=== PATIENT | female | born 1945 | race Caucasian/White ===

== ENCOUNTER → 2016-09-04 | Outpatient (CLI) | payer MEDICARE, OTHER ==
[2016-09-04 16:57] LABS: Anion Gap 12 mmol/L; Blood Urea Nitrogen 15 mg/dL (7-17); CH 29.7; CHCM 32.7; Carbon Dioxide 25 mmol/L (22-30); Chloride 103 mmol/L (98-107); HCT 41.8 % (34.0-46.0); HDW 2.66; HGB 13.2 gm/dL (11.4-16.0); MCH 28.9 pg (25.0-35.0); MCHC 31.7 g/dL (31.0-37.0); MCV 91.4 fL (80.0-100.0); Mean Platelet Volume 6.4; Non-African American GFR(MDRD) >60 (>60 ml/min/1.73 sqM); Potassium 3.7 mmol/L (3.5-5.1); RBC 4.58 m/uL (3.80-5.40); RDW 13.6 % (11.5-15.5); Sodium 140 mmol/L (137-145); WBC 6.7 k/uL (3.8-10.6)
== END | disposition home or self-care (01) ==
LOC: LABPAT 16:32
PROVIDERS: ATTEND Internal Medicine Interventional Cardiology
DX: Z01.812 Encounter for preprocedural laboratory examination (principal); I65.23 Occlusion and stenosis of bilateral carotid arteries
CPT/HCPCS: 80051; 82565; 84520; 85027

== ENCOUNTER 2016-09-18 06:20 | Day surgery (SDC) | payer MEDICARE, OTHER ==
[2016-09-14 08:44] VITALS: BMI 23.8
[~2016-09-18 06:20] MED LIST: SODIUM CHLORIDE 0.9% 1,000 ML in EMPTY BAG 1 BAG IV ONE
[2016-09-18 07:19] VITALS: RESP 16; TEMP 97.4
[2016-09-18] MEDS: MIDAZOLAM 2 MG/2 ML VIAL IV ONE ×2 (08:16→08:33)
[2016-09-18] MEDS ORDERED: LIDOCAINE 2% INJ 20 MG/ML SQ ONE ×2 (08:17→08:18)
[2016-09-18] MEDS ORDERED: IOHEXOL 350 MG/ML 100 ML BOTTLE INJ ONE (08:44)
[2016-09-18] MEDS ORDERED: SODIUM CHLORIDE 0.9% 1,000 ML IV SCH (09:00)
[2016-09-18] MEDS ORDERED: ACETAMINOPHEN IV (For NPO) 1,000 MG in EMPTY BAG 1 BAG IVPB STA (09:31)
--- NOTE | 2016-09-18 09:44 | PTCA ---
DATE OF SERVICE: 09/18/2016 PERFORMING PHYSICIAN: Medrado Brody M.D., Manager Urgent Care. PROCEDURE PERFORMED: 1. An aortic arch angiogram. 2. Selective right carotid angiogram. 3. Selective right and left carotid angiogram. INDICATION: This is a pleasant 71-year-old female patient with a known history of peripheral arterial disease as well as multiple comorbid conditions, who sees Dr. Lance Tarango as an outpatient, who underwent a carotid duplex study which showed severe right internal carotid artery disease. APPROACH: Right common femoral artery. COMPLICATIONS: None. LEVEL OF SEDATION: Moderate with a sedation length of 30 minutes. PROCEDURE DESCRIPTION: After obtaining an informed consent, the patient was brought to the Cardiac Sleeve Tailor. The right common femoral artery was cannulated using micropuncture technique under ultrasound guidance. The micropuncture wire passed easily, then I placed a 5 Danish sheath in the right common femoral artery. Subsequently, I did an aortic arch angiogram and I did selective right carotid angiogram using for the aortic arch a 5 Danish pigtail catheter and for the selective right carotid I uses JB2 catheter. The procedure was completed without any complication. SELECTIVE PERIPHERAL ANGIOGRAM: 1. The aortic arch is a type 2 arch, it is a calcified arch, without any aneurysmal dilatation. 2. The right carotid system: The right common carotid artery appeared to be angiographically normal. The right external carotid artery is angiographically normal. The right internal carotid artery has a critical lesion, seems to be in the range of 90%. 3. The left carotid appeared to have mild disease only. 4. The proximal left subclavian appeared to have a critical lesion, seems to be eccentric and very calcified in the range of 80% to 90%. CONCLUSION: 1. Type 2 aortic arch. 2. Critical right internal carotid disease. 3. Mild left carotid disease. 4. Critical disease involving the left subclavian artery.
[2016-09-18] MEDS ORDERED: fentaNYL (PF) 50 MCG/ML 2 ML AMP ONE (11:14)
--- NOTE | 2016-09-18 13:54 | IR ---
EXAMINATION TYPE: IR angio aortic arch DATE OF EXAM: 09/18/2016 9:02 AM COMPARISON: NONE HISTORY: Peripheral vascular occlusive disease. Fluoroscopy was applied to the referring clinician. See dictated report from cardiology.
[2016-09-18 15:51] VITALS: BP 128/58; PULSE 72
== END 2016-09-18 15:31 | disposition home health service (06) ==
LOC: CATHCVL 06:20
PROVIDERS: ATTEND Internal Medicine Interventional Cardiology
DX: I65.21 Occlusion and stenosis of right carotid artery (principal); I70.0 Atherosclerosis of aorta; I10 Essential (primary) hypertension; E78.00 Pure hypercholesterolemia, unspecified; Z95.1 Presence of aortocoronary bypass graft; Z82.49 Family history of ischemic heart disease and other diseases of the circulatory system; Z87.891 Personal history of nicotine dependence; Z79.82 Long term (current) use of aspirin; Z79.51 Long term (current) use of inhaled steroids; Z79.899 Other long term (current) drug therapy; Z88.8 Allergy status to other drugs, medicaments and biological substances
CPT/HCPCS: 76937; 36222; 99152; 99153; C1769 ×4; C1894; J2001; J2250; Q9967; J3010; J0131

== ENCOUNTER → 2016-10-27 | Outpatient (CLI) | payer MEDICARE, OTHER ==
[2016-10-27 13:02] LABS: CH 29.8; CHCM 32.9; HCT 41.6 % (34.0-46.0); HDW 2.54; HGB 13.2 gm/dL (11.4-16.0); MCH 28.9 pg (25.0-35.0); MCHC 31.8 g/dL (31.0-37.0); MCV 90.8 fL (80.0-100.0); Mean Platelet Volume 6.6; RBC 4.58 m/uL (3.80-5.40); RDW 13.8 % (11.5-15.5); WBC 7.5 k/uL (3.8-10.6)
[2016-10-27 13:15] LABS: Anion Gap 12 mmol/L; Blood Urea Nitrogen 19 mg/dL (7-17); Carbon Dioxide 26 mmol/L (22-30); Chloride 102 mmol/L (98-107); Non-African American GFR(MDRD) >60 (>60 ml/min/1.73 sqM); Potassium 4.2 mmol/L (3.5-5.1); Sodium 140 mmol/L (137-145)
== END | disposition home or self-care (01) ==
LOC: LABPAT 12:35
PROVIDERS: ATTEND Internal Medicine Interventional Cardiology
DX: Z01.812 Encounter for preprocedural laboratory examination (principal); I65.21 Occlusion and stenosis of right carotid artery
CPT/HCPCS: 80051; 82565; 84520; 85027; 87086

== ENCOUNTER 2016-11-06 07:21 | Inpatient (IN) | payer MEDICARE, OTHER ==
[2016-11-03 09:45] VITALS: BMI 23.4
[~2016-11-06 07:21] MED LIST changes: +ASPIRIN 325 MG TAB PO ONE
[2016-11-06] MEDS ORDERED: ASPIRIN 81 MG CHEW ONE (07:30)
[2016-11-06] MEDS ORDERED: LIDOCAINE 2% INJ 20 MG/ML SQ ONE (09:55)
[2016-11-06] MEDS ORDERED: BIVALIRUDIN BOLUS 250 MG/50 ML IV ONE (10:02)
[2016-11-06] MEDS ORDERED: BIVALIRUDIN 250 MG in SODIUM CHLORIDE 0.9% 50 ML IV ONE (10:08)
[2016-11-06] MEDS ORDERED: IOHEXOL 350 MG/ML 100 ML BOTTLE INJ ONE (11:36)
[2016-11-06] MEDS ORDERED: CLOPIDOGREL 75 MG TAB PO ONE (11:37)
[2016-11-06] MEDS ORDERED: ATROPINE SULFATE 0.1 MG/ML 10ML SYRINGE IV PRN (11:47)
[2016-11-06] MEDS ORDERED: NITROGLYCERIN SL TABS 0.4 MG TAB SUBLINGUAL PRN (11:47)
[2016-11-06] MEDS ORDERED: SODIUM CHLORIDE 0.9% 1,000 ML IV ONE (11:47)
[2016-11-06] MEDS ORDERED: MAG HYDROX/AL HYDROX/SIMETH 30 ML CUP PO PRN (11:47)
[2016-11-06] MEDS ORDERED: RX INFO: IV CONTRAST WAS GIVEN 1 EACH MISC MISCELLANE PRN (11:47)
[2016-11-06 12:29] LABS: Glucose,Whole Blood 114 mg/dL (75-99)
[2016-11-06] MEDS: ACETAMINOPHEN TAB 500 MG TAB PO PRN (13:38)
[2016-11-06] MEDS: IPRATROPIUM-ALBUTEROL 3 ML NEB INHALATION SCH ×3 (14:23→20:45)
[2016-11-06] MEDS: HYDROmorphone 1 MG/ML 1 ML SYRINGE IVP PRN ×2 (17:37→21:44)
[2016-11-06] MEDS: BUDESONIDE 1 MG/2 ML NEBU INHALATION SCH (20:45)
[2016-11-06] MEDS ORDERED: PRAVASTATIN SODIUM 20 MG TAB PO SCH (21:00)
[2016-11-07] MEDS: ONDANSETRON 4 MG/2 ML VIAL IVP PRN ×2 (01:15→08:50)
[2016-11-07] MEDS: HYDROmorphone 1 MG/ML 1 ML SYRINGE IVP PRN (04:18)
[2016-11-07 05:07] LABS: Basophils # (A) 0.1 k/uL (0-0.2); Basophils % (A) 1 %; CH 29.8; CHCM 32.8; Eosinophils # (A) 0.4 k/uL (0-0.7); Eosinophils % (A) 4 %; HCT 37.4 % (34.0-46.0); HDW 2.43; HGB 12.4 gm/dL (11.4-16.0); Luc # (Auto) 0.24; Luc % (Auto) 3; Lymphocytes # (A) 1.6 k/uL (1.0-4.8); Lymphocytes % (A) 18 %; MCH 30.2 pg (25.0-35.0); MCHC 33.2 g/dL (31.0-37.0); MCV 91.2 fL (80.0-100.0); Mean Platelet Volume 6.7; Monocytes # (A) 0.5 k/uL (0-1.0); Monocytes % (A) 6 %; Neutrophils # (A) 6.3 k/uL (1.3-7.7); Neutrophils % (A) 70 %; RDW 13.6 % (11.5-15.5); WBC 9.1 k/uL (3.8-10.6); WBC (Perox) 9.57
[2016-11-07 05:28] LABS: Anion Gap 9 mmol/L; Blood Urea Nitrogen 15 mg/dL (7-17); Calcium 9.5 mg/dL (8.4-10.2); Carbon Dioxide 22 mmol/L (22-30); Chloride 104 mmol/L (98-107); Glucose 125 mg/dL (74-99); Non-African American GFR(MDRD) >60 (>60 ml/min/1.73 sqM); Potassium 4.2 mmol/L (3.5-5.1); Sodium 135 mmol/L (137-145)
[2016-11-07 06:08] VITALS: TEMP 97.9
[2016-11-07] MEDS: BUDESONIDE 1 MG/2 ML NEBU INHALATION SCH (07:12)
[2016-11-07] MEDS: IPRATROPIUM-ALBUTEROL 3 ML NEB INHALATION SCH ×3 (07:12→15:21)
--- NOTE | 2016-11-07 07:31 | CE ---
DATE OF SERVICE: 11/06/2016 CAROTID STENTING PERFORMING PHYSICIAN: Medardo Brody MD, Advanced [employer] Associate. PROCEDURE PERFORMED: 1. Intracranial angiogram. 2. Selective right internal carotid angiogram. 3. Selective right common carotid angiogram. 4. Successful stenting of the right internal carotid artery using 8 to 6 x 30 mm exact self-expandable stent with a good angiographic result with adjunctive use 5 mm ( ) Shield filter for distal protection. 5. Selective right common femoral artery angiogram. INDICATION: This is a pleasant 71-year-old female patient who sees Dr. Constantino as well as sees Dr. Lance Tarango as an outpatient, who was found to have critical right internal carotid artery disease was identified by carotid duplex study as an outpatient as well as by carotid angiogram. She was brought today to undergo stenting of the right internal carotid artery. APPROACH: Right common femoral artery. COMPLICATIONS: None. LEVEL OF SEDATION: No medications were given for sedation for this procedure. PROCEDURE DESCRIPTION: After obtaining informed consent, the patient was brought to the Cardiac Book Jacket Cover Machine Operator. Right common femoral vein was cannulated using micropuncture technique. The micropuncture wire passed easily, then I placed a 6 Cameroonian sheath in the right common femoral vein. Subsequently, I did cannulate the right common femoral artery where I did cannulate that using micropuncture technique and the micropuncture wire passed easily, then at that point, I did exchange my micropuncture sheath into 90 cm 6 Cameroonian shutter sheath over an advantage wire but I had some difficulties advancing the sheath over the Glidewire, so I had to exchange my Glidewire into an advantage wire to get the sheath up in the descending aorta. Subsequently, anticoagulation was initiated using Angiomax. After that, I tried to cannulate the innominate artery using initially bottle gauger and I was unable. Then I tried using a Yin catheter and I was able to select the innominate. Subsequently, I did advance the Glidewire to the right common carotid artery. Then I advanced the Yin over the Glidewire, and I did selective right common carotid angiogram to prove that I was in the right structure. After that, I pulled the Glidewire, and I advanced initially an Advantage wire, and I tried to advance the shutter sheath over the Advantage wire and over the Yin but the sheath would not make the turn to innominate artery. At that point, I did exchange by Advantage wire into super core wire and I tried again and I was unable. After that, I did exchange my Yin catheter and I put the sheath dilator and I was able to get the sheath to the right common carotid artery. The dilator and wire were pulled out. Subsequently, I did intracranial angiogram and right common and internal carotid artery angiogram. After that, I did prep the ( ) filter and the filter was then deployed in the right internal carotid artery distal to the lesion. Subsequently, I did predilatation initially using 4.0 mm balloon. Subsequently, I deployed 8 to 6 x 30 mm self-expandable stent, where the stent was positioned under fluoroscopy guidance and then it was deployed. I post-dilated that stent using a 5 mm balloon. After that, I did selective right carotid angiogram which showed a good angiographic results with residual stenosis of about 20% to 30%. I did also intracranial angiogram. The procedure was completed without any complication. POSTPROCEDURE MANAGEMENT: 1. Dual antiplatelet therapy. 2. Risk factor modifications. 3. ICU admission. 4. Follow up with the patient.
[2016-11-07] MEDS ORDERED: ASPIRIN 325 MG TAB PO SCH (09:00)
--- NOTE | 2016-11-07 09:10 | IR ---
EXAMINATION TYPE: IR stent intravas non coronary DATE OF EXAM: 11/06/2016 12:12 PM COMPARISON: NONE HISTORY: Peripheral vascular occlusive disease. Fluoroscopy was applied to the referring clinician. See dictated report from cardiology.
[2016-11-07] MEDS ORDERED: CLOPIDOGREL 75 MG TAB PO SCH (12:00)
[2016-11-07] MEDS ORDERED: MULTIVITAMINS, THERA 1 EACH TAB PO SCH (12:00)
[2016-11-07] MEDS: ACETAMINOPHEN TAB 500 MG TAB PO PRN (12:21)
[2016-11-07 16:17] VITALS: BP 136/70; PULSE 76; RESP 17
--- NOTE | 2016-11-08 10:33 | DS ---
DATE OF ADMISSION: 11/06/2016 DATE OF DISCHARGE: 11/07/2016 This is a pleasant 71-year-old female patient with a past medical history significant for hypertension and dyslipidemia, who sees Dr. Lance Tarango as an outpatient, who was admitted to the hospital yesterday and underwent successful stenting of the right internal carotid artery with a good angiographic result and without any complication. The procedure was performed from the right groin. The right groin is soft and nontender and without any bruises. On follow-up with the patient today. She seems to be a bit nauseated and she was vomiting. Zofran was given to her with improvement in her symptoms. I am planning to keep the patient in the hospital for the next few hours. If she is feeling good, she might be able to be discharged home and I will follow up with the patient as an outpatient in the office next week. The patient is going to be discharged on dual antiplatelet therapy as well as a statin.
== END 2016-11-07 16:46 | disposition home or self-care (01) | DRG 36 ==
LOC: CATHCVL 07:21 → 6ICU 11:35 → OBSVTOIN 12:38 → 6ICU 12:38 → CATHCVL 12:38 → INTOOBSV 12:38
PROVIDERS: ADMIT Internal Medicine Interventional Cardiology; ATTEND Internal Medicine Interventional Cardiology
PROC: B3131ZZ Fluoroscopy of Right Common Carotid Artery using Low Osmolar Contrast (ICD-10-PCS; 2016-11-06)
PROC: B3161ZZ Fluoroscopy of Right Internal Carotid Artery using Low Osmolar Contrast (ICD-10-PCS; 2016-11-06)
PROC: B41F1ZZ Fluoroscopy of Right Lower Extremity Arteries using Low Osmolar Contrast (ICD-10-PCS; 2016-11-06)
PROC: 037K3DZ Dilation of Right Internal Carotid Artery with Intraluminal Device, Percutaneous Approach (ICD-10-PCS; principal; 2016-11-06 09:35)
DX: I65.21 Occlusion and stenosis of right carotid artery (principal); I10 Essential (primary) hypertension; E78.5 Hyperlipidemia, unspecified; I25.10 Atherosclerotic heart disease of native coronary artery without angina pectoris; E78.00 Pure hypercholesterolemia, unspecified; Z82.49 Family history of ischemic heart disease and other diseases of the circulatory system; Z95.1 Presence of aortocoronary bypass graft; Z87.891 Personal history of nicotine dependence; Z79.82 Long term (current) use of aspirin; Z79.51 Long term (current) use of inhaled steroids; Z79.899 Other long term (current) drug therapy
CPT/HCPCS: 37215; 80048; 85025; 94640

== ENCOUNTER 2016-11-10 18:57 | Emergency (ER) | payer MEDICARE, OTHER ==
--- NOTE | 2016-11-10 19:24 | ED ---
Chest Pain HPI - General Chief Complaint: Chest Pain Stated Complaint: CHEST PAIN Time Seen by Provider: 11/10/16 19:08 Source: patient Mode of arrival: ambulatory Limitations: no limitations - History of Present Illness Initial Comments: This patient is a 71-year-old woman who presents to be evaluated for substernal chest pain. She states that the symptoms came on about 2 hours ago after she had eaten peanut butter and crackers. She indicates the substernal area. States the pain as a tightness. She states it seems to come and go. It will last a number of minutes at a time, resolve but it does recur. The patient denies any worsening or relieving factors. She also denies any associated symptoms. MD Complaint: chest pain Onset/Timin -: hour(s) Onset: after eating Pain Location: substernal Pain Radiation: none Severity: moderate Quality: tightness Consistency: intermittent Improves With: nothing Worsens With: nothing Treatments Prior to Arrival: aspirin - Related Data Home Medications Medication Instructions Recorded Confirmed Multivit with Calcium,Iron,Min 1 tab PO DAILY 07/29/15 11/10/16 [Women's Daily Multivitamin] Budesonide [Pulmicort Flexhaler] 2 puff INHALATION RT-BID 09/14/16 11/10/16 Ipratropium-Albuterol Nebulize 3 ml INHALATION RT-QID 09/14/16 11/10/16 [Duoneb 0.5 mg-3 mg/3 ml Soln] amLODIPine [Norvasc] 5 mg PO DAILY 09/14/16 11/10/16 diphenhydrAMINE HCL [Benadryl] 50 mg PO BID PRN 11/10/16 11/10/16 Previous Rx's Medication Instructions Recorded Acetaminophen Tab [Tylenol] 500 mg PO Q6H PRN #30 tablet 04/22/16 Pravastatin Sodium [Pravachol] 20 mg PO HS #30 tab 04/22/16 Aspirin 325 mg PO DAILY #90 tab 11/07/16 Clopidogrel [Plavix] 75 mg PO DAILY #90 tab 11/07/16 Allergies Allergy/AdvReac Type Severity Reaction Status Date / Time egg Allergy Unknown Verified 11/10/16 19:24 ibuprofen Allergy Rash/Hives Verified 11/10/16 19:24 shellfish derived [Shrimp] Allergy Rash/Hives Verified 11/10/16 19:24 tomato Allergy Unknown Verified 11/10/16 19:24 Review of Systems ROS Statement: Those systems with pertinent positive or pertinent negative responses have been documented in the HPI. ROS Other: All systems not noted in ROS Statement are negative. Constitutional: Denies: fever, chills Respiratory: Denies: cough, dyspnea, wheezes Cardiovascular: Reports: chest pain. Denies: palpitations, orthopnea, edema, syncope Gastrointestinal: Denies: abdominal pain, nausea, vomiting Genitourinary: Denies: dysuria, hematuria Musculoskeletal: Denies: back pain Skin: Denies: rash Neurological: Denies: headache, weakness, numbness EKG Findings - EKG Results: EKG: interpreted by FLOR CASPER (Rate equals 69 bpm), sinus rhythm, normal axis, normal QRS, normal ST/T, no acute changes Past Medical History Past Medical History: Asthma, Coronary Artery Disease (CAD), Hyperlipidemia, Hypertension, Osteoarthritis (OA), Vascular Disorder Additional Past Medical History / Comment(s): STATES HEAD INJURY R/T A FALL, OSTEOPOROSIS, CHRONIC BACK PAIN, PAD, STATES USES A WHEELCHAIR MOST OF TIME, states has edema in both lower extrem. History of Any Multi-Drug Resistant Organisms: None Reported Past Surgical History: Coronary Bypass/CABG Additional Past Surgical History / Comment(s): CYST REMOVED FROM FINGER, FEM/FEM , SPINAL FUSION NECK, COURTNEY CATARACT SX, has a stent in R groin. stent in cartoid artery (right) Past Anesthesia/Blood Transfusion Reactions: No Reported Reaction Past Psychological History: No Psychological Hx Reported Smoking Status: Former smoker Past Alcohol Use History: None Reported Additional Past Alcohol Use History / Comment(s): quit smoking 2003, smoked for 45 yrs. SMOKED 1 PPD Past Drug Use History: None Reported - Past Family History Sister(s) Family Medical History: Cancer Additional Family Medical History / Comment(s): 2 sisters with breast ca Father Family Medical History: Myocardial Infarction (OK) Additional Family Medical History / Comment(s): several mi's Mother History Unknown: Yes Additional Family Medical History / Comment(s): mom was healthdied from natural causes. General Exam Limitations: no limitations General appearance: alert, in no apparent distress Head exam: Present: atraumatic, normocephalic Eye exam: Present: normal appearance. Absent: scleral icterus, conjunctival injection ENT exam: Present: normal oropharynx Neck exam: Present: normal inspection Respiratory exam: Present: normal lung sounds bilaterally. Absent: respiratory distress, wheezes, rales, rhonchi, stridor Cardiovascular Exam: Present: regular rate, normal rhythm, systolic murmur ( Patient has a grade 3/6 systolic ejection murmur at the left sternal border.). Absent: diastolic murmur, rubs, gallop GI/Abdominal exam: Present: soft. Absent: distended, tenderness, guarding, rebound, rigid, mass Extremities exam: Present: normal inspection, normal capillary refill. Absent: pedal edema, calf tenderness Back exam: Present: normal inspection. Absent: CVA tenderness (R), CVA tenderness (L) Neurological exam: Present: alert Skin exam: Present: warm, dry, intact, normal color. Absent: rash Course Vital Signs 11/10/16 11/10/16 11/10/16 19:00 19:03 21:25 Temperature 98.9 F 97.7 F Pulse Rate 76 77 69 Respiratory 18 20 18 Rate Blood Pressure 150/66 156/73 147/66 O2 Sat by Pulse 98 98 96 Oximetry 11/10/16 22:05 Temperature 97.9 F Pulse Rate 71 Respiratory 18 Rate Blood Pressure 145/67 O2 Sat by Pulse 96 Oximetry - Reevaluation(s) Reevaluation #1: 11/10/16 21:54 I reevaluated the patient about 40 minutes ago. The patient at that time states she is symptom-free and wants to go home. I did discuss with her previous history of significant vasculopathy that I would like to have her admitted to have the elocution teacher's check her, have telemetry monitoring, have serial cardiac enzymes. The patient is declining this. We did discuss rationale for having repeat troponin and she is willing to stay for this, and then would like to go home. Discussed risks associated and the patient willing to accept those. Disposition Clinical Impression: Unstable angina pectoris Disposition: HOME SELF-CARE Condition: Fair Instructions: Angina (ED) Referrals: Regan Constantino MD [Primary Care Provider] - 1-2 days
[2016-11-10 19:53] LABS: Basophils # (A) 0.1 k/uL (0-0.2); Basophils % (A) 1 %; CH 29.8; CHCM 33.7; Eosinophils # (A) 0.5 k/uL (0-0.7); Eosinophils % (A) 7 %; HCT 35.3 % (34.0-46.0); HDW 2.48; Luc # (Auto) 0.22; Luc % (Auto) 3; Lymphocytes # (A) 1.4 k/uL (1.0-4.8); Lymphocytes % (A) 21 %; MCH 30.2 pg (25.0-35.0); MCV 88.7 fL (80.0-100.0); Mean Platelet Volume 6.9; Monocytes # (A) 0.4 k/uL (0-1.0); Monocytes % (A) 6 %; Neutrophils # (A) 4.1 k/uL (1.3-7.7); Neutrophils % (A) 62 %; RBC 3.98 m/uL (3.80-5.40); RDW 13.8 % (11.5-15.5); WBC 6.6 k/uL (3.8-10.6); WBC (Perox) 6.69
[2016-11-10 20:02] LABS: ALT 43 U/L (9-52); AST 25 U/L (14-36); Alkaline Phosphatase 83 U/L (38-126); Anion Gap 11 mmol/L; Blood Urea Nitrogen 16 mg/dL (7-17); Calcium 9.7 mg/dL (8.4-10.2); Carbon Dioxide 25 mmol/L (22-30); Chloride 106 mmol/L (98-107); Glucose 100 mg/dL (74-99); Magnesium 2.1 mg/dL (1.6-2.3); Non-African American GFR(MDRD) >60 (>60 ml/min/1.73 sqM); Sodium 142 mmol/L (137-145); Total Bilirubin 0.2 mg/dL (0.2-1.3); Total Protein 6.9 g/dL (6.3-8.2)
[2016-11-10 20:03] LABS: INR 0.9 (<1.1); Prothrombin Time 9.7 sec (9.0-12.0)
[2016-11-10 20:04] LABS: Partial Thromboplastin Time 21.5 sec (22.0-30.0)
--- NOTE | 2016-11-10 20:10 | XR ---
EXAMINATION TYPE: XR chest 1V portable DATE OF EXAM: 11/10/2016 7:51 PM COMPARISON: NONE HISTORY: Chest pain and history of asthma. TECHNIQUE: Single frontal view of the chest is obtained. FINDINGS: There is no focal air space opacity, pleural effusion, or pneumothorax seen. The cardiac silhouette size is within normal limits. The osseous structures are intact. There are postsurgical changes of the chest visualized as well as partial visualization of cervical fusion device. IMPRESSION: No acute cardiopulmonary process. Postsurgical changes of the chest and cervical spine.
[2016-11-10 20:17] LABS: Creatine Kinase 49 U/L (30-135)
[2016-11-10 20:30] LABS: Creatine Kinase MB 0.9 ng/mL (0.0-2.4); Troponin I <0.012 ng/mL (0.000-0.034)
[2016-11-10 21:27] VITALS: RESP 18
[2016-11-10 23:28] VITALS: BP 155/67; PULSE 67; TEMP 97.7
== END 2016-11-10 23:28 | disposition home or self-care (01) ==
LOC: EC 18:57
DX: I20.0 Unstable angina (principal); I25.810 Atherosclerosis of coronary artery bypass graft(s) without angina pectoris; I10 Essential (primary) hypertension; J45.909 Unspecified asthma, uncomplicated; Z99.3 Dependence on wheelchair; Z87.891 Personal history of nicotine dependence; Z79.899 Other long term (current) drug therapy; Z79.51 Long term (current) use of inhaled steroids; Z91.013 Allergy to seafood; Z88.8 Allergy status to other drugs, medicaments and biological substances; Z91.018 Allergy to other foods
CPT/HCPCS: 36415; 71010; 80053; 82550; 82553; 83735; 84484; 85025; 85610; 85730; 93005; 99285

== ENCOUNTER → 2017-01-17 | Outpatient (CLI) | payer MEDICARE, OTHER ==
--- NOTE | 2017-01-17 13:12 | MM ---
Reason for exam: screening (asymptomatic). Last mammogram was performed 1 year and 6 months ago. History: Patient is postmenopausal. Family history of breast cancer in maternal aunt and breast cancer in sister at age 60. Benign US RT VAD breast biopsy of the right breast, July 14, 2011. Benign US right guided VAD of the right breast, June 24, 2009. Took hormonal contraceptives for 1 year beginning at age 18. Physical Findings: A clinical breast exam by your physician is recommended on an annual basis and results should be correlated with mammographic findings. MG 3D Screening Mammo W/Cad Bilateral CC and MLO view(s) were taken. Prior study comparison: July 27, 2015, bilateral MG screening mammo w CAD. July 02, 2014, bilateral MG screening mammo w CAD. The breast tissue is heterogeneously dense. This may lower the sensitivity of mammography. Benign calcifications. Nodular density upper outer quadrant in the right breast 7 cm from nipple. This finding is changed when compared with previous exams. ASSESSMENT: Incomplete: need additional imaging evaluation, BI-RAD 0 RECOMMENDATION: Special view mammogram of the right breast. If lesion persists on supplemental views, image directed ultrasound is recommended. [facility] will attempt to contact patient to return for supplemental views and ultrasound if indicated.
== END | disposition home or self-care (01) ==
LOC: RADMAMWWP 09:19
PROVIDERS: ATTEND Family Medicine
DX: Z12.31 Encounter for screening mammogram for malignant neoplasm of breast (principal); R92.2 Inconclusive mammogram; Z78.0 Asymptomatic menopausal state
CPT/HCPCS: 77063; G0202

== ENCOUNTER → 2017-01-19 | Outpatient (CLI) | payer MEDICARE, OTHER ==
--- NOTE | 2017-01-19 12:55 | MR ---
MR lumbar spine wo con Lumbar pain, weakness, walking difficulty, stenosis Multiplanar, multiecho imaging of the lumbar spine was obtained without contrast on a 3 Ca magnet. REFERENCE:None. FINDINGS: Paraspinal soft tissues are normal. There is a mild, degenerative grade 1 spondylolisthesis of L4 and L5. Vertebral body height and align ment otherwise maintained. Cord signal is maintained. The conus ends normally at the level of the L1-2 disc. At T12-L1, there is mild hypertrophic change in the facets. At L1-2, there is mild capsulitis and hypertrophic change in the facets. At L2-3, there is a bilobed disc displacement. Intervertebral foramina are widely maintained. There i s hypertrophic change and capsulitis within the facets. There is mild trefoiling of the thecal sac. At L3-4, the intervertebral foramina are well maintained. There are hypertrophic changes and capsulit is within the facets. There is mild trefoiling of the thecal sac. At L4-5, there is disc space loss and disc desiccation. There is a broad-based disc protrusion extend ing into the intervertebral foramina causing intervertebral foraminal narrowing worse on the left charity n the right. There is hypertrophic changes and capsulitis within the facets. There is mild central ca nal stenosis. At L5-S1, is disc space loss and disc desiccation. There is a central disc protrusion effacing the th ecal sac. This is also effacing the traversing S1 nerve roots bilaterally. The intervertebral foramin a appear well maintained. There is hypertrophic change within the facets. IMPRESSION: 1. DIFFUSE DEGENERATIVE DISC DISEASE AND FACET ARTHROPATHY. 2. MILD DEGENERATIVE GRADE 1 SPONDYLOLISTHESIS OF L4 ON L5. 3. MULTILEVEL INTERVERTEBRAL FORAMINAL NARROWING. 4. BROAD-BASED DISC PROTRUSION, L4-5 EXTENDING INTO THE INTERVERTEBRAL FORAMINA AND CAUSING INTERVERT EBRAL FORAMINAL NARROWING BILATERALLY WORSE ON THE LEFT THAN THE RIGHT. 5. SYNCOPE DISC PROTRUSION, L5-S1 EFFACING THE THECAL SAC AND ALSO THE TRAVERSING S1 NERVE ROOTS BILA TERALLY.
== END | disposition home or self-care (01) ==
LOC: RADMRIMAIN 11:26
PROVIDERS: ATTEND Orthopaedic Surgery
DX: M99.72 Connective tissue and disc stenosis of intervertebral foramina of thoracic region (principal); M43.16 Spondylolisthesis, lumbar region; M51.27 Other intervertebral disc displacement, lumbosacral region; M51.36 Other intervertebral disc degeneration, lumbar region; R55 Syncope and collapse
CPT/HCPCS: 72148

== ENCOUNTER → 2017-01-23 | Outpatient (CLI) | payer MEDICARE, OTHER ==
--- NOTE | 2017-01-23 14:10 | MM ---
Reason for exam: additional evaluation requested from abnormal screening. Last mammogram was performed less than 1 month ago. History: Patient is postmenopausal. Family history of breast cancer in maternal aunt and breast cancer in sister at age 60. Benign US RT VAD breast biopsy of the right breast, July 14, 2011. Benign US right guided VAD of the right breast, June 24, 2009. Took hormonal contraceptives for 1 year beginning at age 18. Physical Findings: Nurse did not find any significant physical abnormalities on exam. MG 3D Work Up W/Cad RT ML, spot compression CC, and spot compression MLO view(s) were taken of the right breast. Prior study comparison: January 17, 2017, bilateral MG 3d screening mammo w/cad. July 27, 2015, bilateral MG screening mammo w CAD. July 02, 2014, bilateral MG screening mammo w CAD. Nodular density does not persist on addiitonal views. These results were verbally communicated with the patient and result sheet given to the patient on 01/23/17. ASSESSMENT: Benign, BI-RAD 2 RECOMMENDATION: Return to routine screening mammogram schedule for both breasts.
== END | disposition home or self-care (01) ==
LOC: RADMAMWWP 12:50
PROVIDERS: ATTEND Family Medicine
DX: R92.8 Other abnormal and inconclusive findings on diagnostic imaging of breast (principal)
CPT/HCPCS: G0206; G0279

== ENCOUNTER → 2017-02-02 | Outpatient (CLI) | payer MEDICARE, OTHER ==
--- NOTE | 2017-02-02 15:58 | BD ---
EXAMINATION TYPE: MG DEXA axial skeleton. DATE OF EXAM: 02/02/2017 COMPARISON: 01.11.2016 CLINICAL HISTORY: V49.81 POST MENOPAUSAL STATUS, Z78.0 ASYMPTOMATIC MENOPAUSAL BONE MINERAL DENSITY: HISTORY: Postmenopausal female. OSTEOPOROSIS RISK FACTOR QUESTIONNAIRE -----Height: 60 IN -----Weight: 132 LBS FRAX RISK QUESTIONS: -----Alcohol (3 or more units per day): NO -----Family History (Parent hip fracture): NO -----Glucocorticoids (More than 3mos): NO (Ex: prednisone, prednisilone, methylprednisilone, dexamethasone, and hydrocortisone). -----History of Fracture in Adulthood: NO -----Secondary Osteoporosis: (1) Type 1 Diabetes: NO (2) Hyperthyroidism: NO (3) Menopause before 45: NO (4) Malnutrition: NO (5) Chronic liver disease: NO -----Rheumatoid Arthritis: NO -----Current Tobacco Use: NO RISK FACTORS: HISTORY OF: -----Active: MODERATE -----Postmenopausal woman: AGE 47 -----Frequent falls: YES RT LEG DRAGS MEDICATIONS: Currently use: -----Additional Medications: CALCIUM, VIT D, PRAVASTATIN, FISH OIL, MULTI VIT, GABAPENTIN, ALLERGY P ILLS, BABY ASPIRIN, EXAM MEASUREMENTS: Bone mineral densitometry was performed using the WeVue System. Bone mineral density as measured about the Lumbar spine is: ----- L1-L4(G/cm2): 1.244 T Score Values are as follows: ----- L2: -0.6 ----- L3: 1.4 ----- L4: 2.2 ----- L1-L4: 0.5 Bone mineral density has: Increased 22.2 % since study of: 05/07/2012 Bone mineral density about the R hip (g/cm2): 0.971 Bone mineral density about the L hip (g/cm2): 0.909 T Score values are as follows: -----R Neck: -0.5 -----L Neck: -0.9 -----R Intertrochanter: -1.3 -----L Intertrochanter: -0.5 Bone mineral density has: Increased 5.4 % since study of: 05/07/2012 IMPRESSION: -----Osteopenia (T Score between -2.5 and -1 as noted by T score values) RT HIP There is slightly increased risk of fracture and the patient may be considered for treatment. Re-Screen 1-2 years. NOTE: T-SCORE=SD OF THE YOUNG ADULT MEAN. Height: Weight: FRAX RISK QUESTIONS: Alcohol (3 or more units per day): NO Family History (Parent hip fracture): NO Glucocorticoids (More than 3mos): YES (Ex: prednisone, prednisolone, methylprednisolone, dexamethasone, and hydrocortisone). History of Fracture in Adulthood: NO Secondary Osteoporosis: NO 1. Type 1 Diabetes: NO 2. Hyperthyroidism: NO 3. Menopause before 45: NO 4. Malnutrition: NO 5. Chronic liver disease: NO Rheumatoid Arthritis: NO Current Tobacco Use: NO RISK FACTORS HISTORY OF: Family History of Osteoporosis: NO Active: NO Diet low in dairy products/other sources of calcium: NO Postmenopausal woman: 48 Lost more than 2 inches in height since high school: PROBABLY Frequent falls: IN W/C..BELTED Poor Health: FRAIL Hyperparathyroidism: NO Adrenal Insufficiency: NO MEDICATIONS: Prednisone or other steroids: ASTHMA, INHALERS How Long: FOR YRS Additional Medications: BP MEDS, STATINS, Additional History: BACK PAIN AND INSTABILITY, PT IN WHEELCHAIR EXAM MEASUREMENTS: Bone mineral densitometry was performed using the WeVue System. Bone mineral density as measured about the Lumbar spine is: ----- L1-L4(G/cm2): 1.133 T Score Values are as follows: ----- L1: -2.7 ----- L2: -1.1 ----- L3: 0.0 ----- L4: 1.6 ----- L1-L4: -0.4 Bone mineral density has: [facility] of: 01.11.2016 Bone mineral density about the R hip (g/cm2): 0.854 Bone mineral density about the L hip (g/cm2): 0.888 T Score values are as follows: -----R Neck: -1.3 -----L Neck: -1.1 -----R Total: -1.2 -----L Total: -1.0 Bone mineral density has: Decreased -8.9%nce study of: 01.11.2016 FRAX%'S: THERE IS A 9.9% CHANCE OF A MAJOR OSTEOPOROTIC FX AND A 1.7% CHANCE FOR A HIP FX.....PRO BABILITY IN 10 YRS TIME IMPRESSION: Osteopenia (T Score between -2.5 and -1 as noted by T score values There is slightly increased risk of fracture and the patient may be considered for treatment. Re-Screen 2-5 years. Bone density is diminished 7.3% within the lumbar spine from 01/11/2016 NOTE: T-SCORE=SD OF THE YOUNG ADULT MEAN.
== END | disposition home or self-care (01) ==
LOC: RADBDWWP 14:02
PROVIDERS: ATTEND Family Medicine
DX: M85.89 Other specified disorders of bone density and structure, multiple sites (principal); Z78.0 Asymptomatic menopausal state
CPT/HCPCS: 77080

== ENCOUNTER 2017-05-21 11:58 | Inpatient (IN) | payer MEDICARE, OTHER ==
[2017-05-21] MEDS ORDERED: RX INFO: IV CONTRAST WAS GIVEN 1 EACH MISC MISCELLANE PRN (12:40)
[2017-05-21 13:41] LABS: Basophils # (A) 0.1 k/uL (0-0.2); Basophils % (A) 1 %; CH 28.9; CHCM 32.7; Eosinophils # (A) 0.6 k/uL (0-0.7); Eosinophils % (A) 8 %; HCT 39.3 % (34.0-46.0); HDW 2.49; HGB 12.9 gm/dL (11.4-16.0); Luc # (Auto) 0.15; Luc % (Auto) 2; Lymphocytes # (A) 1.3 k/uL (1.0-4.8); Lymphocytes % (A) 17 %; MCH 29.1 pg (25.0-35.0); MCHC 32.8 g/dL (31.0-37.0); MCV 88.7 fL (80.0-100.0); Monocytes # (A) 0.4 k/uL (0-1.0); Monocytes % (A) 6 %; Neutrophils # (A) 5.1 k/uL (1.3-7.7); Neutrophils % (A) 67 %; RBC 4.44 m/uL (3.80-5.40); RDW 14.8 % (11.5-15.5); WBC 7.7 k/uL (3.8-10.6); WBC (Perox) 7.89
--- NOTE | 2017-05-21 13:50 | XR ---
EXAMINATION TYPE: XR KUB DATE OF EXAM: 05/21/2017 COMPARISON: NONE HISTORY: Pain TECHNIQUE: Single supine KUB image of the abdomen is obtained FINDINGS: Small bowel demonstrates no evidence for dilatation or air fluid levels. Gas and fecal material is seen in non-distended colon. No convincing evidence for pneumoperitoneum. No unusual calcifications. The lung bases are clear. The osseous structures are intact. IMPRESSION: 1. Overall nonobstructive bowel gas pattern.
[2017-05-21 13:53] LABS: ALT 24 U/L (9-52); AST 17 U/L (14-36); Alkaline Phosphatase 93 U/L (38-126); Amylase <30 U/L (30-110); Anion Gap 12 mmol/L; Blood Urea Nitrogen 20 mg/dL (7-17); Calcium 9.9 mg/dL (8.4-10.2); Carbon Dioxide 21 mmol/L (22-30); Chloride 105 mmol/L (98-107); Glucose 119 mg/dL (74-99); Non-African American GFR(MDRD) >60 (>60 ml/min/1.73 sqM); Potassium 4.3 mmol/L (3.5-5.1); Sodium 138 mmol/L (137-145); Total Bilirubin 0.3 mg/dL (0.2-1.3)
--- NOTE | 2017-05-21 15:14 | CT ---
EXAMINATION TYPE: CT abdomen pelvis w con DATE OF EXAM: 05/21/2017 HISTORY: Lower pelvic pain. CT DLP: 389.7mGycm Automated Exposure Control for Dose Reduction was Utilized. CONTRAST: CT scan of the abdomen and pelvis is performed with IV Contrast, patient injected with 100 mL of Omni paque 300. COMPARISON: None. FINDINGS: LUNG BASES: Bibasilar subsegmental dependent atelectasis is present. LIVER/GB: There is no intrahepatic biliary ductal dilatation. Hepatic parenchyma enhances homogeneous ly without focal lesion. The gallbladder is elongated without pericholecystic fluid or right upper qu adrant fat stranding, however common bile duct is mildly enlarged for the patient's age at 8 oh meter s and coronal images. Additionally there is prominence of the pancreatic duct measuring up to 4 mm at the pancreatic head. No discrete pancreatic mass is seen, however further workup is recommended to e nsure no underlying obstructing mass. PANCREAS: Ductal dilatation as described above is evident. No discrete pancreatic masses seen. SPLEEN: No significant abnormality is seen. ADRENALS: Right adrenal gland is unremarkable. In the left adrenal gland there is a 1.8 x 2.3 cm nodu le best seen on coronal images on series 7 image 33 and on axial images series 3 image 21. This is hi gh density and not compatible with a benign adenoma. KIDNEYS: The kidneys enhance and excrete symmetrically without focal mass. BOWEL: Large amount of stool in rectal gas identified with the rectum distended up to 7.4 cm. Moderat e amount of retained stool seen throughout the remainder of the nondilated colon. No evidence of sharon l obstruction. Small bowel feces sign is identified throughout the distal small bowel compatible with decreased propulsion and/or ileus/increased transit time. UTERUS/ADNEXA: Calcified dystrophic uterine leiomyoma is present. LYMPH NODES: No greater than 1cm abdominal or pelvic lymph nodes are appreciated. OSSEOUS STRUCTURES: Multilevel resection of the posterior elements from L3 through S1 is seen with pe dicular screws and fixation rods creating spray artifact and partially obscuring visualization of the surrounding structures including the abdominal aorta. OTHER: There is an infrarenal abdominal aortic aneurysm measuring up to 3.0 x 3.1 x 5.6 cm. The dista l aspect of this aneurysm there is an aortoiliac stent graft extending into the right common iliac ar fidel. There is total occlusion of the left common iliac artery with a femoral-femoral bypass graft an d patency of the proximal visualized femoral artery on the left. There is patency of the right common and external as well as visualized internal iliac arteries. IMPRESSION: 1. Distention of the rectum with stool and gas up to 7.4 cm with moderate amount of retained colonic stool and no evidence of bowel obstruction although small bowel feces sign is seen throughout the sma ll bowel indicative of ileus/increased transit time. 2. Common bile duct and pancreatic ductal dilatation without discrete mass although findings raise sewell spicion for underlying pancreatic mass and MRCP with and without contrast is recommended for further evaluation and/or endoscopy. 3. Left adrenal gland nodule measuring 2.3 cm that is not compatible with a benign adenoma and can al so be evaluated on the above recommended MRI. 4. Total occlusion of the left common iliac artery with patency of the right common iliac artery and patency of the femorofemoral bypass graft and upper visualized left femoral artery. 5. Infrarenal abdominal aortic aneurysm with right patent aortoiliac endograft.
[2017-05-21 15:20] LABS: Appearance,Urine Clear (Clear); Bilirubin,Urine Negative (Negative); Glucose,Urine (UA) Negative (Negative); Ketones,Urine Negative (Negative); Leukocyte Esterase,Urine Negative (Negative); Nitrite,Urine Negative (Negative); PH, Urine 6.5 (5.0-8.0); Protein,Urine Negative (Negative); Specific Gravity,Urine 1.031 (1.001-1.035); UA Billing (MACRO vs. MICRO) CHEM; Urobilinogen,Urine <2.0 mg/dL (<2.0)
[2017-05-21] MEDS ORDERED: POLYETHYLENE GLYCOL 3350 17 GM POWD.PACK PO STA (15:30)
[2017-05-21] MEDS ORDERED: DOCUSATE 100 MG CAP PO STA (15:30)
[2017-05-21] MEDS ORDERED: ONDANSETRON 4 MG/2 ML VIAL IVP PRN (15:33)
[2017-05-21] MEDS ORDERED: NA PHOS,M-B/NA PHOS,DI-BA 133 ML ENEMA RECTAL PRN ×2 (15:33→15:37)
[2017-05-21] MEDS ORDERED: NALOXONE 0.4 MG/ML 1 ML VIAL IV PRN (15:33)
[2017-05-21] MEDS ORDERED: DOCUSATE 100 MG CAP PO PRN (15:33)
[2017-05-21] MEDS ORDERED: BISACODYL 10 MG SUPP RECTAL PRN ×2 (15:33→15:37)
--- NOTE | 2017-05-21 15:33 | ED ---
Abdominal Pain HPI - General Chief Complaint: Abdominal Pain Stated Complaint: abdominal pain Time Seen by Provider: 05/21/17 12:27 Source: patient, EMS Mode of arrival: EMS Limitations: no limitations - History of Present Illness Initial Comments: Patient complains of abdominal pain, discomfort, distention. Her symptoms are getting worse for several days. She has taken no medication for this. It has been greater than 5 days since she had a bowel movement. She has no chest or back pain. She has no lightheadedness or dizziness. She has no unusual bleeding. She has no black or tarry stool. - Related Data Home Medications Medication Instructions Recorded Confirmed Ipratropium-Albuterol Nebulize 3 ml INHALATION RT-QID@08,,,09/14/1605/21 [Duoneb 0.5 mg-3 mg/3 ml Soln] amLODIPine [Norvasc] 5 mg PO DAILY@0800 09/14/16 05/21/17 Acetaminophen Tab [Tylenol Tab] 500 mg PO Q8H PRN 05/21/17 05/21/17 Aspirin 81 mg PO DAILY@1700 05/21/17 05/21/17 Baclofen 10 mg PO TID@0600,1400,209905/21/17 05/21/17 Bisacodyl [Dulcolax] 10 mg RECTAL DAILY PRN 05/21/17 05/21/17 Budesonide [Pulmicort] 0.5 mg INHALATION RT-BID 05/21/17 05/21/17 Clopidogrel [Plavix] 75 mg PO DAILY@0800 05/21/17 05/21/17 Docusate [Colace] 100 mg PO DAILY@0800 05/21/17 05/21/17 Docusate [Colace] 200 mg PO HS@2100 05/21/17 05/21/17 Ferrous Sulfate [Feosol] 325 mg PO DAILY@1700 05/21/17 05/21/17 Gabapentin [Neurontin] 200 mg PO TID@0800,1400,2100 05/21/17 05/21/17 Isosorbide Dinitrate [Isordil] 20 mg PO BID@0800,1700 05/21/17 05/21/17 Lidocaine 5% Patch [Lidoderm] 1 patch TOPICAL DAILY 05/21/17 05/21/17 Lisinopril [Zestril] 10 mg PO DAILY@0800 05/21/17 05/21/17 Magnesium Hydroxide [Milk of 2,400 mg PO DAILY PRN 05/21/17 05/21/17 Magnesia] Methocarbamol [Robaxin-750] 750 mg PO Q6H PRN 05/21/17 05/21/17 Metoprolol Tartrate [Lopressor] 25 mg PO BID@0800,1700 05/21/17 05/21/17 Na Phos,M-B/Na Phos,Di-Ba [Fleet 133 ml RECTAL DAILY PRN 05/21/17 05/21/17 Adult] Nitroglycerin Sl Tabs [Nitrostat] 0.4 mg SUBLINGUAL Q5M PRN 05/21/17 05/21/17 Ondansetron [Zofran] 4 mg PO Q8HR PRN 05/21/17 05/21/17 Polyethylene Glycol 3350 [Miralax] 17 gm PO DAILY@0800 05/21/17 05/21/17 Psyllium Husk (with Sugar) 6 gm PO DAILY@0800 05/21/17 05/21/17 [Metamucil Powder] guaiFENesin [Diabetic Tussin Ex] 200 mg PO Q4H PRN 05/21/17 05/21/17 oxyCODONE HCL [Oxyir] 10 mg PO Q3H PRN 05/21/17 05/21/17 Allergies Allergy/AdvReac Type Severity Reaction Status Date / Time acetaminophen [From [place]] Allergy Unknown Verified 05/21/17 12:06 codeine Allergy Unknown Verified 05/21/17 12:06 egg Allergy Unknown Verified 11/10/16 19:24 hydrocodone [From [place]] Allergy Unknown Verified 05/21/17 12:06 hydromorphone [From Dilaudid] Allergy Unknown Verified 05/21/17 12:06 ibuprofen Allergy Rash/Hives Verified 11/10/16 19:24 shellfish derived [Shrimp] Allergy Rash/Hives Verified 11/10/16 19:24 tomato Allergy Unknown Verified 11/10/16 19:24 Review of Systems ROS Statement: Those systems with pertinent positive or pertinent negative responses have been documented in the HPI. ROS Other: All systems not noted in ROS Statement are negative. Past Medical History Past Medical History: Asthma, Coronary Artery Disease (CAD), Hyperlipidemia, Hypertension, Osteoarthritis (OA), Vascular Disorder Additional Past Medical History / Comment(s): STATES HEAD INJURY R/T A FALL, OSTEOPOROSIS, CHRONIC BACK PAIN, PAD, STATES USES A WHEELCHAIR MOST OF TIME, states has edema in both lower extrem. History of Any Multi-Drug Resistant Organisms: None Reported Past Surgical History: Coronary Bypass/CABG Additional Past Surgical History / Comment(s): CYST REMOVED FROM FINGER, FEM/FEM , SPINAL FUSION NECK, COURTNEY CATARACT SX, has a stent in R groin. stent in cartoid artery (right) Past Anesthesia/Blood Transfusion Reactions: No Reported Reaction Past Psychological History: Anxiety Smoking Status: Former smoker Past Alcohol Use History: None Reported Past Drug Use History: None Reported - Past Family History Sister(s) Family Medical History: Cancer Additional Family Medical History / Comment(s): 2 sisters with breast ca Father Family Medical History: Myocardial Infarction ([place]) Additional Family Medical History / Comment(s): several mi's Mother History Unknown: Yes Additional Family Medical History / Comment(s): mom was healthdied from natural causes. General Exam Limitations: no limitations General appearance: alert, in no apparent distress Head exam: Present: atraumatic, normocephalic, normal inspection Eye exam: Present: normal appearance, PERRL, EOMI. Absent: scleral icterus, conjunctival injection, periorbital swelling ENT exam: Present: normal exam, mucous membranes moist Neck exam: Present: normal inspection. Absent: tenderness, meningismus, lymphadenopathy Respiratory exam: Present: normal lung sounds bilaterally. Absent: respiratory distress, wheezes, rales, rhonchi, stridor Cardiovascular Exam: Present: regular rate, normal rhythm, normal heart sounds. Absent: systolic murmur, diastolic murmur, rubs, gallop, clicks GI/Abdominal exam: Present: soft, distended, tenderness, normal bowel sounds. Absent: guarding, rebound, rigid Extremities exam: Present: normal inspection, full ROM, normal capillary refill. Absent: tenderness, pedal edema, joint swelling, calf tenderness Back exam: Present: normal inspection Neurological exam: Present: alert, oriented X3, CN II-XII intact Psychiatric exam: Present: normal affect, normal mood Skin exam: Present: warm, dry, intact, normal color. Absent: rash Course Vital Signs 05/21/17 05/21/17 05/21/17 12:01 13:06 14:51 Temperature 96.9 F L Pulse Rate 77 72 73 Respiratory 23 20 20 Rate Blood Pressure 182/83 170/83 O2 Sat by Pulse 91 L 94 L 96 Oximetry Medical Decision Making - Medical Decision Making Patient presents with abdominal discomfort and distention. She is diffusely tender. Laboratory studies are unremarkable. Her CT demonstrates ileus, with colonic distention and large constipation. I gave her Colace and MiraLAX. She has not had any relief of symptoms. He was in the severe nature of her condition I feel she would likely require admission to hospital. Additionally, her CT reveals possible pancreatic mass. Therefore she will be admitted. - Lab Data Result diagrams: 05/21/17 13:30 05/21/17 13:30 Lab Results 05/21/17 05/21/17 05/21/17 Range/Units 13:30 13:30 13:30 WBC 7.7 (3.8-10.6) k/uL RBC 4.44 (3.80-5.40) m/uL Hgb 12.9 (11.4-16.0) gm/dL Hct 39.3 (34.0-46.0) % MCV 88.7 (80.0-100.0) fL MCH 29.1 (25.0-35.0) pg MCHC 32.8 (31.0-37.0) g/dL RDW 14.8 (11.5-15.5) % Plt Count 350 (150-450) k/uL Neutrophils % 67 % Lymphocytes % 17 % Monocytes % 6 % Eosinophils % 8 % Basophils % 1 % Neutrophils # 5.1 (1.3-7.7) k/uL Lymphocytes # 1.3 (1.0-4.8) k/uL Monocytes # 0.4 (0-1.0) k/uL Eosinophils # 0.6 (0-0.7) k/uL Basophils # 0.1 (0-0.2) k/uL Sodium 138 (137-145) mmol/L Potassium 4.3 (3.5-5.1) mmol/L Chloride 105 (98-107) mmol/L Carbon Dioxide 21 L (22-30) mmol/L Anion Gap 12 mmol/L BUN 20 H (7-17) mg/dL Creatinine 0.66 (0.52-1.04) mg/dL Est GFR (MDRD) Af Amer >60 (>60 ml/min/1.73 sqM) Est GFR (MDRD) Non-Af >60 (>60 ml/min/1.73 sqM) Glucose 119 H (74-99) mg/dL Calcium 9.9 (8.4-10.2) mg/dL Total Bilirubin 0.3 (0.2-1.3) mg/dL AST 17 (14-36) U/L ALT 24 (9-52) U/L Alkaline Phosphatase 93 (38-126) U/L Troponin I <0.012 (0.000-0.034) ng/mL Total Protein 7.0 (6.3-8.2) g/dL Albumin 4.2 (3.5-5.0) g/dL Amylase <30 L (30-110) U/L Lipase 31 (23-300) U/L Urine Color Urine Appearance (Clear) Urine pH (5.0-8.0) Ur Specific Squire (1.001-1.035) Urine Protein (Negative) Urine Glucose (UA) (Negative) Urine Ketones (Negative) Urine Blood (Negative) Urine Nitrite (Negative) Urine Bilirubin (Negative) Urine Urobilinogen (<2.0) mg/dL Ur Leukocyte Esterase (Negative) 05/21/17 Range/Units 15:08 WBC (3.8-10.6) k/uL RBC (3.80-5.40) m/uL Hgb (11.4-16.0) gm/dL Hct (34.0-46.0) % MCV (80.0-100.0) fL MCH (25.0-35.0) pg MCHC (31.0-37.0) g/dL RDW (11.5-15.5) % Plt Count (150-450) k/uL Neutrophils % % Lymphocytes % % Monocytes % % Eosinophils % % Basophils % % Neutrophils # (1.3-7.7) k/uL Lymphocytes # (1.0-4.8) k/uL Monocytes # (0-1.0) k/uL Eosinophils # (0-0.7) k/uL Basophils # (0-0.2) k/uL Sodium (137-145) mmol/L Potassium (3.5-5.1) mmol/L Chloride (98-107) mmol/L Carbon Dioxide (22-30) mmol/L Anion Gap mmol/L BUN (7-17) mg/dL Creatinine (0.52-1.04) mg/dL Est GFR (MDRD) Af Amer (>60 ml/min/1.73 sqM) Est GFR (MDRD) Non-Af (>60 ml/min/1.73 sqM) Glucose (74-99) mg/dL Calcium (8.4-10.2) mg/dL Total Bilirubin (0.2-1.3) mg/dL AST (14-36) U/L ALT (9-52) U/L Alkaline Phosphatase (38-126) U/L Troponin I (0.000-0.034) ng/mL Total Protein (6.3-8.2) g/dL Albumin (3.5-5.0) g/dL Amylase (30-110) U/L Lipase (23-300) U/L Urine Color Light Yellow Urine Appearance Clear (Clear) Urine pH 6.5 (5.0-8.0) Ur Specific Squire 1.031 (1.001-1.035) Urine Protein Negative (Negative) Urine Glucose (UA) Negative (Negative) Urine Ketones Negative (Negative) Urine Blood Negative (Negative) Urine Nitrite Negative (Negative) Urine Bilirubin Negative (Negative) Urine Urobilinogen <2.0 (<2.0) mg/dL Ur Leukocyte Esterase Negative (Negative) 05/21/17 15:31 Twelve-lead EKG obtained, interpreted by me showing ventricular rate 73 bpm, normal KS interval and Tru complex is, no ST elevation or depression, interpreted by me as normal sinus rhythm. Disposition Clinical Impression: Abdominal pain Disposition: ADMITTED IP TO THIS HOSP Condition: Fair Referrals: Regan Constantino MD [Primary Care Provider] - 1-2 days Time of Disposition: 15:32
[2017-05-21] MEDS ORDERED: MAGNESIUM HYDROXIDE 2,400 MG/10 ML CUP PO PRN (15:37)
[2017-05-21] MEDS ORDERED: NITROGLYCERIN SL TABS 0.4 MG TAB SUBLINGUAL PRN (15:37)
[2017-05-21] MEDS ORDERED: ACETAMINOPHEN TAB 500 MG TAB PO PRN (15:37)
[2017-05-21] MEDS ORDERED: ONDANSETRON 4 MG TAB PO PRN (15:37)
[2017-05-21] MEDS ORDERED: guaiFENesin SYRUP 100MG/5ML 200 MG/10 ML CUP PO PRN (15:37)
[2017-05-21] MEDS: SODIUM CHLORIDE 0.9% 1,000 ML IV SCH (15:41)
[2017-05-21] MEDS: METOPROLOL TARTRATE 25 MG TAB PO SCH (17:04)
[2017-05-21] MEDS: ISOSORBIDE DINITRATE 20 MG TAB PO SCH (17:04)
[2017-05-21] MEDS: FERROUS SULFATE 325 MG TAB PO SCH (17:04)
[2017-05-21] MEDS: ASPIRIN 81 MG PO SCH (17:04)
[2017-05-21] MEDS: IPRATROPIUM-ALBUTEROL 3 ML NEB INHALATION SCH ×2 (19:19→19:39)
[2017-05-21] MEDS: BUDESONIDE 0.5 MG/2 ML NEBU INHALATION SCH (19:39)
[2017-05-21] MEDS: DOCUSATE 100 MG CAP PO SCH (20:43)
[2017-05-21] MEDS: traMADol 50 MG TAB PO PRN (20:43)
[2017-05-21] MEDS: BACLOFEN 10 MG TAB PO SCH (20:43)
[2017-05-21] MEDS: GABAPENTIN 100 MG CAP PO SCH (20:43)
--- NOTE | 2017-05-21 22:47 | P.HPIM ---
History of Present Illness H&P Date: 05/21/17 Chief Complaint: Abdominal pain Patient is a 71-year-old male with known history of hypertension, hyperlipidemia , coronary artery disease with history of bypass graft, peripheral vascular disease with aortofemoral bypass and recent spinal fusion neck surgery on March 08 present ER with complains of abdominal pain, discomfort, distention. Her symptoms are getting worse for several days. She has taken no medication for this. It has been greater than 5 days since she had a bowel movement. She has no chest or back pain. She has no lightheadedness or dizziness. She has no unusual bleeding. She has no black or tarry stool. No nausea or vomiting. Patient had fusion neck surgery currently in the rehab. KUB x-ray showed non-obstructive bowel gas pattern. CTabdominen & pelvis showed distention of the rectum with stool, common biliary duct and pancreatic duct dilation and patency of femoral femoral bypass. Review of Systems Constitutional: Patient denies any fever or chills . No generalized weakness or weight loss. Abdomen: Patient does have nausea and abdominal pain no vomiting Cardiovascular: Patient denies any chest pain or short of breath no palpitations. Respiratory: patient denied any cough is from production. No shortness of breath Neurologic: Patient denied any numbness or tingling headache. Musculoskeletal: Patient denies any complaints of joint swelling or deformity. Skin: Negative Psychiatric: Negative Endocrine: No heat or cold intolerance. No recent weight gain. Genitourinary: No dysuria or hematuria. All other 14 point ROS negative except the above Past Medical History Past Medical History: Asthma, Coronary Artery Disease (CAD), Hyperlipidemia, Hypertension, Osteoarthritis (OA), Vascular Disorder Additional Past Medical History / Comment(s): STATES HEAD INJURY R/T A FALL, OSTEOPOROSIS, CHRONIC BACK PAIN, PAD, STATES USES A WHEELCHAIR MOST OF TIME, states has edema in both lower extrem. History of Any Multi-Drug Resistant Organisms: None Reported Past Surgical History: Coronary Bypass/CABG Additional Past Surgical History / Comment(s): CYST REMOVED FROM FINGER, FEM/FEM , SPINAL FUSION NECK, COURTNEY CATARACT SX, has a stent in R groin. stent in cartoid artery (right) Past Anesthesia/Blood Transfusion Reactions: No Reported Reaction Past Psychological History: Anxiety Smoking Status: Former smoker Past Alcohol Use History: None Reported Past Drug Use History: None Reported - Past Family History Sister(s) Family Medical History: Cancer Additional Family Medical History / Comment(s): 2 sisters with breast ca Father Family Medical History: Myocardial Infarction ([place]) Additional Family Medical History / Comment(s): several mi's Mother History Unknown: Yes Additional Family Medical History / Comment(s): mom was healthdied from natural causes. Medications and Allergies Home Medications Medication Instructions Recorded Confirmed Type Ipratropium-Albuterol Nebulize 3 ml INHALATION RT-QID@08,,,09/14/1605/21 History [Duoneb 0.5 mg-3 mg/3 ml Soln] amLODIPine [Norvasc] 5 mg PO DAILY@0800 09/14/16 05/21/17 History Acetaminophen Tab [Tylenol Tab] 500 mg PO Q8H PRN 05/21/17 05/21/17 History Aspirin 81 mg PO DAILY@1700 05/21/17 05/21/17 History Baclofen 10 mg PO TID@0600,1400,209905/21/17 05/21/17 History Bisacodyl [Dulcolax] 10 mg RECTAL DAILY PRN 05/21/17 05/21/17 History Budesonide [Pulmicort] 0.5 mg INHALATION RT-BID 05/21/17 05/21/17 History Clopidogrel [Plavix] 75 mg PO DAILY@0800 05/21/17 05/21/17 History Docusate [Colace] 100 mg PO DAILY@0800 05/21/17 05/21/17 History Docusate [Colace] 200 mg PO HS@209905/21/17 05/21/17 History Ferrous Sulfate [Feosol] 325 mg PO DAILY@1700 05/21/17 05/21/17 History Gabapentin [Neurontin] 200 mg PO TID@0800,1400,2100 05/21/17 05/21/17 History Isosorbide Dinitrate [Isordil] 20 mg PO BID@0800,1700 05/21/17 05/21/17 History Lidocaine 5% Patch [Lidoderm] 1 patch TOPICAL DAILY 05/21/17 05/21/17 History Lisinopril [Zestril] 10 mg PO DAILY@0800 05/21/17 05/21/17 History Magnesium Hydroxide [Milk of 2,400 mg PO DAILY PRN 05/21/17 05/21/17 History Magnesia] Methocarbamol [Robaxin-750] 750 mg PO Q6H PRN 05/21/17 05/21/17 History Metoprolol Tartrate [Lopressor] 25 mg PO BID@0800,1700 05/21/17 05/21/17 History Na Phos,M-B/Na Phos,Di-Ba [Fleet 133 ml RECTAL DAILY PRN 05/21/17 05/21/17 History Adult] Nitroglycerin Sl Tabs [Nitrostat] 0.4 mg SUBLINGUAL Q5M PRN 05/21/17 05/21/17 History Ondansetron [Zofran] 4 mg PO Q8HR PRN 05/21/17 05/21/17 History Polyethylene Glycol 3350 [Miralax] 17 gm PO DAILY@0800 05/21/17 05/21/17 History Psyllium Husk (with Sugar) 6 gm PO DAILY@0800 05/21/17 05/21/17 History [Metamucil Powder] guaiFENesin [Diabetic Tussin Ex] 200 mg PO Q4H PRN 05/21/17 05/21/17 History oxyCODONE HCL [Oxyir] 10 mg PO Q3H PRN 05/21/17 05/21/17 History Allergies Allergy/AdvReac Type Severity Reaction Status Date / Time acetaminophen [From [place]] Allergy Unknown Verified 05/21/17 12:06 codeine Allergy Unknown Verified 05/21/17 12:06 egg Allergy Unknown Verified 11/10/16 19:24 hydrocodone [From [place]] Allergy Unknown Verified 05/21/17 12:06 hydromorphone [From Dilaudid] Allergy Unknown Verified 05/21/17 12:06 ibuprofen Allergy Rash/Hives Verified 11/10/16 19:24 shellfish derived [Shrimp] Allergy Rash/Hives Verified 11/10/16 19:24 tomato Allergy Unknown Verified 11/10/16 19:24 Physical Exam Vitals: Vital Signs Temp Pulse Resp BP Pulse Ox 05/21/17 15:45 97.7 F 70 20 146/86 94 L 05/21/17 14:51 73 20 170/83 96 05/21/17 13:06 72 20 94 L 05/21/17 12:01 96.9 F L 77 23 182/83 91 L Intake and Output 05/21/17 05/21/17 05/21/17 06:59 14:59 22:59 Other: Weight 48.081 kg Patient Weight 05/22/17 06:59 Weight 48.081 kg PHYSICAL EXAMINATION: Patient is lying in the bed comfortably, no acute distress, awake alert and oriented.. HEENT: Normocephalic. Neck is supple. Pupils reactive. Nostrils clear. Oral cavity is moist. Ears reveal no drainage. Neck reveals no JVD, carotid bruits, or thyromegaly. CHEST EXAMINATION: Trachea is central. Symmetrical expansion. Lung rahman clear to auscultation and percussion. CARDIAC: Normal S1, S2 with no gallops. No murmurs ABDOMEN: Soft. Slightly distended. Bowel sounds present. No abdominal bruits. Extremities: reveal no edema. No clubbing or cyanosis Neurologically awake, alert, oriented x3 with well-coordinated movements. No focal deficits noted Skin: No rash or skin lesions. Psychiatric: Operative. Nonsuicidal Musculoskeletal: No joint swelling or deformity. Normal range of motion. Results CBC & Chem 7: 05/21/17 13:30 05/21/17 13:30 Labs: Abnormal Lab Results - Last 24 Hours (Table) 05/21/17 Range/Units 13:30 Carbon Dioxide 21 L (22-30) mmol/L BUN 20 H (7-17) mg/dL Glucose 119 H (74-99) mg/dL Amylase <30 L (30-110) U/L Assessment and Plan Assessment: #1 abdominal pain likely due to constipation with rectal dilation #2 common bile duct and pancreatic duct dilation. With no elevated LFTs. No right upper quadrant pain. Matthews's sign negative. #3 recent neck surgery #4 history of peripheral vascular disease and coronary artery disease #5 hypertension #6 hyperlipidemia #7 osteoarthritis Plan: Patient will be continued on IV hydration and patient was given MiraLAX and stool softeners and laxatives. We will continue to monitor closely and consider general surgery consultation for possible fecal impaction. We will continue the supportive care. Continue the home medications and pain management. Further recommendations based on the clinical course.
[2017-05-22] MEDS: BACLOFEN 10 MG TAB PO SCH ×3 (06:04→22:12)
[2017-05-22 07:49] LABS: Basophils # (A) 0.1 k/uL (0-0.2); Basophils % (A) 1 %; CH 28.9; Eosinophils # (A) 0.7 k/uL (0-0.7); Eosinophils % (A) 10 %; HCT 39.1 % (34.0-46.0); HDW 2.45; HGB 12.6 gm/dL (11.4-16.0); Luc # (Auto) 0.19; Luc % (Auto) 3; Lymphocytes # (A) 1.3 k/uL (1.0-4.8); Lymphocytes % (A) 19 %; MCH 29.2 pg (25.0-35.0); MCHC 32.3 g/dL (31.0-37.0); MCV 90.6 fL (80.0-100.0); Mean Platelet Volume 7.4; Monocytes # (A) 0.5 k/uL (0-1.0); Monocytes % (A) 7 %; Neutrophils # (A) 4.3 k/uL (1.3-7.7); Neutrophils % (A) 62 %; RBC 4.32 m/uL (3.80-5.40); RDW 14.5 % (11.5-15.5); WBC 6.9 k/uL (3.8-10.6); WBC (Perox) 7.52
[2017-05-22] MEDS: PANTOPRAZOLE 40 MG/10 ML VIAL IV SCH (07:55)
[2017-05-22] MEDS: LISINOPRIL 10 MG TAB PO SCH (07:55)
[2017-05-22] MEDS: ISOSORBIDE DINITRATE 20 MG TAB PO SCH ×2 (07:55→16:39)
[2017-05-22] MEDS: METOPROLOL TARTRATE 25 MG TAB PO SCH ×2 (07:55→16:39)
[2017-05-22] MEDS: GABAPENTIN 100 MG CAP PO SCH ×3 (07:55→22:12)
[2017-05-22] MEDS: amLODIPine 5 MG TAB PO SCH (07:56)
[2017-05-22] MEDS: CLOPIDOGREL 75 MG TAB PO SCH (07:56)
[2017-05-22] MEDS: traMADol 50 MG TAB PO PRN ×3 (08:05→22:11)
[2017-05-22 08:17] LABS: Anion Gap 10 mmol/L; Blood Urea Nitrogen 17 mg/dL (7-17); Calcium 9.4 mg/dL (8.4-10.2); Carbon Dioxide 22 mmol/L (22-30); Chloride 106 mmol/L (98-107); Glucose 98 mg/dL (74-99); Non-African American GFR(MDRD) >60 (>60 ml/min/1.73 sqM); Potassium 4.3 mmol/L (3.5-5.1); Sodium 138 mmol/L (137-145)
[2017-05-22] MEDS: BUDESONIDE 0.5 MG/2 ML NEBU INHALATION SCH ×2 (08:26→20:22)
[2017-05-22] MEDS: IPRATROPIUM-ALBUTEROL 3 ML NEB INHALATION SCH ×4 (08:26→20:22)
[2017-05-22] MEDS: PSYLLIUM HUSK 100% 6 GM PACKET PO SCH (08:38)
[2017-05-22] MEDS: POLYETHYLENE GLYCOL 3350 17 GM POWD.PACK PO SCH (08:38)
[2017-05-22] MEDS: DOCUSATE 100 MG CAP PO SCH ×2 (08:38→22:12)
[2017-05-22] MEDS: SODIUM CHLORIDE 0.9% 1,000 ML IV SCH ×2 (08:59→22:28)
[2017-05-22] MEDS: ACETAMINOPHEN TAB 325 MG TAB PO PRN (09:48)
--- NOTE | 2017-05-22 10:59 | P.PN ---
Subjective complains of of persistent abdominal pain. Patient states she's had unintentional weight loss initial computed tomography scan shows increase in abdominal aneurysm. Also left adrenal gland nodule. Also dilation of common bile duct and pancreatic duct. Requested consultation with Dr. Garcia and Dr. Mason Objective - Vital Signs Vital signs: Vital Signs Temp 97.0 F L 05/22/17 07:00 Pulse 64 05/22/17 08:39 Resp 18 05/22/17 07:00 BP 104/71 05/22/17 07:00 Pulse Ox 95 05/22/17 07:00 Intake & Output 05/21/17 05/22/17 05/22/17 18:59 06:59 18:59 Weight 48.081 kg Other: Voiding Method Bedside Commode Bedside Commode Bedside Commode # Voids 1 1 # Bowel Movements 1 1 - Constitutional General appearance: Present: mild distress, thin - EENT Eyes: Present: PERRLA Ears: bilateral: normal - Neck Neck: Present: normal ROM - Respiratory Respiratory: bilateral: CTA - Cardiovascular Rhythm: regular - Gastrointestinal Gastrointestinal Comment(s): Abdominal bruit noted mid abdomen General gastrointestinal: Present: soft - Integumentary Integumentary: Present: normal - Neurologic Neurologic: Present: CNII-XII intact - Musculoskeletal Musculoskeletal: Present: generalized weakness - Psychiatric Psychiatric: Present: A&O x's 3, appropriate affect, intact judgment & insight - Labs CBC & Chem 7: 05/22/17 07:33 05/22/17 07:33 Labs: Abnormal Lab Results - Last 24 Hours (Table) 05/21/17 Range/Units 13:30 Carbon Dioxide 21 L (22-30) mmol/L BUN 20 H (7-17) mg/dL Glucose 119 H (74-99) mg/dL Amylase <30 L (30-110) U/L - Imaging and Cardiology CT scan - abdomen: report reviewed Assessment and Plan Plan: assessment Abdominal pain and constipation Abdominal aneurysm Dilated bile and pancreatic ducts Adrenal mass History of hypertension Hyperlipidemia History of CABG Peripheral vascular disease with bypass Plan Consultation with Dr. Garcia regarding increasing abdominal aneurysm GI consulted for abdominal pain dilated bile and pancreatic duct
--- NOTE | 2017-05-22 13:46 | CONS ---
CONSULTATION This is a 72-year-old female, known to me from the past. Patient has history of hypertension, hyperlipidemia, coronary artery disease, history of fem-fem crossover bypass graft in the past. The patient has a small infrarenal abdominal aortic aneurysm. Patient came with to the emergency room with history of abdominal pain and discomfort and distention and she has been admitted. Patient had an x-ray of the abdomen which was nonspecific. The CT scan showed patient has a small infrarenal abdominal aortic aneurysm and patient has dilatation of the biliary duct and pancreatic duct, dilatation and patency of the fem-fem bypass graft. MEDICAL HISTORY: History of asthma, history of coronary artery disease, history of hyperlipidemia, history of hypertension, history of osteoarthritis and patient has history of coronary artery bypass graft in the past. EXAMINATION: Patient was seen in her room. NECK: Supple. No bruit appreciated. CHEST: Clear to auscultation. ABDOMEN: Soft, nontender. Femorals are palpable. Posterior tibials and dorsalis pedis by the Doppler. The patient had a CT of the abdomen which showed a 3 x 3 x 5 cm length abdominal aortic aneurysm. No endo leak. The patient had a fem-fem crossover bypass graft which is patent. At this point, the patient has a very small abdominal aortic aneurysm and graft is patent. We will follow with you. The patient has been seen by the Dr. Mason for further evaluation. We will watch her very closely. At this point, no surgical intervention needed from a vascular point of view. Thank you very much. MMODL / IJN: [id number] /
[2017-05-22] MEDS: ASPIRIN 81 MG PO SCH (16:39)
[2017-05-22] MEDS: FERROUS SULFATE 325 MG TAB PO SCH (16:39)
[2017-05-23] MEDS: BACLOFEN 10 MG TAB PO SCH ×3 (05:51→21:55)
[2017-05-23] MEDS: traMADol 50 MG TAB PO PRN ×3 (05:58→21:55)
[2017-05-23] MEDS: IPRATROPIUM-ALBUTEROL 3 ML NEB INHALATION SCH ×4 (07:49→20:56)
[2017-05-23] MEDS: BUDESONIDE 0.5 MG/2 ML NEBU INHALATION SCH ×2 (07:49→20:56)
[2017-05-23] MEDS: POLYETHYLENE GLYCOL 3350 17 GM POWD.PACK PO SCH (08:36)
[2017-05-23] MEDS: METOPROLOL TARTRATE 25 MG TAB PO SCH ×2 (08:36→17:15)
[2017-05-23] MEDS: PSYLLIUM HUSK 100% 6 GM PACKET PO SCH (08:36)
[2017-05-23] MEDS: PANTOPRAZOLE 40 MG/10 ML VIAL IV SCH (08:36)
[2017-05-23] MEDS: GABAPENTIN 100 MG CAP PO SCH ×3 (08:37→21:56)
[2017-05-23] MEDS: LISINOPRIL 10 MG TAB PO SCH (08:37)
[2017-05-23] MEDS: ISOSORBIDE DINITRATE 20 MG TAB PO SCH ×3 (08:37→17:37)
[2017-05-23] MEDS: DOCUSATE 100 MG CAP PO SCH (08:37)
[2017-05-23] MEDS: amLODIPine 5 MG TAB PO SCH (08:37)
[2017-05-23] MEDS: CLOPIDOGREL 75 MG TAB PO SCH (08:37)
[2017-05-23] MEDS: ACETAMINOPHEN TAB 325 MG TAB PO PRN (09:43)
--- NOTE | 2017-05-23 10:49 | P.PN ---
Subjective Principal diagnosis: Patient resting in bed complains of diarrhea stool this morning. Patient had consultation with Dr. Garcia regarding aneurysm and peripheral vascular disease states patient stable. Had consultation with gastroenterology they will investigate bile duct and pancreatic duct dilatation Objective - Vital Signs Vital signs: Vital Signs Temp 97.6 F 05/23/17 07:00 Pulse 64 05/23/17 08:06 Resp 16 05/23/17 07:00 BP 137/65 05/23/17 07:00 Pulse Ox 96 05/23/17 07:53 Intake & Output 05/22/17 05/23/17 05/23/17 18:59 06:59 18:59 Intake Total 480 Balance 480 Intake: Intake, IV Titration 480 Amount Sodium Chloride 0.9% 1, 480 000 ml @ 60 mls/hr IV . [id number] [facility] Rx#:[id number] Other: Voiding Method Bedside Commode Bedside Commode # Voids 1 2 # Bowel Movements 1 - Constitutional General appearance: Present: mild distress, thin - EENT Eyes: Present: PERRLA Ears: bilateral: normal - Neck Neck: Present: normal ROM - Respiratory Respiratory: bilateral: CTA - Cardiovascular Rhythm: regular - Gastrointestinal Gastrointestinal Comment(s): Abdominal bruit noted of low mid abdomen General gastrointestinal: Present: soft - Integumentary Integumentary: Present: normal - Neurologic Neurologic: Present: CNII-XII intact - Musculoskeletal Musculoskeletal: Present: generalized weakness - Psychiatric Psychiatric: Present: A&O x's 3, appropriate affect, intact judgment & insight - Labs CBC & Chem 7: 05/22/17 07:33 05/22/17 07:33 - Imaging and Cardiology CT scan - abdomen: report reviewed Assessment and Plan Assessment: Assessment Abdominal pain with dilated bile and pancreatic duct Adrenal mass Abdominal aneurysm Peripheral vascular disease with history of bypass Hypertension Hyperlipidemia Constipation Coronary artery disease with history of CABG Plan Continue consultation with gastroenterology we'll attempt to set up MRI Continue consultation with Dr. Garcia regarding aneurysm
--- NOTE | 2017-05-23 12:09 | P.CONS ---
History of Present Illness - Reason for Consult Consult date: 05/23/17 Abdominal pain dilated bile and pancreatic duct Requesting physician: Regan Constantino - History of Present Illness 72-year-old female admitted with mid abdominal burning pain distention for several days with constipation. Denies fever chills hematemesis hematochezia melena. She has a history of chronic pain home medications include but not limited to oxycodone, Robaxin, aspirin and baclofen. Colonoscopy 1-[address] Quintana; unremarkable to her memory. 7 kg weight loss last 6-9 months. No emesis no heartburn. Consultation requested for abdominal pain and dilation bile/pancreatic duct. CT abdomen and pelvis with contrast reported no intrahepatic biliary ductal dilatation. Hepatic parenchyma without lesion. Gallbladder elongated without fluid. Common bile duct 0.8 cm. Prominence of pancreatic duct measuring up to 4 mm at the pancreatic head. No discrete pancreatic mass. Distention of rectum with moderate stool retention 7.4 cm. Infrarenal abdominal aortic aneurysm with patent aortoiliac endograft. Evaluated by vascular surgery; no surgical plans at this time. 2 large BMS x 24 hours feels slightly better. White count 6.9-7.7. Hemoglobin 12.6-12.9. Platelets 337. LFTs normal. Lipase 31. Amylase less than 30. Review of Systems Constitutional: Denies fever, chills, sweats, weight gain, or loss. HEENT: Negative for migraines, blurred vision or loss, earaches, drainage, tinnitus, oral mucosal lesions, dysphagia, or odynophagia. CARDIAC: CAD. Hyperlipidemia. Hypertension. Negative for chest pain, arrhythmias, or palpitation. RESPIRATORY: Asthma. Negative for shortness of breath, hemoptysis, cough, or sputum production. GI: See HPI for pertinent findings. : Negative for hematuria, urgency, frequency, polyuria, or dysuria. GYNc: Denies possibility of . Negative vaginal discharge. MUSCULOSKELETAL: Chronic back pain.. NEUROLOGIC: Negative for stroke or TIA. ENDOCRINE: Negative for thyroid problems. SKIN: Negative for rash or itching. PSYCHIATRIC: Anxiety. Past Medical History Past Medical History: Asthma, Coronary Artery Disease (CAD), Hyperlipidemia, Hypertension, Osteoarthritis (OA), Vascular Disorder Additional Past Medical History / Comment(s): STATES HEAD INJURY R/T A FALL, OSTEOPOROSIS, CHRONIC BACK PAIN, PAD, STATES USES A WHEELCHAIR MOST OF TIME, states has edema in both lower extrem. History of Any Multi-Drug Resistant Organisms: None Reported Past Surgical History: Coronary Bypass/CABG Additional Past Surgical History / Comment(s): CYST REMOVED FROM FINGER, FEM/FEM , SPINAL FUSION NECK, COURTNEY CATARACT SX, has a stent in R groin. stent in cartoid artery (right) Past Anesthesia/Blood Transfusion Reactions: No Reported Reaction Past Psychological History: Anxiety Smoking Status: Former smoker Past Alcohol Use History: None Reported Past Drug Use History: None Reported - Past Family History Sister(s) Family Medical History: Cancer Additional Family Medical History / Comment(s): 2 sisters with breast ca Father Family Medical History: Myocardial Infarction (MA) Additional Family Medical History / Comment(s): several mi's Mother History Unknown: Yes Family Medical History: No Reported History Additional Family Medical History / Comment(s): mom was healthdied from natural causes. Medications and Allergies Home Medications Medication Instructions Recorded Confirmed Type Ipratropium-Albuterol Nebulize 3 ml INHALATION RT-QID@,,,09/14/1605/21 History [Duoneb 0.5 mg-3 mg/3 ml Soln] amLODIPine [Norvasc] 5 mg PO DAILY@0800 09/14/16 05/21/17 History Acetaminophen Tab [Tylenol Tab] 500 mg PO Q8H PRN 05/21/17 05/21/17 History Aspirin 81 mg PO DAILY@1700 05/21/17 05/21/17 History Baclofen 10 mg PO TID@0600,1400,2100 05/21/17 05/21/17 History Bisacodyl [Dulcolax] 10 mg RECTAL DAILY PRN 05/21/17 05/21/17 History Budesonide [Pulmicort] 0.5 mg INHALATION RT-BID 05/21/17 05/21/17 History Clopidogrel [Plavix] 75 mg PO DAILY@0800 05/21/17 05/21/17 History Docusate [Colace] 100 mg PO DAILY@0800 05/21/17 05/21/17 History Docusate [Colace] 200 mg PO HS@2100 05/21/17 05/21/17 History Ferrous Sulfate [Feosol] 325 mg PO DAILY@1700 05/21/17 05/21/17 History Gabapentin [Neurontin] 200 mg PO TID@0800,1400,2100 05/21/17 05/21/17 History Isosorbide Dinitrate [Isordil] 20 mg PO BID@0800,1700 05/21/17 05/21/17 History Lidocaine 5% Patch [Lidoderm] 1 patch TOPICAL DAILY 05/21/17 05/21/17 History Lisinopril [Zestril] 10 mg PO DAILY@0800 05/21/17 05/21/17 History Magnesium Hydroxide [Milk of 2,400 mg PO DAILY PRN 05/21/17 05/21/17 History Magnesia] Methocarbamol [Robaxin-750] 750 mg PO Q6H PRN 05/21/17 05/21/17 History Metoprolol Tartrate [Lopressor] 25 mg PO BID@0800,1700 05/21/17 05/21/17 History Na Phos,M-B/Na Phos,Di-Ba [Fleet 133 ml RECTAL DAILY PRN 05/21/17 05/21/17 History Adult] Nitroglycerin Sl Tabs [Nitrostat] 0.4 mg SUBLINGUAL Q5M PRN 05/21/17 05/21/17 History Ondansetron [Zofran] 4 mg PO Q8HR PRN 05/21/17 05/21/17 History Polyethylene Glycol 3350 [Miralax] 17 gm PO DAILY@0800 05/21/17 05/21/17 History Psyllium Husk (with Sugar) 6 gm PO DAILY@0800 05/21/17 05/21/17 History [Metamucil Powder] guaiFENesin [Diabetic Tussin Ex] 200 mg PO Q4H PRN 05/21/17 05/21/17 History oxyCODONE HCL [Oxyir] 10 mg PO Q3H PRN 05/21/17 05/21/17 History Allergies Allergy/AdvReac Type Severity Reaction Status Date / Time acetaminophen [From [place]] Allergy Unknown Verified 05/21/17 12:06 codeine Allergy Unknown Verified 05/21/17 12:06 egg Allergy Unknown Verified 11/10/16 19:24 hydrocodone [From [place]] Allergy Unknown Verified 05/21/17 12:06 hydromorphone [From Dilaudid] Allergy Unknown Verified 05/21/17 12:06 ibuprofen Allergy Rash/Hives Verified 11/10/16 19:24 shellfish derived [Shrimp] Allergy Rash/Hives Verified 11/10/16 19:24 tomato Allergy Unknown Verified 11/10/16 19:24 Physical Exam Vitals: Vital Signs Temp Pulse Pulse Resp BP Pulse Ox 05/23/17 08:06 64 05/23/17 07:53 68 96 05/23/17 07:00 97.6 F 62 16 137/65 95 05/22/17 21:10 97.3 F L 66 16 122/69 94 L 05/22/17 20:34 64 05/22/17 20:22 60 05/22/17 17:32 60 05/22/17 17:20 92 L 05/22/17 17:16 62 05/22/17 15:00 97.6 F 60 18 126/58 96 05/22/17 12:34 65 05/22/17 12:23 65 05/22/17 08:39 64 Intake and Output 05/22/17 05/23/17 05/23/17 22:59 06:59 14:59 Intake Total 480 Balance 480 Intake: Intake, IV Titration 480 Amount Sodium Chloride 0.9% 1, 480 000 ml @ 60 mls/hr IV . [id number] [facility] Rx#:[id number] Other: Voiding Method Bedside Commode Bedside Commode # Voids 0 2 General appearance: The patient is alert, oriented, in no acute distress. HET: Head is normocephalic and atraumatic. Pupils are equal and reactive. Oropharynx is clear without lesions. Neck: Supple without lymphadenopathy. Trachea midline. Heart: S1 S2. Regular rate and rhythm. Lungs: No crackles or wheezes are heard. Abdomen: Soft, very mild tenderness midabdomen, nondistended with bowel sounds. No peritoneal signs. No palpable organomegaly or masses. Extremities: Normal skin color and turgor. No cyanosis, rash, ulceration, clubbing, or edema. Radial and pedal pulses are 2/4 bilaterally. Neurological: No focal deficits. Strength and sensation are grossly intact. Results CBC & Chem 7: 05/22/17 07:33 05/22/17 07:33 CT scan - abdomen: report reviewed (Dr. Mason) Assessment and Plan (1) Abdominal pain Narrative/Plan: 72-year-old female admitted with abdominal pain unclear etiology with unremarkable pancreatic and liver enzymes with CT imaging suggested of a mildly dilated common bile duct and pancreatic duct with no focal abnormality within the liver or gallbladder. No mentioning of cholelithiasis. Abdominal pain possible related to constipation. Current Visit: Yes Status: Acute Code(s): R10.9 - UNSPECIFIED ABDOMINAL PAIN SNOMED Code(s): 34605358 (2) Constipation Narrative/Plan: Fecal retention rectum per CT Current Visit: Yes Status: Acute Code(s): K59.00 - CONSTIPATION, UNSPECIFIED SNOMED Code(s): 34454112 (3) AAA (abdominal aortic aneurysm) Narrative/Plan: History of vascular surgery fem-fem crossover Current Visit: Yes Status: Acute Code(s): I71.4 - ABDOMINAL AORTIC ANEURYSM , WITHOUT RUPTURE SNOMED Code(s): 711300797 Plan: 1. Enemas/laxatives as needed for constipation. Check lactic acid and amylase. 2. Recommend MRCP for further evaluation of biliary tree pancreatic duct however patient has metallic hardware in back and recent carotid intervention; may need to pursue as an outpatient with different magnet concentration/MRI machine. ERCP not indicated at this time secondary to normal liver function tests. 3. Will follow. Thank you for this kind referral and the opportunity to participate in the care of your patient. This consultation was discussed with Dr. Mason. The impression and plan of care have been directed as dictated.
[2017-05-23] MEDS: FERROUS SULFATE 325 MG TAB PO SCH ×2 (17:15→17:37)
[2017-05-23] MEDS: ASPIRIN 81 MG PO SCH ×2 (17:15→17:37)
[2017-05-23] MEDS: SODIUM CHLORIDE 0.9% 1,000 ML IV SCH (18:02)
[2017-05-23] MEDS: SENNOSIDES-DOCUSATE SODIUM 1 EACH TAB PO SCH (21:56)
[2017-05-24] MEDS: BACLOFEN 10 MG TAB PO SCH ×3 (05:39→21:09)
[2017-05-24] MEDS: BUDESONIDE 0.5 MG/2 ML NEBU INHALATION SCH ×2 (07:56→18:56)
[2017-05-24] MEDS: IPRATROPIUM-ALBUTEROL 3 ML NEB INHALATION SCH ×4 (07:56→18:56)
[2017-05-24] MEDS: traMADol 50 MG TAB PO PRN ×2 (08:46→15:02)
[2017-05-24] MEDS: amLODIPine 5 MG TAB PO SCH (08:46)
[2017-05-24] MEDS: LISINOPRIL 10 MG TAB PO SCH (08:46)
[2017-05-24] MEDS: PANTOPRAZOLE 40 MG/10 ML VIAL IV SCH (08:46)
[2017-05-24] MEDS: CLOPIDOGREL 75 MG TAB PO SCH (08:46)
[2017-05-24] MEDS: ISOSORBIDE DINITRATE 20 MG TAB PO SCH ×2 (08:47→17:43)
[2017-05-24] MEDS: METOPROLOL TARTRATE 25 MG TAB PO SCH ×2 (08:47→17:43)
[2017-05-24] MEDS: SENNOSIDES-DOCUSATE SODIUM 1 EACH TAB PO SCH ×2 (11:12→21:09)
[2017-05-24] MEDS: GABAPENTIN 100 MG CAP PO SCH ×3 (11:12→21:09)
[2017-05-24] MEDS: PSYLLIUM HUSK 100% 6 GM PACKET PO SCH (11:12)
[2017-05-24] MEDS: POLYETHYLENE GLYCOL 3350 17 GM POWD.PACK PO SCH (11:12)
--- NOTE | 2017-05-24 11:31 | P.PN ---
Subjective Progress Note Date: 05/24/17 Principal diagnosis: abdominal pain dilated pancreatic hepatic duct Awaiting MRCP. Feels better. BM last night. Afebrile. No abdominal pain. Objective - Vital Signs Vital signs: Vital Signs Temp 97.4 F L 05/24/17 07:00 Pulse 72 05/24/17 08:12 Resp 18 05/24/17 08:00 BP 136/60 05/24/17 07:00 Pulse Ox 93 L 05/24/17 07:58 Intake & Output 05/23/17 05/24/17 05/24/17 18:59 06:59 18:59 Intake Total 580 Balance 580 Intake: Intake, IV Titration 480 Amount Sodium Chloride 0.9% 1, 480 000 ml @ 60 mls/hr IV . [id number] ON LICENSE OF [facility] Rx#:[id number] Oral 100 Other: Voiding Method Bedside Commode Bedside Commode Bedside Commode # Voids 2 2 # Bowel Movements 1 - Exam General appearance: The patient is alert, oriented, in no acute distress. HET: Head is normocephalic and atraumatic. Pupils are equal and reactive. Oropharynx is clear without lesions. Neck: Supple without lymphadenopathy. Trachea midline. Heart: S1 S2. Regular rate and rhythm. Lungs: No crackles or wheezes are heard. Abdomen: Soft, nontender, nondistended with bowel sounds. No peritoneal signs. No palpable organomegaly or masses. Extremities: Normal skin color and turgor. No cyanosis, rash, ulceration, clubbing, or edema. Radial and pedal pulses are 2/4 bilaterally. Neurological: No focal deficits. Strength and sensation are grossly intact. - Labs CBC & Chem 7: 05/22/17 07:33 05/22/17 07:33 Labs: Abnormal Lab Results - Last 24 Hours (Table) 05/23/17 Range/Units 14:22 Amylase <30 L (30-110) U/L Assessment and Plan (1) Abdominal pain Narrative/Plan: 72-year-old female admitted with abdominal pain unclear etiology with unremarkable pancreatic and liver enzymes with CT imaging suggested of a mildly dilated common bile duct and pancreatic duct with no focal abnormality within the liver or gallbladder. No mentioning of cholelithiasis. Abdominal pain possibly related to constipation Current Visit: Yes Status: Acute Code(s): R10.9 - UNSPECIFIED ABDOMINAL PAIN SNOMED Code(s): 03288974 (2) Constipation Narrative/Plan: Fecal retention rectum per CT Current Visit: Yes Status: Acute Code(s): K59.00 - CONSTIPATION, UNSPECIFIED SNOMED Code(s): 78722913 (3) AAA (abdominal aortic aneurysm) Narrative/Plan: History of vascular surgery fem-fem crossover Current Visit: Yes Status: Acute Code(s): I71.4 - ABDOMINAL AORTIC ANEURYSM , WITHOUT RUPTURE SNOMED Code(s): 535164578 Plan: 1. Continue laxatives as needed for constipation. Lactic acid and amylase reviewed unremarkable. 2. Await MRI. Discharge per medicine after MRI is completed. Return to GI office in 2-3 weeks for reevaluation. Assessment and plan a care discussed with Dr. Mason
--- NOTE | 2017-05-24 12:00 | P.PN ---
Subjective Principal diagnosis: Reason sitting in chair at bedside continues to complain of abdominal pain. Has been evaluated by Dr. Garcia for aneurysm stated that she was stable. Patient also being evaluated for gastroenterology for abdominal pain dilated pancreatic and bile duct. Awaiting MRI study Objective - Vital Signs Vital signs: Vital Signs Temp 97.4 F L 05/24/17 07:00 Pulse 76 05/24/17 11:48 Resp 18 05/24/17 08:00 BP 136/60 05/24/17 07:00 Pulse Ox 93 L 05/24/17 07:58 Intake & Output 05/23/17 05/24/17 05/24/17 18:59 06:59 18:59 Intake Total 580 Balance 580 Intake: Intake, IV Titration 480 Amount Sodium Chloride 0.9% 1, 480 000 ml @ 60 mls/hr IV . [id number] [facility] Rx#:[id number] Oral 100 Other: Voiding Method Bedside Commode Bedside Commode Bedside Commode # Voids 2 2 # Bowel Movements 1 - Constitutional General appearance: Present: mild distress, thin - EENT Eyes: Present: PERRLA Ears: bilateral: normal - Neck Neck: Present: normal ROM - Respiratory Respiratory: bilateral: CTA - Cardiovascular Rhythm: regular - Gastrointestinal General gastrointestinal: Present: soft - Integumentary Integumentary: Present: normal - Neurologic Neurologic: Present: CNII-XII intact - Musculoskeletal Musculoskeletal: Present: generalized weakness - Psychiatric Psychiatric: Present: A&O x's 3, appropriate affect, intact judgment & insight - Labs CBC & Chem 7: 05/22/17 07:33 05/22/17 07:33 Labs: Abnormal Lab Results - Last 24 Hours (Table) 05/23/17 Range/Units 14:22 Amylase <30 L (30-110) U/L Assessment and Plan Plan: Assessment abdominal pain and constipation Adrenal mass Dilated bile and pancreatic ducts Abdominal aneurysm Peripheral vascular disease with history of bypass History of hypertension Hyperlipidemia Plan Awaiting MRI of abdomen will continue care with Dr. Garcia and gastroenterology
[2017-05-24] MEDS: FERROUS SULFATE 325 MG TAB PO SCH (17:43)
[2017-05-24] MEDS: ASPIRIN 81 MG PO SCH (17:43)
[2017-05-25] MEDS: BACLOFEN 10 MG TAB PO SCH ×2 (05:48→14:11)
[2017-05-25] MEDS: SODIUM CHLORIDE 0.9% 1,000 ML IV SCH ×2 (05:48→05:50)
--- NOTE | 2017-05-25 08:39 | MR ---
EXAMINATION TYPE: MR MRCP DATE OF EXAM: 05/25/2017 COMPARISON: CT of the abdomen and pelvis dated 05/21/2017 HISTORY: common bile duct dilation, pancreatic duct dilation Standard multiplanar, multisequence MRI departmental protocol Multiplanar, multisequence images of the abdomen were acquired. Three-dimensional [id number] imag es of the biliary tree were also submitted. FINDINGS: The gallbladder is of normal caliber. No filling defects are identified to suggest cholelithiasis. Th ere is no evidence for gallbladder wall thickening. Common bile duct measures 5.4 mm which is within normal limits. Pancreatic duct is mildly prominent at 3.2 mm. I do not see evidence for filling defec t however there is luminal narrowing at the level of the ampulla of Vater. No distinct pancreatic mas s is identified. Intrahepatic biliary tree is believed to be within normal limits. No evidence of intrahepatic lesion. Lesion of decreased signal anterior lip of the mid pole of the sp eddy measures 8.6 mm and may reflect a small hemangioma. 2.0 x 1.3 cm. LEFT adrenal nodule is noted which demonstrates slightly decreased signal on the out of phase imaging may reflect an adrenal adenoma. Six-month follow-up is advised. Right adrenal gland is unremarkable. The kidneys are free of hydronephrosis or mass lesion. Infiltrate renal abdominal aortic aneurysm measuring approximately 3.0 x 3.1 cm. Postoperative changes lumbar spine. IMPRESSION: 1. Common bile duct is felt to be of normal caliber for the patient's age group. Pancreatic duct is m ildly prominent. Luminal narrowing is noted at the level of the ampulla of Vater without filling defe ct or mass. 2. Nonspecific left adrenal nodule may reflect adenoma. Consider 6 month follow-up study.
[2017-05-25] MEDS: GABAPENTIN 100 MG CAP PO SCH ×2 (08:56→14:11)
[2017-05-25] MEDS: amLODIPine 5 MG TAB PO SCH (08:56)
[2017-05-25] MEDS: CLOPIDOGREL 75 MG TAB PO SCH (08:56)
[2017-05-25] MEDS: ISOSORBIDE DINITRATE 20 MG TAB PO SCH (08:57)
[2017-05-25] MEDS: LISINOPRIL 10 MG TAB PO SCH (08:57)
[2017-05-25] MEDS: METOPROLOL TARTRATE 25 MG TAB PO SCH (08:58)
[2017-05-25] MEDS: SENNOSIDES-DOCUSATE SODIUM 1 EACH TAB PO SCH (08:59)
[2017-05-25] MEDS: POLYETHYLENE GLYCOL 3350 17 GM POWD.PACK PO SCH (08:59)
[2017-05-25] MEDS: PSYLLIUM HUSK 100% 6 GM PACKET PO SCH (08:59)
[2017-05-25] MEDS ORDERED: PANTOPRAZOLE 40 MG TABLET PO SCH (09:00)
[2017-05-25] MEDS: traMADol 50 MG TAB PO PRN ×2 (09:00→16:00)
[2017-05-25] MEDS: IPRATROPIUM-ALBUTEROL 3 ML NEB INHALATION SCH ×2 (09:05→12:34)
[2017-05-25] MEDS: BUDESONIDE 0.5 MG/2 ML NEBU INHALATION SCH (09:05)
[2017-05-25 09:18] VITALS: BP 179/87; RESP 24; TEMP 97.8
--- NOTE | 2017-05-25 12:35 | P.PN ---
Subjective Progress Note Date: 05/25/17 Principal diagnosis: abdominal pain dilated pancreatic hepatic duct MRCP completed, bile duct normal caliber. Pancreatic duct mildly prominent. No filling defect or mass. Feels better. Afebrile. No abdominal pain. Objective - Vital Signs Vital signs: Vital Signs Temp 97.8 F 05/25/17 07:00 Pulse 76 05/25/17 09:28 Resp 24 05/25/17 08:00 BP 179/87 05/25/17 07:00 Pulse Ox 96 05/25/17 07:00 Intake & Output 05/24/17 05/25/17 05/25/17 18:59 06:59 18:59 Intake Total 420 360 Balance 420 360 Weight 48.081 kg Intake: IV 360 Sodium Chloride 0.9% 1, 360 000 ml @ 60 mls/hr IV . [id number] [facility] Rx#:[id number] Intake, IV Titration 420 Amount Sodium Chloride 0.9% 1, 420 000 ml @ 60 mls/hr IV . [id number] Rx#:[id number] Other: Voiding Method Bedside Commode Bedside Commode Bedside Commode # Voids 2 3 - Exam General appearance: The patient is alert, oriented, in no acute distress. HET: Head is normocephalic and atraumatic. Pupils are equal and reactive. Oropharynx is clear without lesions. Neck: Supple without lymphadenopathy. Trachea midline. Heart: S1 S2. Regular rate and rhythm. Lungs: No crackles or wheezes are heard. Abdomen: Soft, nontender, nondistended with bowel sounds. No peritoneal signs. No palpable organomegaly or masses. Extremities: Normal skin color and turgor. No cyanosis, rash, ulceration, clubbing, or edema. Radial and pedal pulses are 2/4 bilaterally. Neurological: No focal deficits. Strength and sensation are grossly intact. - Labs CBC & Chem 7: 05/22/17 07:33 05/22/17 07:33 Assessment and Plan (1) Abdominal pain Narrative/Plan: 72-year-old female admitted with abdominal pain unclear etiology with unremarkable pancreatic and liver enzymes with CT imaging suggested of a mildly dilated common bile duct and pancreatic duct with no focal abnormality within the liver or gallbladder. Follow-up MRCP reported normal caliber common bile duct with mildly dilated pancreatic duct with no focal lesion filling defect or mass. No mentioning of cholelithiasis. Abdominal pain possible related to constipation. Current Visit: Yes Status: Acute Code(s): R10.9 - UNSPECIFIED ABDOMINAL PAIN SNOMED Code(s): 16763235 (2) Constipation Narrative/Plan: Fecal retention rectum per CT Current Visit: Yes Status: Acute Code(s): K59.00 - CONSTIPATION, UNSPECIFIED SNOMED Code(s): 24711864 (3) AAA (abdominal aortic aneurysm) Narrative/Plan: History of vascular surgery fem-fem crossover Current Visit: Yes Status: Acute Code(s): I71.4 - ABDOMINAL AORTIC ANEURYSM , WITHOUT RUPTURE SNOMED Code(s): 658469068 Plan: 1. Discharge per medicine. Consider six-month follow-up study per MRCP imaging. 2. RTO 2-3 weeks for reevlauation. 3. Daily stool softeners. Avoid constipation. Assessment and plan of care discussed with Dr. Schwarz
[2017-05-25 12:37] VITALS: PULSE 76
--- NOTE | 2017-05-25 15:15 | P.DS ---
Providers Date of admission: 05/21/17 15:33 Attending physician: Regan Constantino Consults: 05/22/17 10:51 Consult Physician Urgent Consulting Provider: Giovanni Garcia Consult Reason/Comments: abd aneurysm Do you want consulting provider notified?: Yes Primary care physician: Regan Constantino [facility] Course: This 72-year-old woman with a past medical history multiple medical problems and followed by Dr. Nereyda Constantino was admitted with abdominal pain and constipation. Patient treated symptomatically. Improved significantly. Patient also had a significant DJD hip pain and back pain also. Patient was treated again symptomatically improved significantly. Patient be discharged in a stable condition with guarded prognosis with further plans to follow up in the outpatient setting in the [facility] for rehab. Total time taken 35 minutes. On exam vitals stable. Cardio S1 and S2 normal. Respirator system clear to auscultation. Abdomen soft nontender. Nervous system mild diffuse weakness. Final diagnosis 1. Acute abdominal pain possibly secondary to constipation. 2. Diffuse aches and pains possible acute DJD. 3. adrenal mass. 4. Dilated pancreatic in the biliary tract without with some stricture with no mass in the MRCP. 4. Abdominal aneurysm. 5. Peripheral vascular disease. 6. Hypertension. 7. Hyperlipidemia. Patient Condition at Discharge: Fair Plan - Discharge Summary Discharge Rx Participant: No New Discharge Prescriptions: New Pantoprazole [Protonix] 40 mg PO DAILY tablet.dr Bass-Docusate Sodium [Senokot-S] 2 each PO BID tab traMADol HCl [Ultram] 50 mg PO Q6H PRN #20 tab PRN Reason: Moderate Pain Continue amLODIPine [Norvasc] 5 mg PO DAILY@0800 Ipratropium-Albuterol Nebulize [Duoneb 0.5 mg-3 mg/3 ml Soln] 3 ml INHALATION RT-QID@08,12,17,21 Nitroglycerin Sl Tabs [Nitrostat] 0.4 mg SUBLINGUAL Q5M PRN PRN Reason: Angina guaiFENesin [Diabetic Tussin Ex] 200 mg PO Q4H PRN PRN Reason: Cough Metoprolol Tartrate [Lopressor] 25 mg PO BID@0800,1700 Magnesium Hydroxide [Milk of Magnesia] 2,400 mg PO DAILY PRN PRN Reason: Constipation Na Phos,M-B/Na Phos,Di-Ba [Fleet Adult] 133 ml RECTAL DAILY PRN PRN Reason: Constipation Bisacodyl [Dulcolax] 10 mg RECTAL DAILY PRN PRN Reason: Constipation Gabapentin [Neurontin] 200 mg PO TID@0800,1400,2100 Budesonide [Pulmicort] 0.5 mg INHALATION RT-BID Baclofen 10 mg PO TID@0600,1400,2100 Isosorbide Dinitrate [Isordil] 20 mg PO BID@0800,1700 Clopidogrel [Plavix] 75 mg PO DAILY@0800 Polyethylene Glycol 3350 [Miralax] 17 gm PO DAILY@0800 Psyllium Husk (with Sugar) [Metamucil Powder] 6 gm PO DAILY@0800 Lisinopril [Zestril] 10 mg PO DAILY@0800 Lidocaine 5% Patch [Lidoderm 5% Patch] 1 patch TOPICAL DAILY Ferrous Sulfate [Iron (65 MG Elemental)] 325 mg PO DAILY@1700 Docusate [Colace] 200 mg PO HS@2100 Docusate [Colace] 100 mg PO DAILY@0800 Aspirin 81 mg PO DAILY@1700 Ondansetron [Zofran] 4 mg PO Q8HR PRN PRN Reason: Nausea Acetaminophen Tab [Tylenol] 500 mg PO Q8H PRN PRN Reason: Pain Discontinued Methocarbamol [Robaxin-750] 750 mg PO Q6H PRN PRN Reason: Muscle Spasm oxyCODONE HCL [Oxyir] 10 mg PO Q3H PRN PRN Reason: Moderate Pain Discharge Medication List Ipratropium-Albuterol Nebulize [Duoneb 0.5 mg-3 mg/3 ml Soln] 3 ml INHALATION RT -QID@08,12,17,09/14/16 [History] amLODIPine [Norvasc] 5 mg PO DAILY@0800 09/14/16 [History] Acetaminophen Tab [Tylenol] 500 mg PO Q8H PRN 05/21/17 [History] Aspirin 81 mg PO DAILY@1700 05/21/17 [History] Baclofen 10 mg PO TID@0600,1400,2100 05/21/17 [History] Bisacodyl [Dulcolax] 10 mg RECTAL DAILY PRN 05/21/17 [History] Budesonide [Pulmicort] 0.5 mg INHALATION RT-BID 05/21/17 [History] Clopidogrel [Plavix] 75 mg PO DAILY@0800 05/21/17 [History] Docusate [Colace] 100 mg PO DAILY@0800 05/21/17 [History] Docusate [Colace] 200 mg PO HS@2100 05/21/17 [History] Ferrous Sulfate [Iron (65 MG Elemental)] 325 mg PO DAILY@1700 05/21/17 [History] Gabapentin [Neurontin] 200 mg PO TID@0800,1400,2100 05/21/17 [History] Isosorbide Dinitrate [Isordil] 20 mg PO BID@0800,1700 05/21/17 [History] Lidocaine 5% Patch [Lidoderm 5% Patch] 1 patch TOPICAL DAILY 05/21/17 [History] Lisinopril [Zestril] 10 mg PO DAILY@0800 05/21/17 [History] Magnesium Hydroxide [Milk of Magnesia] 2,400 mg PO DAILY PRN 05/21/17 [History] Metoprolol Tartrate [Lopressor] 25 mg PO BID@0800,1700 05/21/17 [History] Na Phos,M-B/Na Phos,Di-Ba [Fleet Adult] 133 ml RECTAL DAILY PRN 05/21/17 [ History] Nitroglycerin Sl Tabs [Nitrostat] 0.4 mg SUBLINGUAL Q5M PRN 05/21/17 [History] Ondansetron [Zofran] 4 mg PO Q8HR PRN 05/21/17 [History] Polyethylene Glycol 3350 [Miralax] 17 gm PO DAILY@0800 05/21/17 [History] Psyllium Husk (with Sugar) [Metamucil Powder] 6 gm PO DAILY@0800 05/21/17 [ History] guaiFENesin [Diabetic Tussin Ex] 200 mg PO Q4H PRN 05/21/17 [History] Pantoprazole [Protonix] 40 mg PO DAILY tablet. 05/25/17 [Rx] Sennosides-Docusate Sodium [Senokot-S] 2 each PO BID tab 05/25/17 [Rx] traMADol HCl [Ultram] 50 mg PO Q6H PRN #20 tab 05/25/17 [Rx] Follow up Appointment(s)/Referral(s): Regan Constantino MD [Primary Care Provider] - 1-2 days Bronson Mason MD [STAFF PHYSICIAN] - 3 Weeks Activity/Diet/Wound Care/Special Instructions: [place] Diet: Cardiac Activity: as tolerated cbc,bmp in 3 days Discharge Disposition: TRANSFER TO SNF/ECF
== END 2017-05-25 16:50 | DRG 392 ==
LOC: EC 11:58 → 5MS5E 15:33
PROVIDERS: ADMIT Family Medicine; ATTEND Family Medicine
DX: K59.00 Constipation, unspecified (principal); E27.8 Other specified disorders of adrenal gland; K86.89 Other specified diseases of pancreas; I10 Essential (primary) hypertension; I73.9 Peripheral vascular disease, unspecified; I25.10 Atherosclerotic heart disease of native coronary artery without angina pectoris; E78.5 Hyperlipidemia, unspecified; M81.0 Age-related osteoporosis without current pathological fracture; M16.10 Unilateral primary osteoarthritis, unspecified hip; M54.9 Dorsalgia, unspecified; I71.4 Abdominal aortic aneurysm, without rupture; J45.909 Unspecified asthma, uncomplicated; F41.9 Anxiety disorder, unspecified; Z88.6 Allergy status to analgesic agent; Z91.012 Allergy to eggs; Z91.013 Allergy to seafood; Z88.8 Allergy status to other drugs, medicaments and biological substances; Z91.018 Allergy to other foods; Z79.899 Other long term (current) drug therapy; Z79.82 Long term (current) use of aspirin; Z79.02 Long term (current) use of antithrombotics/antiplatelets; Z82.49 Family history of ischemic heart disease and other diseases of the circulatory system; Z80.3 Family history of malignant neoplasm of breast; Z87.891 Personal history of nicotine dependence; Z95.1 Presence of aortocoronary bypass graft; Z98.1 Arthrodesis status; Z98.41 Cataract extraction status, right eye; Z98.42 Cataract extraction status, left eye
CPT/HCPCS: 36415; 74000; 74177; 74181; 80048; 80053; 81003; 82150; 83605; 83690; 84484; 85025; 93005; 94640; 94760; 96360; 99285

== ENCOUNTER → 2017-08-01 | Outpatient (CLI) | payer MEDICARE, OTHER ==
--- NOTE | 2017-08-01 13:31 | FL ---
EXAMINATION TYPE: FL barium swallow w video DATE OF EXAM: 08/01/2017 COMPARISON: NONE HISTORY: Dysphasia TECHNIQUE: Fluoroscopy. FINDINGS: Fluoroscopic guidance was provided for the procedure performed in conjunction with the [facility] pathology department. Please see complete report forthcoming from the Speech Pathology departmen t. Various consistencies from thin liquid to solids were administered. Fluoroscopy time 1.17 minutes. Number of images: 0. There is some penetration with thin nectar thick liquids. No aspiration was evident. No significant pooling was observed in the vallecula. There was normal propulsion of the bolus. IMPRESSION: 1. Transient penetration without aspiration
== END | disposition home or self-care (01) ==
LOC: RADFLMAIN 11:22
PROVIDERS: ATTEND Psychiatry & Neurology Neurology
DX: R13.10 Dysphagia, unspecified (principal)
CPT/HCPCS: 74230

== ENCOUNTER → 2017-08-10 | Outpatient (CLI) | payer MEDICARE, OTHER ==
--- NOTE | 2017-08-11 12:31 | MR ---
EXAMINATION TYPE: MR brain/cspine wo/w DATE OF EXAM: 08/10/2017 COMPARISON: 06/19/2015 HISTORY: Brainstem Mass or Stroke / Compression / MS TECHNIQUE: Multiplanar, multisequence images of the brain and brainstem is performed without and with IV contras t, utilizing 5 mL intravenous Gadavist . FINDINGS: BRAIN: Diffusion weighted images demonstrate no evidence of a recent infarct or other diffusion abnor mality. There is no extra-axial fluid collection. Few T2/IR hyperintense foci are scattered througho ut the periventricular and subcortical white matter with the largest in the right frontal lobe in the precentral gyrus 3.4 mm. The ventricular system and cisternal spaces are symmetrically prominent com patible with age-related volume loss. The brain volume is age appropriate. Midline structures demonstrate normal morphology. The craniocervical junction appears within normal limits. Post contrast images demonstrate no abnormal enhancement. The dural venous sinuses appear pa tent. The globes are intact. Scant mucosal thickening is seen within the mastoid air cells. Paranasal sinuses are well aerated. CERVICAL SPINE: The cervical bodies maintain normal vertebral body heights and alignment in their visualized portions . There is suboptimal visualization of C4-C7 secondary to susceptibility artifact from anterior cervi ren fusion device placed in the interim. Cervical cord maintains normal signal exhibit punctate focus of T2 hyperintensity on sagittal image 7 thought to be related to susceptibility artifact. No abnorm al postcontrast enhancement is identified. C2-C3: A small central posterior disc osteophyte complex is seen without significant spinal canal ramesh nosis or neural foraminal narrowing. C3-C4: Mild facet arthropathy and uncovertebral hypertrophy creates mild left neural foraminal narrow ing is seen on the prior. No right neuroforaminal narrowing. Small posterior disc osteophyte complex resulting in mild spinal canal stenosis as there is narrowing of the ventral subarachnoid space. C4-C5: Left-sided uncovertebral hypertrophy creates mild left neural foraminal narrowing. Right neura l foramen and spinal canal patent. C5-C6: Small central posterior disc osteophyte complex creates mild spinal canal stenosis as there is narrowing of the ventral subarachnoid space. Mild uncovertebral hypertrophy and facet arthropathy cr eates mild bilateral neural foraminal narrowing. C6-C7: Uncovertebral hypertrophy and facet arthropathy creating mild bilateral neural foraminal narro wing. Broad-based disc osteophyte complex creates mild spinal canal stenosis as narrowing of the vent ral subarachnoid space is seen. C7-T1: Small central disc osteophyte complex creates narrowing of the subarachnoid space ventrally an d creates mild spinal canal stenosis. No neural foraminal narrowing. IMPRESSION: 1. No acute intracranial process. Specifically no evidence of brainstem mass, brainstem stroke, or ab normal intracranial enhancement. 2. Mild burden nonspecific white matter changes as seen on the prior exam of 2014, most commonly on t he basis of microangiopathy. 3. No abnormal postcontrast enhancement within the cervical spine. 4. Interval anterior cervical fusion device from C4 through C7. 5. Moderate degenerative disc disease throughout the cervical spine resulting in mild spinal canal st enosis at C3-C4, C5-C6, C6-C7 and C7-T1. Variable degrees of neural foraminal narrowing are described above.
== END | disposition home or self-care (01) ==
LOC: RADMRIMAIN 12:04
PROVIDERS: ATTEND Psychiatry & Neurology Neurology
DX: M48.03 Spinal stenosis, cervicothoracic region (principal); M99.71 Connective tissue and disc stenosis of intervertebral foramina of cervical region; M50.30 Other cervical disc degeneration, unspecified cervical region; R90.82 White matter disease, unspecified; Z98.1 Arthrodesis status; Z86.73 Personal history of transient ischemic attack (TIA), and cerebral infarction without residual deficits
CPT/HCPCS: 82565; 70553; 72156; 36415; A9581

== ENCOUNTER → 2017-08-15 | Outpatient (CLI) | payer MEDICARE, OTHER ==
--- NOTE | 2017-08-15 10:58 | MR ---
MRCP HISTORY: E 27.9, left adrenal nodule Multiplanar multisequence imaging through the abdomen. Three-dimensional reconstructions performed th rough the biliary system. Correlation to prior MRCP 05/25/2017 There is some motion artifact due to patient's inability to breath-hold. Susceptibility artifact noted to patient's lumbar fixation hardware. Infrarenal abdominal aorta is ectatic and 3 cm. Atheromatous changes present. Signal drop in patient's left adrenal nodule is compatible with lipid rich benign adenoma. Lesion maranda sures approximately 2.2 cm. The lesion is essentially stable in size. Similar findings also noted wit hin the right adrenal gland, findings suggest smaller benign adenoma.. Liver shows no mass. Gall bladder is normal. No filling defect to suggest stone. Pancreas and pancrea tic duct are stable in appearance. Spleen shows a stable appearance. Indeterminate stable lesion ante rior spleen may represent a scar, shows a nonaggressive appearance. Patient is post median sternotomy . No retroperitoneal adenopathy or ascites. No evident pleural or pericardial effusion. IMPRESSION: Essentially stable findings. Abdominal aortic ectasia. Benign adrenal adenomas bilaterall y. Postop changes.
== END | disposition home or self-care (01) ==
LOC: RADMRIMAIN 08:21
PROVIDERS: ATTEND Physician Assistant
DX: I77.811 Abdominal aortic ectasia (principal); D35.02 Benign neoplasm of left adrenal gland; D35.01 Benign neoplasm of right adrenal gland; Z98.890 Other specified postprocedural states
CPT/HCPCS: 74181

== ENCOUNTER → 2017-11-28 | Outpatient (CLI) | payer MEDICARE, OTHER ==
--- NOTE | 2017-11-28 16:44 | CT ---
EXAMINATION TYPE: CT abdomen wo/w con DATE OF EXAM: 11/28/2017 HISTORY: Benign neoplasm adrenal gland. CT DLP: 945mGycm Automated Exposure Control for Dose Reduction was Utilized. CONTRAST: CT scan of the abdomen is performed with oral and without and with IV Contrast, patient injected with 100 mL of Isovue M300. Adrenal gland protocol. COMPARISON: Prior CT abdomen and pelvis May 21, 2017 FINDINGS: LUNG BASES: Sternal wires are partially imaged. Some dystrophic calcifications in right breast are fe lt present.. LIVER/GB: No significant abnormality is appreciated. PANCREAS: No significant abnormality is seen. SPLEEN: No significant abnormality is seen. ADRENALS: There is inferior aspect left adrenal mass redemonstrated measuring 1.8 x 1.0 cm axial imag e 26 series 3. Hounsfield units average 29 on noncontrast study. There is heterogeneous enhancement w ith Hounsfield units averaging 117. There is washout down to 50 Hounsfield units on delayed images. G reater than 50% washout is consistent with benign lipid rich adenoma. No significant change in size f rom prior CT is noted. Right adrenal gland measures 1.7 x 1.1 cm series 2 image 24. Hounsfield units average near 17 on nonc ontrast study. Postcontrast images show heterogeneous enhancement up to 92 Hounsfield units. There is washout down to 35 Hounsfield units noted. Mass is stable in size from prior CT. Greater than 50% wa shout is consistent with benign lipid rich adenoma. KIDNEYS: Suspect 4 mm calculus left kidney axial image 29 mid pole level. Central density lower pole level right kidney could reflect collecting system calculus. There is symmetric cortical medullary up take and excretion from both kidneys without hydronephrosis seen bilaterally. BOWEL: Fecal material is somewhat prominent in visualized colonic loops. Patient has very little intr a-abdominal fat making evaluation suboptimal. No suspicious small or large bowel dilatation is seen. LYMPH NODES: No greater than 1cm abdominal lymph nodes are appreciated. OSSEOUS STRUCTURES: Postsurgical change in the lumbar spine extending into the upper sacrum is redemo nstrated. OTHER: Moderate to severe atherosclerotic change of aorta extending into branch vessels is seen. Rosemarie re stenosis at origin right common iliac artery is once again felt present. Severe stenosis in the mi d to distal left common iliac artery is also once again suspected. There is ectasia of the distal abd ominal aorta. The aorta measures up to 3.1 cm transversely axial image 43 series 7. No significant ch blair from prior. IMPRESSION: Stable bilateral adrenal masses with dynamic CT characteristics consistent with benign li pid rich adenomas.
== END | disposition home or self-care (01) ==
LOC: RADCTMAIN 14:29
PROVIDERS: ATTEND Family Medicine
DX: D35.02 Benign neoplasm of left adrenal gland (principal); I10 Essential (primary) hypertension
CPT/HCPCS: 82565; 84520; 74170; 36415; Q9967

== ENCOUNTER 2018-01-24 23:30 | Inpatient (IN) | payer MEDICARE, OTHER ==
[2018-01-24] MEDS ORDERED: SODIUM CHLORIDE 0.9% 1,000 ML IV STA (23:49)
[2018-01-24] MEDS ORDERED: SODIUM CHLORIDE 0.9% 500 ML IV STA (23:49)
--- NOTE | 2018-01-25 00:09 | ED ---
General Adult HPI - General Chief complaint: Weakness Stated complaint: vomiting,weakness Time Seen by Provider: 01/24/18 23:44 Source: patient, family, EMS, RN notes reviewed, old records reviewed Mode of arrival: wheelchair Limitations: no limitations - History of Present Illness Initial comments: 72-year-old female presenting with generalized weakness, and nausea and vomiting. Patient is accompanied by her family members who are able to provide the majority history. Patient has had progressive weakness over the past week. Over the past 24 she's had significant nausea and vomiting with each meal. Patient's family report that she was constipated however she's had several bowel movements in the past 48 hours. No fever or chills. Patient denies pain complaints. No headache. No chest pain. No abdominal pain. No dysuria. No rash. Recent diagnosis of Parkinson's. - Related Data Home Medications Medication Instructions Recorded Confirmed Ipratropium-Albuterol Nebulize 3 ml INHALATION RT-QID@08,12,,09/14/1605/21 [Duoneb 0.5 mg-3 mg/3 ml Soln] amLODIPine [Norvasc] 5 mg PO DAILY@0800 09/14/16 05/21/17 Acetaminophen Tab [Tylenol] 500 mg PO Q8H PRN 05/21/17 05/21/17 Aspirin 81 mg PO DAILY@1700 05/21/17 05/21/17 Baclofen 10 mg PO TID@0600,1400,209905/21/17 05/21/17 Bisacodyl [Dulcolax] 10 mg RECTAL DAILY PRN 05/21/17 05/21/17 Budesonide [Pulmicort] 0.5 mg INHALATION RT-BID 05/21/17 05/21/17 Clopidogrel [Plavix] 75 mg PO DAILY@0800 05/21/17 05/21/17 Docusate [Colace] 100 mg PO DAILY@0800 05/21/17 05/21/17 Docusate [Colace] 200 mg PO HS@209905/21/17 05/21/17 Ferrous Sulfate [Iron (65 MG 325 mg PO DAILY@1700 05/21/17 05/21/17 Elemental)] Gabapentin [Neurontin] 200 mg PO TID@0800,1400,209905/21/17 05/21/17 Isosorbide Dinitrate [Isordil] 20 mg PO BID@0800,1700 05/21/17 05/21/17 Lidocaine 5% Patch [Lidoderm 5% 1 patch TOPICAL DAILY 05/21/17 05/21/17 Patch] Lisinopril [Zestril] 10 mg PO DAILY@0800 05/21/17 05/21/17 Magnesium Hydroxide [Milk of 2,400 mg PO DAILY PRN 05/21/17 05/21/17 Magnesia] Metoprolol Tartrate [Lopressor] 25 mg PO BID@0800,1700 05/21/17 05/21/17 Na Phos,M-B/Na Phos,Di-Ba [Fleet 133 ml RECTAL DAILY PRN 05/21/17 05/21/17 Adult] Nitroglycerin Sl Tabs [Nitrostat] 0.4 mg SUBLINGUAL Q5M PRN 05/21/17 05/21/17 Ondansetron [Zofran] 4 mg PO Q8HR PRN 05/21/17 05/21/17 Polyethylene Glycol 3350 [Miralax] 17 gm PO DAILY@0800 05/21/17 05/21/17 Psyllium Husk (with Sugar) 6 gm PO DAILY@0800 05/21/17 05/21/17 [Metamucil Powder] guaiFENesin [Diabetic Tussin Ex] 200 mg PO Q4H PRN 05/21/17 05/21/17 Previous Rx's Medication Instructions Recorded Pantoprazole [Protonix] 40 mg PO DAILY tablet. 05/25/17 Sennosides-Docusate Sodium 2 each PO BID tab 05/25/17 [Senokot-S] traMADol HCl [Ultram] 50 mg PO Q6H PRN #20 tab 05/25/17 Allergies Allergy/AdvReac Type Severity Reaction Status Date / Time acetaminophen [From [place]] Allergy Unknown Verified 01/24/18 23:35 codeine Allergy Unknown Verified 01/24/18 23:35 egg Allergy Unknown Verified 01/24/18 23:35 hydrocodone [From [place]] Allergy Unknown Verified 01/24/18 23:35 hydromorphone [From Dilaudid] Allergy Unknown Verified 01/24/18 23:35 ibuprofen Allergy Rash/Hives Verified 01/24/18 23:35 shellfish derived [Shrimp] Allergy Rash/Hives Verified 01/24/18 23:35 tomato Allergy Unknown Verified 01/24/18 23:35 Review of Systems ROS Statement: Those systems with pertinent positive or pertinent negative responses have been documented in the HPI. ROS Other: All systems not noted in ROS Statement are negative. Past Medical History Past Medical History: Asthma, Coronary Artery Disease (CAD), Hyperlipidemia, Hypertension, Osteoarthritis (OA), Vascular Disorder Additional Past Medical History / Comment(s): STATES HEAD INJURY R/T A FALL, OSTEOPOROSIS, CHRONIC BACK PAIN, PAD, STATES USES A WHEELCHAIR MOST OF TIME, states has edema in both lower extrem. parkinsons History of Any Multi-Drug Resistant Organisms: None Reported Past Surgical History: Coronary Bypass/CABG Additional Past Surgical History / Comment(s): CYST REMOVED FROM FINGER, FEM/FEM , SPINAL FUSION NECK, COURTNEY CATARACT SX, has a stent in R groin. stent in cartoid artery (right) Past Anesthesia/Blood Transfusion Reactions: No Reported Reaction Past Psychological History: Anxiety Smoking Status: Former smoker Past Alcohol Use History: None Reported Past Drug Use History: None Reported - Past Family History Sister(s) Family Medical History: Cancer Additional Family Medical History / Comment(s): 2 sisters with breast ca Father Family Medical History: Myocardial Infarction ([place]) Additional Family Medical History / Comment(s): several mi's Mother History Unknown: Yes Family Medical History: No Reported History Additional Family Medical History / Comment(s): mom was healthdied from natural causes. General Exam Limitations: no limitations General appearance: alert, in no apparent distress Head exam: Present: atraumatic, normocephalic Eye exam: Present: normal appearance, PERRL, EOMI ENT exam: Present: mucous membranes dry Neck exam: Present: normal inspection. Absent: tenderness, meningismus Respiratory exam: Present: rhonchi. Absent: respiratory distress Cardiovascular Exam: Present: regular rate, normal rhythm GI/Abdominal exam: Present: soft. Absent: distended, tenderness, guarding Extremities exam: Present: normal inspection, normal capillary refill. Absent: pedal edema Neurological exam: Present: alert. Absent: motor sensory deficit Skin exam: Present: warm, dry, intact. Absent: cyanosis, diaphoretic Course Vital Signs 01/24/18 23:31 Temperature 97.8 F Pulse Rate 76 Respiratory 18 Rate Blood Pressure 142/85 O2 Sat by Pulse 97 Oximetry EKG Findings - EKG Comments: EKG Findings:: EKG: Normal sinus rhythm, right atrial enlargement, Q waves and T -wave inversion in lead 3 and aVF possibly a remote inferior infarct. Rate of 70, AR interval 148, QRS duration 86, QTC 481 Medical Decision Making - Medical Decision Making 72-year-old female with generalized weakness nausea vomiting. Patient appears dehydrated on exam. Nonfocal neurologic exam. Head CT is obtained, this negative for intracranial hemorrhage, there is chronic changes. Chest x-ray negative for focal pneumonia, abdominal x-ray is negative for obstruction or intraperitoneal free air. Laboratory studies reveal mild leukocytosis, uncertain significance at this time. She has a mild anion gap metabolic acidosis with BUN of 33 and creatinine of 1.7 which is bilateral baseline. Patient's weakness likely secondary to dehydration and acute kidney injury. She will be admitted for IV hydration and reevaluation. - Lab Data Result diagrams: 01/25/18 00:08 01/25/18 00:08 Lab Results 01/25/18 01/25/18 01/25/18 Range/Units 00:08 00:08 00:08 WBC 14.4 H (3.8-10.6) k/uL RBC 4.93 (3.80-5.40) m/uL Hgb 14.3 (11.4-16.0) gm/dL Hct 42.3 (34.0-46.0) % MCV 85.8 (80.0-100.0) fL MCH 28.9 (25.0-35.0) pg MCHC 33.7 (31.0-37.0) g/dL RDW 12.5 (11.5-15.5) % Plt Count 331 (150-450) k/uL Neutrophils % 88 % Lymphocytes % 7 % Monocytes % 3 % Eosinophils % 1 % Basophils % 0 % Neutrophils # 12.7 H (1.3-7.7) k/uL Lymphocytes # 1.0 (1.0-4.8) k/uL Monocytes # 0.5 (0-1.0) k/uL Eosinophils # 0.1 (0-0.7) k/uL Basophils # 0.0 (0-0.2) k/uL PT (9.0-12.0) sec INR (<1.2) APTT (22.0-30.0) sec Sodium 136 L (137-145) mmol/L Potassium 5.0 (3.5-5.1) mmol/L Chloride 100 (98-107) mmol/L Carbon Dioxide 19 L (22-30) mmol/L Anion Gap 17 mmol/L BUN 33 H (7-17) mg/dL Creatinine 1.70 H (0.52-1.04) mg/dL Est GFR (CKD-EPI)AfAm 34 (>60 ml/min/1.73 sqM) Est GFR (CKD-EPI)NonAf 29 (>60 ml/min/1.73 sqM) Glucose 167 H (74-99) mg/dL Plasma Lactic Acid Jitendra 1.5 (0.7-2.0) mmol/L Calcium 9.9 (8.4-10.2) mg/dL Magnesium 2.1 (1.6-2.3) mg/dL Total Bilirubin 0.4 (0.2-1.3) mg/dL AST 28 (14-36) U/L ALT 49 (9-52) U/L Alkaline Phosphatase 89 (38-126) U/L Troponin I (0.000-0.034) ng/mL Total Protein 6.7 (6.3-8.2) g/dL Albumin 4.5 (3.5-5.0) g/dL Urine Color Urine Appearance (Clear) Urine pH (5.0-8.0) Ur Specific Dawson (1.001-1.035) Urine Protein (Negative) Urine Glucose (UA) (Negative) Urine Ketones (Negative) Urine Blood (Negative) Urine Nitrite (Negative) Urine Bilirubin (Negative) Urine Urobilinogen (<2.0) mg/dL Ur Leukocyte Esterase (Negative) Urine RBC (0-5) /hpf Urine WBC (0-5) /hpf Ur Squamous Epith Cells (0-4) /hpf Amorphous Sediment (None) /hpf Hyaline Casts (0-2) /lpf Granular Casts (0) /lpf Urine Mucus (None) /hpf 01/25/18 01/25/18 01/25/18 Range/Units 00:08 00:08 01:39 WBC (3.8-10.6) k/uL RBC (3.80-5.40) m/uL Hgb (11.4-16.0) gm/dL Hct (34.0-46.0) % MCV (80.0-100.0) fL MCH (25.0-35.0) pg MCHC (31.0-37.0) g/dL RDW (11.5-15.5) % Plt Count (150-450) k/uL Neutrophils % % Lymphocytes % % Monocytes % % Eosinophils % % Basophils % % Neutrophils # (1.3-7.7) k/uL Lymphocytes # (1.0-4.8) k/uL Monocytes # (0-1.0) k/uL Eosinophils # (0-0.7) k/uL Basophils # (0-0.2) k/uL PT 10.1 (9.0-12.0) sec INR 1.0 (<1.2) APTT 21.5 L (22.0-30.0) sec Sodium (137-145) mmol/L Potassium (3.5-5.1) mmol/L Chloride (98-107) mmol/L Carbon Dioxide (22-30) mmol/L Anion Gap mmol/L BUN (7-17) mg/dL Creatinine (0.52-1.04) mg/dL Est GFR (CKD-EPI)AfAm (>60 ml/min/1.73 sqM) Est GFR (CKD-EPI)NonAf (>60 ml/min/1.73 sqM) Glucose (74-99) mg/dL Plasma Lactic Acid Jitendra (0.7-2.0) mmol/L Calcium (8.4-10.2) mg/dL Magnesium (1.6-2.3) mg/dL Total Bilirubin (0.2-1.3) mg/dL AST (14-36) U/L ALT (9-52) U/L Alkaline Phosphatase (38-126) U/L Troponin I <0.012 (0.000-0.034) ng/mL Total Protein (6.3-8.2) g/dL Albumin (3.5-5.0) g/dL Urine Color Yellow Urine Appearance Cloudy H (Clear) Urine pH 5.0 (5.0-8.0) Ur Specific Dawson 1.014 (1.001-1.035) Urine Protein 1+ H (Negative) Urine Glucose (UA) Negative (Negative) Urine Ketones 1+ H (Negative) Urine Blood Large H (Negative) Urine Nitrite Negative (Negative) Urine Bilirubin Negative (Negative) Urine Urobilinogen <2.0 (<2.0) mg/dL Ur Leukocyte Esterase Negative (Negative) Urine RBC 168 H (0-5) /hpf Urine WBC 4 (0-5) /hpf Ur Squamous Epith Cells 2 (0-4) /hpf Amorphous Sediment Occasional H (None) /hpf Hyaline Casts 107 H (0-2) /lpf Granular Casts 6 (0) /lpf Urine Mucus Few H (None) /hpf Disposition Clinical Impression: Acute kidney injury, Dehydration, Generalized weakness Disposition: ADMITTED IP TO THIS [facility] Condition: Stable Is patient prescribed a controlled substance at d/c from ED?: No Referrals: Regan Constantino MD [Primary Care Provider] - 1-2 days Time of Disposition: 02:03 Decision to Admit Reason: Admit from EC Decision Date: 01/25/18 Decision Time: 02:03
[2018-01-25 00:16] LABS: Basophils % (A) 0 %; Eosinophils # (A) 0.1 k/uL (0-0.7); Eosinophils % (A) 1 %; HCT 42.3 % (34.0-46.0); HGB 14.3 gm/dL (11.4-16.0); Lymphocytes % (A) 7 %; MCH 28.9 pg (25.0-35.0); MCHC 33.7 g/dL (31.0-37.0); MCV 85.8 fL (80.0-100.0); Mean Platelet Volume 6.8; Monocytes # (A) 0.5 k/uL (0-1.0); Monocytes % (A) 3 %; Neutrophils # (A) 12.7 k/uL (1.3-7.7); Neutrophils % (A) 88 %; Platelet Count 331 k/uL (150-450); RBC 4.93 m/uL (3.80-5.40); RDW 12.5 % (11.5-15.5); WBC 14.4 k/uL (3.8-10.6)
[2018-01-25 00:27] LABS: Albumin 4.5 g/dL (3.5-5.0); Calcium 9.9 mg/dL (8.4-10.2); Magnesium 2.1 mg/dL (1.6-2.3); Total Bilirubin 0.4 mg/dL (0.2-1.3); Total Protein 6.7 g/dL (6.3-8.2)
[2018-01-25 00:36] LABS: Prothrombin Time 10.1 sec (9.0-12.0)
--- NOTE | 2018-01-25 00:45 | XR ---
EXAMINATION TYPE: XR chest 2V DATE OF EXAM: 01/25/2018 COMPARISON: 11/10/2016 HISTORY: Weakness TECHNIQUE: Frontal and lateral views of the chest are obtained. FINDINGS: There is no heart failure nor confluent pneumonic infiltrate. There are sternal wires. Hea rt size is normal. Thoracic aorta is atheromatous. There are chest leads. Bony thorax appears intact. IMPRESSION: No active cardiopulmonary disease. No change.
--- NOTE | 2018-01-25 00:51 | XR ---
EXAMINATION TYPE: XR KUB DATE OF EXAM: 01/25/2018 COMPARISON: 05/21/2017 HISTORY: Weakness TECHNIQUE: Single view FINDINGS: There is no sign of intestinal obstruction or pneumoperitoneum. Fecal pattern is normal. Th ere is lumbar spine fusion surgery. There are no pathologic calcifications over the right kidney. The re is possible small calcifications over the left kidney. IMPRESSION: Nonacute abdomen.
--- NOTE | 2018-01-25 00:53 | CT ---
EXAMINATION TYPE: CT brain wo con DATE OF EXAM: 01/25/2018 COMPARISON: 07/15/2016 HISTORY: weakness CT DLP: 1052.50 mGycm Automated exposure control for dose reduction was used. FINDINGS: There is cerebral cortical atrophy. There is no mass effect nor midline shift. There is no sign of in tracranial hemorrhage. The calvarium is intact. There is mild hypodensity around the frontal horns of the lateral ventricles. IMPRESSION: CEREBRAL ATROPHY AND MILD CHRONIC SMALL VESSEL ISCHEMIA. NO ACUTE INTRACRANIAL ABNORMALITY. WHITE MAT TER CHANGES ARE INCREASED SLIGHTLY COMPARED TO OLD EXAM. THERE IS CLEARING OF THE SUBDURAL HEMORRHAGE OVER THE LEFT TEMPORAL LOBE CONVEXITY COMPARED TO OLD EXAM.
[2018-01-25 01:09] LABS: Partial Thromboplastin Time 21.5 sec (22.0-30.0)
[2018-01-25 01:55] LABS: Amorphous Sediment,Urine Occasional /hpf; Appearance,Urine Cloudy (Clear); Bilirubin,Urine Negative (Negative); Blood,Urine Large (Negative); Color,Urine Yellow; Glucose,Urine (UA) Negative (Negative); Granular Casts,Urine 6 /lpf (0); Hyaline Casts,Urine 107 /lpf (0-2); Ketones,Urine 1+ (Negative); Leukocyte Esterase,Urine Negative (Negative); Mucus,Urine Few /hpf; Nitrite,Urine Negative (Negative); Protein,Urine 1+ (Negative); RBC,Urine 168 /hpf (0-5); Specific Gravity,Urine 1.014 (1.001-1.035); Squamous Epithelial Cell,Urine 2 /hpf (0-4); Urobilinogen,Urine <2.0 mg/dL (<2.0); WBC,Urine 4 /hpf (0-5)
[2018-01-25] MEDS ORDERED: NALOXONE 0.4 MG/ML 1 ML VIAL IV PRN (02:04)
[2018-01-25] MEDS ORDERED: ONDANSETRON 4 MG/2 ML VIAL IVP PRN (02:04)
[2018-01-25] MEDS ORDERED: SODIUM CHLORIDE 0.9% 500 ML IV ONE (02:04)
[2018-01-25 03:28] VITALS: BMI 23.4
[2018-01-25] MEDS: amLODIPine 5 MG TAB PO SCH (09:12)
[2018-01-25] MEDS: DOCUSATE 100 MG CAP PO SCH ×2 (09:12→19:21)
[2018-01-25] MEDS: METOPROLOL TARTRATE 25 MG TAB PO SCH ×2 (09:12→16:41)
[2018-01-25] MEDS: CLOPIDOGREL 75 MG TAB PO SCH (09:12)
[2018-01-25] MEDS ORDERED: IPRATROPIUM-ALBUTEROL 3 ML NEB INHALATION SCH (14:00)
[2018-01-25] MEDS: FAMOTIDINE 20 MG/2 ML VIAL IV SCH (14:30)
[2018-01-25] MEDS: SODIUM CHLORIDE 0.9% 1,000 ML IV SCH ×2 (14:31→22:53)
--- NOTE | 2018-01-25 14:38 | P.HPIM ---
History of Present Illness H&P Date: 01/25/18 Chief Complaint: Nausea and vomiting Patient is a 72-year-old female with a known history of coronary artery disease with CABG, peripheral vascular disease, hypertension, hyperlipidemia, osteoarthritis and dementia and also emphysema was brought to the hospital by her family with complaints of generalized weakness and nausea and vomiting. Patient cannot tolerate any history at this time but was able to nod her head. Patient has been having progressively weaker for the past 1 week. Patient is not tolerating oral diet. Patient does have issues with constipation and last bowel movement on Sunday. Otherwise denied any fever or chills. Denied any headache or dizziness. No abdominal pain. No cough was of chest pain or shortness of breath. Patient was recently diagnosed with Parkinson's disease. EKG showed normal sinus rhythm CT head showed cerebral atrophy and mild chronic small was ischemia. No acute intracranial abnormality. White matter changes are increased slightly compared to old exam there is clearing of the subdural hemorrhage over the left upper lobe To compared to the old exam. KUB x-ray showed no acute abdomen Chest x-ray showed no acute active cardiopulmonary disease. No change. WBC 14.4. BUN 33 creatinine 1.7 sodium 136 As per the family to try to transfer the patient to a [facility] previously but could not get placement. Review of Systems Constitutional: Patient denies any fever or chills . No generalized weakness or weight loss. Abdomen: Does have nausea and vomiting. No abdominal pain. No diarrhea. Patient does have constipation Cardiovascular: Patient denies any chest pain or short of breath no palpitations. Respiratory: patient denied any cough is from production. No shortness of breath Neurologic: Patient denied any numbness or tingling headache. Complete review of systems could not be obtained from the patient Past Medical History Past Medical History: Asthma, Coronary Artery Disease (CAD), Hyperlipidemia, Hypertension, Osteoarthritis (OA), Vascular Disorder Additional Past Medical History / Comment(s): STATES HEAD INJURY R/T A FALL, OSTEOPOROSIS, CHRONIC BACK PAIN, PAD, STATES USES A WHEELCHAIR MOST OF TIME, bruises present and she bruises easily parkinsons History of Any Multi-Drug Resistant Organisms: None Reported Past Surgical History: Coronary Bypass/CABG Additional Past Surgical History / Comment(s): CYST REMOVED FROM FINGER, FEM/FEM , SPINAL FUSION NECK, COURTNEY CATARACT SX, has a stent in R groin. stent in cartoid artery (right) Past Anesthesia/Blood Transfusion Reactions: No Reported Reaction Past Psychological History: Anxiety Smoking Status: Former smoker Past Alcohol Use History: None Reported Additional Past Alcohol Use History / Comment(s): quit smoking 2003, smoked for 45 yrs. SMOKED 1 PPD Past Drug Use History: None Reported - Past Family History Sister(s) Family Medical History: Cancer Additional Family Medical History / Comment(s): 2 sisters with breast ca Father Family Medical History: Myocardial Infarction ([place]) Additional Family Medical History / Comment(s): several mi's Mother History Unknown: Yes Family Medical History: No Reported History Additional Family Medical History / Comment(s): mom was health from natural causes. Medications and Allergies Home Medications Medication Instructions Recorded Confirmed Type amLODIPine [Norvasc] 5 mg PO DAILY 09/14/16 01/25/18 History Baclofen 10 mg PO TID 05/21/17 01/25/18 History Ferrous Sulfate [Iron (65 MG 325 mg PO DAILY@1700 05/21/17 01/25/18 History Elemental)] Gabapentin [Neurontin] 200 mg PO TID 05/21/17 01/25/18 History Lisinopril [Zestril] 10 mg PO DAILY 05/21/17 01/25/18 History Metoprolol Tartrate [Lopressor] 25 mg PO BID 05/21/17 01/25/18 History Na Phos,M-B/Na Phos,Di-Ba [Fleet 133 ml RECTAL DAILY PRN 05/21/17 01/25/18 History Adult] Polyethylene Glycol 3350 [Miralax] 17 gm PO DAILY 05/21/17 01/25/18 History Azithromycin [Zithromax Z-pack] See Taper PO DIRECTED 01/25/18 01/25/18 History Carbidopa-Levodopa 25-100 mg 2 tab PO BID 01/25/18 01/25/18 History [Sinemet 25-100] Cetirizine HCl 10 mg PO DAILY 01/25/18 01/25/18 History Pravastatin Sodium [Pravachol] 20 mg PO HS 01/25/18 01/25/18 History hydrOXYzine HCL 25 mg PO TID 01/25/18 01/25/18 History Allergies Allergy/AdvReac Type Severity Reaction Status Date / Time acetaminophen [From [place]] Allergy Unknown Verified 01/25/18 08:30 codeine Allergy Unknown Verified 01/25/18 08:30 egg Allergy Unknown Verified 01/25/18 08:30 hydrocodone [From [place]] Allergy Unknown Verified 01/25/18 08:30 hydromorphone [From Dilaudid] Allergy Unknown Verified 01/25/18 08:30 ibuprofen Allergy Rash/Hives Verified 01/25/18 08:30 shellfish derived [Shrimp] Allergy Rash/Hives Verified 01/25/18 08:30 tomato Allergy Unknown Verified 01/25/18 08:30 strawberry AdvReac Diarrhea Verified 01/25/18 08:30 Physical Exam Vitals: Vital Signs Temp Pulse Pulse Pulse Resp BP BP 01/25/18 08:20 96.4 F L 80 16 107/53 01/25/18 04:00 18 01/25/18 03:14 98.3 F 89 18 140/92 01/25/18 02:34 98.4 F 77 18 127/58 01/25/18 01:05 62 18 114/53 01/24/18 23:31 97.8 F 76 18 142/85 Pulse Ox 01/25/18 08:20 94 L 01/25/18 04:00 01/25/18 03:14 93 L 01/25/18 02:34 99 01/25/18 01:05 98 01/24/18 23:31 97 Intake and Output 01/24/18 01/25/18 01/25/18 22:59 06:59 14:59 Intake Total 100 50 Output Total 250 Balance -150 50 Intake: Oral 100 50 Output: Urine 250 Other: Weight 54.5 kg PHYSICAL EXAMINATION: Patient is lying in the bed comfortably, no acute distress, awake alert and orientedx1-2.. HEENT: Normocephalic. Neck is supple. Pupils reactive. Nostrils clear. Oral cavity is moist. Ears reveal no drainage. Neck reveals no JVD, carotid bruits, or thyromegaly. CHEST EXAMINATION: Trachea is central. Symmetrical expansion. Lung rahman clear to auscultation and percussion. CARDIAC: Normal S1, S2 with no gallops. No murmurs ABDOMEN: Soft. Bowel sounds normal. No organomegaly. No abdominal bruits. Extremities: reveal no edema. No clubbing or cyanosis Neurologically awake, alert, oriented x1-2 with well-coordinated movements. Patient does have underlying dementia. No focal deficits noted Skin: No rash or skin lesions. Psychiatric: Coperative. Could not be assessed completely Musculoskeletal: No joint swelling or deformity. Normal range of motion. Results CBC & Chem 7: 01/25/18 00:08 01/25/18 00:08 Labs: Abnormal Lab Results - Last 24 Hours (Table) 01/25/18 01/25/18 01/25/18 Range/Units 00:08 00:08 00:08 WBC 14.4 H (3.8-10.6) k/uL Neutrophils # 12.7 H (1.3-7.7) k/uL APTT 21.5 L (22.0-30.0) sec Sodium 136 L (137-145) mmol/L Carbon Dioxide 19 L (22-30) mmol/L BUN 33 H (7-17) mg/dL Creatinine 1.70 H (0.52-1.04) mg/dL Glucose 167 H (74-99) mg/dL Urine Appearance (Clear) Urine Protein (Negative) Urine Ketones (Negative) Urine Blood (Negative) Urine RBC (0-5) /hpf Amorphous Sediment (None) /hpf Hyaline Casts (0-2) /lpf Urine Mucus (None) /hpf 01/25/18 Range/Units 01:39 WBC (3.8-10.6) k/uL Neutrophils # (1.3-7.7) k/uL APTT (22.0-30.0) sec Sodium (137-145) mmol/L Carbon Dioxide (22-30) mmol/L BUN (7-17) mg/dL Creatinine (0.52-1.04) mg/dL Glucose (74-99) mg/dL Urine Appearance Cloudy H (Clear) Urine Protein 1+ H (Negative) Urine Ketones 1+ H (Negative) Urine Blood Large H (Negative) Urine RBC 168 H (0-5) /hpf Amorphous Sediment Occasional H (None) /hpf Hyaline Casts 107 H (0-2) /lpf Urine Mucus Few H (None) /hpf Thrombosis Risk Factor Assmnt - Choose All That Apply Any of the Below Risk Factors Present?: Yes Each Factor Represents 1 point: Medical pt on bed rest, Varicose veins Other Risk Factors: Yes Each Risk Factor Represents 2 Points: Age 61-74 years, Patient confined to bed Thrombosis Risk Factor Assessment Total Risk Factor Score: 6 Thrombosis Risk Factor Assessment Level: High Risk Assessment and Plan Assessment: Intractable nausea vomiting and unable to tolerate oral diet Constipation Acute kidney injury most likely prerenal Mild hyponatremia Leukocytosis 14.4 likely reactive. No signs of infection noted. Asthma/COPD History of coronary artery disease with a CABG Hypertension Hyperlipidemia Osteoarthritis Patient will vascular disease Chronic back pain Anxiety Previous history of smoking Plan: Patient will be continued on IV fluids and follow-up renal function. Symptomatic management for nausea and vomiting Zofran and also on Pepcid 20 mg IV twice a day. Encourage oral intake and follow closely. Discussed with her daughter at bedside. follow-up renal function.. PTOT and possible transfer to rehab. Time with Patient: Greater than 30
[2018-01-25] MEDS: ASPIRIN 81 MG PO SCH (16:41)
[2018-01-25] MEDS: IPRATROPIUM-ALBUTEROL 3 ML NEB INHALATION SCH ×2 (20:56→20:59)
[2018-01-25] MEDS: BUDESONIDE 0.5 MG/2 ML NEBU INHALATION SCH (20:59)
[2018-01-26] MEDS: IPRATROPIUM-ALBUTEROL 3 ML NEB INHALATION SCH ×4 (07:40→21:28)
[2018-01-26] MEDS: BUDESONIDE 0.5 MG/2 ML NEBU INHALATION SCH ×2 (07:40→21:28)
[2018-01-26 08:00] LABS: Calcium 9.6 mg/dL (8.4-10.2); Potassium 4.1 mmol/L (3.5-5.1)
[2018-01-26 08:07] LABS: Basophils # (A) 0.1 k/uL (0-0.2); Basophils % (A) 1 %; Eosinophils # (A) 0.2 k/uL (0-0.7); Eosinophils % (A) 1 %; HCT 36.3 % (34.0-46.0); HGB 12.3 gm/dL (11.4-16.0); Lymphocytes # (A) 2.2 k/uL (1.0-4.8); Lymphocytes % (A) 19 %; MCH 28.9 pg (25.0-35.0); MCHC 33.9 g/dL (31.0-37.0); MCV 85.2 fL (80.0-100.0); Monocytes # (A) 0.8 k/uL (0-1.0); Monocytes % (A) 7 %; Neutrophils # (A) 8.3 k/uL (1.3-7.7); Neutrophils % (A) 71 %; Platelet Count 284 k/uL (150-450); RBC 4.26 m/uL (3.80-5.40); RDW 12.7 % (11.5-15.5); WBC 11.7 k/uL (3.8-10.6)
[2018-01-26] MEDS: amLODIPine 5 MG TAB PO SCH (08:38)
[2018-01-26] MEDS: FAMOTIDINE 20 MG/2 ML VIAL IV SCH (08:38)
[2018-01-26] MEDS: DOCUSATE 100 MG CAP PO SCH ×2 (08:38→20:05)
[2018-01-26] MEDS: METOPROLOL TARTRATE 25 MG TAB PO SCH ×2 (08:38→17:35)
[2018-01-26] MEDS: CLOPIDOGREL 75 MG TAB PO SCH (08:38)
[2018-01-26] MEDS: ASPIRIN 81 MG PO SCH (17:35)
[2018-01-26] MEDS: SODIUM CHLORIDE 0.9% 1,000 ML IV SCH (17:35)
--- NOTE | 2018-01-26 22:31 | P.PN ---
Subjective Progress Note Date: 01/26/18 Principal diagnosis: Acute kidney injury Patient is a 72-year-old female with a known history of coronary artery disease with CABG, peripheral vascular disease, hypertension, hyperlipidemia, osteoarthritis and dementia and also emphysema was brought to the hospital by her family with complaints of generalized weakness and nausea and vomiting. Patient cannot tolerate any history at this time but was able to nod her head. Patient has been having progressively weaker for the past 1 week. Patient is not tolerating oral diet. Patient does have issues with constipation and last bowel movement on Sunday. Otherwise denied any fever or chills. Denied any headache or dizziness. No abdominal pain. No cough was of chest pain or shortness of breath. Patient was recently diagnosed with Parkinson's disease. EKG showed normal sinus rhythm CT head showed cerebral atrophy and mild chronic small was ischemia. No acute intracranial abnormality. White matter changes are increased slightly compared to old exam there is clearing of the subdural hemorrhage over the left upper lobe To compared to the old exam. KUB x-ray showed no acute abdomen Chest x-ray showed no acute active cardiopulmonary disease. No change. WBC 14.4. BUN 33 creatinine 1.7 sodium 136 As per the family to try to transfer the patient to a [facility] previously but could not get placement. 01/26/2018 Patient is more awake and oriented today. Leukocytosis normalized. Encourage oral intake. Continue with PT OT and possible transfer to rehab on Sunday. No fever no chills. No complaints of chest pain or shortness or. Otherwise patient is a poor historian Current medications reviewed Objective - Vital Signs Vital signs: Vital Signs Temp 98.3 F 01/26/18 15:00 Pulse 68 01/26/18 21:43 Resp 16 01/26/18 15:00 BP 121/57 01/26/18 15:00 Pulse Ox 94 L 01/26/18 15:00 Intake & Output 01/26/18 01/26/18 01/27/18 06:59 18:59 06:59 Intake Total 1000 1050 Balance 1000 1050 Intake: IV 900 600 Sodium Chloride 0.9% 1, 900 600 000 ml @ 75 mls/hr IV . [id number] [facility] Rx#:[id number] Oral 100 450 Other: Voiding Method Bedside Commode Bedside Commode # Voids 1 3 # Bowel Movements 2 - Exam PHYSICAL EXAMINATION: Patient is lying in the bed comfortably, no acute distress, awake alert and orientedx1-2.. HEENT: Normocephalic. Neck is supple. Pupils reactive. Nostrils clear. Oral cavity is moist. Ears reveal no drainage. Neck reveals no JVD, carotid bruits, or thyromegaly. CHEST EXAMINATION: Trachea is central. Symmetrical expansion. Lung rahman clear to auscultation and percussion. CARDIAC: Normal S1, S2 with no gallops. No murmurs ABDOMEN: Soft. Bowel sounds normal. No organomegaly. No abdominal bruits. Extremities: reveal no edema. No clubbing or cyanosis Neurologically awake, alert, oriented x1-2 with well-coordinated movements. Patient does have underlying dementia. No focal deficits noted Skin: No rash or skin lesions. Psychiatric: Coperative. Could not be assessed completely Musculoskeletal: No joint swelling or deformity. Normal range of motion. - Labs CBC & Chem 7: 01/26/18 07:04 01/26/18 07:04 Labs: Abnormal Lab Results - Last 24 Hours (Table) 01/26/18 01/26/18 Range/Units 07:04 07:04 WBC 11.7 H (3.8-10.6) k/uL Neutrophils # 8.3 H (1.3-7.7) k/uL Chloride 108 H (98-107) mmol/L Carbon Dioxide 20 L (22-30) mmol/L BUN 22 H (7-17) mg/dL Assessment and Plan Assessment: Intractable nausea vomiting and unable to tolerate oral diet. Improved now Constipation. Resolved Acute kidney injury most likely prerenal. Improved Mild hyponatremia Leukocytosis 14.4 likely reactive. No signs of infection noted. Asthma/COPD History of coronary artery disease with a CABG Hypertension Hyperlipidemia Osteoarthritis Patient will vascular disease Chronic back pain Anxiety Previous history of smoking Plan: Patient will be continued on IV fluids and follow-up renal function. Symptomatic management for nausea and vomiting Zofran and also on Pepcid 20 mg IV twice a day. Encourage oral intake and follow closely. Discussed with her daughter at bedside. follow-up renal function.. PTOT and possible transfer to rehab. Time with Patient: Greater than 30
[2018-01-27] MEDS: BUDESONIDE 0.5 MG/2 ML NEBU INHALATION SCH ×2 (08:33→20:42)
[2018-01-27] MEDS: IPRATROPIUM-ALBUTEROL 3 ML NEB INHALATION SCH ×4 (08:34→20:42)
[2018-01-27] MEDS: amLODIPine 5 MG TAB PO SCH (08:56)
[2018-01-27] MEDS: METOPROLOL TARTRATE 25 MG TAB PO SCH ×2 (08:56→16:33)
[2018-01-27] MEDS: CLOPIDOGREL 75 MG TAB PO SCH (08:56)
[2018-01-27] MEDS: FAMOTIDINE 20 MG/2 ML VIAL IV SCH (08:56)
[2018-01-27] MEDS: DOCUSATE 100 MG CAP PO SCH ×2 (08:56→22:23)
[2018-01-27] MEDS ORDERED: NA PHOS,M-B/NA PHOS,DI-BA 133 ML ENEMA RECTAL PRN (09:25)
[2018-01-27] MEDS: CARBIDOPA-LEVODOPA 25-100 MG 1 EACH TAB PO SCH ×2 (10:10→22:24)
[2018-01-27] MEDS: hydrOXYzine HCL 25 MG TAB PO SCH ×3 (10:10→22:24)
[2018-01-27] MEDS: GABAPENTIN 100 MG CAP PO SCH ×3 (10:11→22:23)
[2018-01-27] MEDS: SODIUM CHLORIDE 0.9% 1,000 ML IV SCH ×2 (10:12→16:45)
--- NOTE | 2018-01-27 14:14 | P.PN ---
Subjective Progress Note Date: 01/27/18 Principal diagnosis: Acute kidney injury Patient is a 72-year-old female with a known history of coronary artery disease with CABG, peripheral vascular disease, hypertension, hyperlipidemia, osteoarthritis and dementia and also emphysema was brought to the hospital by her family with complaints of generalized weakness and nausea and vomiting. Patient cannot tolerate any history at this time but was able to nod her head. Patient has been having progressively weaker for the past 1 week. Patient is not tolerating oral diet. Patient does have issues with constipation and last bowel movement on Sunday. Otherwise denied any fever or chills. Denied any headache or dizziness. No abdominal pain. No cough was of chest pain or shortness of breath. Patient was recently diagnosed with Parkinson's disease. EKG showed normal sinus rhythm CT head showed cerebral atrophy and mild chronic small was ischemia. No acute intracranial abnormality. White matter changes are increased slightly compared to old exam there is clearing of the subdural hemorrhage over the left upper lobe To compared to the old exam. KUB x-ray showed no acute abdomen Chest x-ray showed no acute active cardiopulmonary disease. No change. WBC 14.4. BUN 33 creatinine 1.7 sodium 136 As per the family to try to transfer the patient to a intermediate previously but could not get placement. 01/26/2018 Patient is more awake and oriented today. Leukocytosis normalized. Encourage oral intake. Continue with PT OT and possible transfer to rehab on Sunday. No fever no chills. No complaints of chest pain or shortness or. Otherwise patient is a poor historian 01/27/2018 Patient is awake alert and is able to communicate slowly. Patient is not tolerating oral diet today. Started back having nausea and an episode of vomiting. No compressive chest pain or shortness of breath. No abdominal pain no diarrhea. No headache or dizziness or lightheadedness All other review of systems could not be obtained from the patient. Current medications reviewed Objective - Vital Signs Vital signs: Vital Signs Temp 98.2 F 01/27/18 07:00 Pulse 66 01/27/18 08:51 Resp 14 01/27/18 07:00 BP 136/78 01/27/18 07:00 Pulse Ox 94 L 01/27/18 07:00 Intake & Output 01/26/18 01/27/18 01/27/18 18:59 06:59 18:59 Intake Total 1050 1190 Balance 1050 1190 Intake: IV 600 600 Sodium Chloride 0.9% 1, 600 600 000 ml @ 75 mls/hr IV . [id number] [facility] Rx#:[id number] Oral 450 590 Other: Voiding Method Bedside Commode Bedside Commode Bedside Commode # Voids 3 4 # Bowel Movements 2 1 - Exam PHYSICAL EXAMINATION: Patient is lying in the bed comfortably, no acute distress, awake alert and orientedx1-2.. HEENT: Normocephalic. Neck is supple. Pupils reactive. Nostrils clear. Oral cavity is moist. Ears reveal no drainage. Neck reveals no JVD, carotid bruits, or thyromegaly. CHEST EXAMINATION: Trachea is central. Symmetrical expansion. Lung rahman clear to auscultation and percussion. CARDIAC: Normal S1, S2 with no gallops. No murmurs ABDOMEN: Soft. Bowel sounds normal. No organomegaly. No abdominal bruits. Extremities: reveal no edema. No clubbing or cyanosis Neurologically awake, alert, oriented x1-2 with well-coordinated movements. Patient does have underlying dementia. No focal deficits noted Skin: No rash or skin lesions. Psychiatric: Coperative. Could not be assessed completely Musculoskeletal: No joint swelling or deformity. Normal range of motion. - Labs CBC & Chem 7: 01/26/18 07:04 01/26/18 07:04 Assessment and Plan Assessment: Intractable nausea vomiting and unable to tolerate oral diet. Possible gastritis. Improved now Constipation. Resolved Acute kidney injury most likely prerenal. Improved Mild hyponatremia Leukocytosis 14.4 likely reactive. No signs of infection noted. Asthma/COPD History of coronary artery disease with a CABG Hypertension Hyperlipidemia Osteoarthritis Patient will vascular disease Chronic back pain Anxiety Previous history of smoking Plan: Patient will be continued on IV fluids and follow-up renal function. Symptomatic management for nausea and vomiting Zofran and also on Pepcid 20 mg IV twice a day. Encourage oral intake and follow closely. Discussed with her daughter at bedside. follow-up renal function.. PTOT and possible transfer to rehab. Time with Patient: Greater than 30
[2018-01-27 15:50] VITALS: RESP 16
[2018-01-27] MEDS: PANTOPRAZOLE 40 MG/10 ML VIAL IVP SCH ×2 (16:27→16:34)
[2018-01-27] MEDS: ASPIRIN 81 MG PO SCH (16:33)
[2018-01-27] MEDS ORDERED: PRAVASTATIN SODIUM 20 MG TAB PO SCH (21:00)
[2018-01-28] MEDS: IPRATROPIUM-ALBUTEROL 3 ML NEB INHALATION SCH ×3 (07:07→17:10)
[2018-01-28] MEDS: BUDESONIDE 0.5 MG/2 ML NEBU INHALATION SCH (07:07)
[2018-01-28] MEDS: hydrOXYzine HCL 25 MG TAB PO SCH ×2 (07:50→17:43)
[2018-01-28] MEDS: GABAPENTIN 100 MG CAP PO SCH ×2 (07:51→17:43)
[2018-01-28] MEDS: amLODIPine 5 MG TAB PO SCH (07:51)
[2018-01-28] MEDS: CLOPIDOGREL 75 MG TAB PO SCH (07:51)
[2018-01-28] MEDS: DOCUSATE 100 MG CAP PO SCH (07:51)
[2018-01-28] MEDS: CARBIDOPA-LEVODOPA 25-100 MG 1 EACH TAB PO SCH (07:52)
[2018-01-28] MEDS: METOPROLOL TARTRATE 25 MG TAB PO SCH (07:52)
[2018-01-28] MEDS: PANTOPRAZOLE 40 MG/10 ML VIAL IVP SCH (08:08)
[2018-01-28] MEDS: SODIUM CHLORIDE 0.9% 1,000 ML IV SCH (08:09)
[2018-01-28 08:15] LABS: Basophils # (A) 0.1 k/uL (0-0.2); Basophils % (A) 1 %; Eosinophils # (A) 0.4 k/uL (0-0.7); Eosinophils % (A) 5 %; HCT 38.8 % (34.0-46.0); HGB 12.9 gm/dL (11.4-16.0); Lymphocytes # (A) 1.9 k/uL (1.0-4.8); Lymphocytes % (A) 21 %; MCH 28.6 pg (25.0-35.0); MCHC 33.4 g/dL (31.0-37.0); MCV 85.6 fL (80.0-100.0); Mean Platelet Volume 6.8; Monocytes # (A) 0.6 k/uL (0-1.0); Monocytes % (A) 6 %; Neutrophils # (A) 5.9 k/uL (1.3-7.7); Neutrophils % (A) 65 %; Platelet Count 262 k/uL (150-450); RBC 4.53 m/uL (3.80-5.40); RDW 12.7 % (11.5-15.5); WBC 9.1 k/uL (3.8-10.6)
[2018-01-28 08:27] LABS: Anion Gap 9 mmol/L; Blood Urea Nitrogen 9 mg/dL (7-17); Calcium 9.3 mg/dL (8.4-10.2); Carbon Dioxide 22 mmol/L (22-30); Chloride 107 mmol/L (98-107); Glucose 125 mg/dL (74-99); Potassium 3.6 mmol/L (3.5-5.1); Sodium 138 mmol/L (137-145)
--- NOTE | 2018-01-28 11:17 | FL ---
EXAMINATION TYPE: FL barium swallow w video DATE OF EXAM: 01/28/2018 MODIFIED SWALLOW / DEGLUTITION STUDY CLINICAL HISTORY: Dysphagia. Parkinson's. TECHNIQUE: Deglutition study is performed utilizing thin liquid barium, honey and nectar thick liqui d barium, barium thick applesauce, and barium coated cracker. 1 minute and 39 seconds of fluoroscopy time was utilized during the examination with 0 images saved as this was video recorded. COMPARISON: None. FINDINGS: The oral and pharyngeal phases show satisfactory initiation and propagation with all modali ties tested. Normal mastication is seen with solid modalities tested. Laryngeal penetration is seen with the thin liquid consistency. No cough reflex was elicited. With the honey thick consistency the re was persistent deep phalangeal penetration without aspiration. Remaining consistencies tested demo nstrated no evidence of laryngeal penetration or aspiration. Pharyngeal and vallecular retention are noted with the barium thick applesauce and barium coated cracker. This is most pronounced with the ba rium coated cracker. IMPRESSION: 1. Laryngeal penetration and aspiration with the thin liquid consistency without cough reflex. 2. Deep laryngeal penetration with honey thick consistency without aspiration. 3. Vallecular and pharyngeal residual with barium thick applesauce and barium coated cracker. Please refer to speech therapist notes for further details if necessary.
--- NOTE | 2018-01-28 12:05 | P.DS ---
Providers Date of admission: 01/25/18 02:04 Attending physician: Cordell Brooke Primary care physician: Regan Constantino [facility] Course: 72-year-old female with a known history of coronary artery disease with CABG, peripheral vascular disease, hypertension, hyperlipidemia, osteoarthritis and dementia and also emphysema was brought to the hospital by her family with complaints of generalized weakness and nausea and vomiting. Patient cannot tolerate any history at this time but was able to nod her head. Patient has been having progressively weaker for the past 1 week. Patient is not tolerating oral diet. Patient does have issues with constipation and last bowel movement on Sunday. Otherwise denied any fever or chills. Denied any headache or dizziness. No abdominal pain. No cough was of chest pain or shortness of breath. Patient was recently diagnosed with Parkinson's disease. EKG showed normal sinus rhythm CT head showed cerebral atrophy and mild chronic small was ischemia. No acute intracranial abnormality. White matter changes are increased slightly compared to old exam there is clearing of the subdural hemorrhage over the left upper lobe To compared to the old exam. KUB x-ray showed no acute abdomen Chest x-ray showed no acute active cardiopulmonary disease. No change. WBC 14.4. BUN 33 creatinine 1.7 sodium 136 As per the family to try to transfer the patient to a group home previously but could not get placement. 01/26/2018 Patient is more awake and oriented today. Leukocytosis normalized. Encourage oral intake. Continue with PT OT and possible transfer to rehab on Sunday. No fever no chills. No complaints of chest pain or shortness or. Otherwise patient is a poor historian 01/27/2018 Patient is awake alert and is able to communicate slowly. Patient is not tolerating oral diet today. Started back having nausea and an episode of vomiting. No compressive chest pain or shortness of breath. No abdominal pain no diarrhea. 01/28/2018 Patient is clinically doing well will be discharged to subacute rehabilitation today. No overnight events. PHYSICAL EXAMINATION: Patient is lying in the bed comfortably, no acute distress, awake alert and orientedx 2-3 HEENT: Normocephalic. Neck is supple. Pupils reactive. Nostrils clear. Oral cavity is moist. Ears reveal no drainage. Neck reveals no JVD, carotid bruits, or thyromegaly. CHEST EXAMINATION: Trachea is central. Symmetrical expansion. Lung rahman clear to auscultation and percussion. CARDIAC: Normal S1, S2 with no gallops. No murmurs ABDOMEN: Soft. Bowel sounds normal. No organomegaly. No abdominal bruits. Extremities: reveal no edema. No clubbing or cyanosis Neurologically awake, alert, Patient does have underlying dementia. No focal deficits noted Skin: No rash or skin lesions. Psychiatric: Coperative. Could not be assessed completely Musculoskeletal: No joint swelling or deformity. Normal range of motion. Assessment and Plan Assessment: Intractable nausea vomiting and unable to tolerate oral diet. Possible gastritis. Improved now Constipation. Resolved Acute kidney injury most likely prerenal. Improved Mild hyponatremia, hypovolemic improved Leukocytosis 14.4 likely reactive. No signs of infection noted. Asthma/COPD History of coronary artery disease with a CABG Hypertension: Discontinued and lisinopril because of poor renal function and hypotension Hyperlipidemia Osteoarthritis Peripheral vascular disease and patient was started on Plavix. Chronic back pain Anxiety Previous history of smoking Patient Condition at Discharge: Stable Plan - Discharge Summary Discharge Rx Participant: No New Discharge Prescriptions: New Clopidogrel [Plavix] 75 mg PO DAILY@0800 tab Ranitidine HCl [Zantac] 150 mg PO BID #2 tab Continue amLODIPine [Norvasc] 5 mg PO DAILY Metoprolol Tartrate [Lopressor] 25 mg PO BID Na Phos,M-B/Na Phos,Di-Ba [Fleet Adult] 133 ml RECTAL DAILY PRN PRN Reason: Constipation Gabapentin [Neurontin] 200 mg PO TID Baclofen 10 mg PO TID Polyethylene Glycol 3350 [Miralax] 17 gm PO DAILY Ferrous Sulfate [Iron (65 MG Elemental)] 325 mg PO DAILY@1700 Cetirizine HCl 10 mg PO DAILY Pravastatin Sodium [Pravachol] 20 mg PO HS Carbidopa-Levodopa 25-100 mg [Sinemet 25-100 mg] 2 tab PO BID Discontinued Lisinopril [Zestril] 10 mg PO DAILY hydrOXYzine HCL 25 mg PO TID Azithromycin [Zithromax Z-pack] See Taper PO DIRECTED Discharge Medication List amLODIPine [Norvasc] 5 mg PO DAILY 09/14/16 [History] Baclofen 10 mg PO TID 05/21/17 [History] Ferrous Sulfate [Iron (65 MG Elemental)] 325 mg PO DAILY@1700 05/21/17 [History] Gabapentin [Neurontin] 200 mg PO TID 05/21/17 [History] Metoprolol Tartrate [Lopressor] 25 mg PO BID 05/21/17 [History] Na Phos,M-B/Na Phos,Di-Ba [Fleet Adult] 133 ml RECTAL DAILY PRN 05/21/17 [ History] Polyethylene Glycol 3350 [Miralax] 17 gm PO DAILY 05/21/17 [History] Carbidopa-Levodopa 25-100 mg [Sinemet 25-100 mg] 2 tab PO BID 01/25/18 [History] Cetirizine HCl 10 mg PO DAILY 01/25/18 [History] Pravastatin Sodium [Pravachol] 20 mg PO HS 01/25/18 [History] Clopidogrel [Plavix] 75 mg PO DAILY@0800 tab 01/28/18 [Rx] Ranitidine HCl [Zantac] 150 mg PO BID #2 tab 01/28/18 [Rx] Follow up Appointment(s)/Referral(s): Regan Constantino MD [Primary Care Provider] - 1-2 days Jorge Bliss MD [STAFF PHYSICIAN] - 1 Week Discharge Disposition: TRANSFER TO SNF/ECF
[2018-01-28 17:05] VITALS: BP 135/83; TEMP 97.7
[2018-01-28 17:26] VITALS: PULSE 68
[2018-01-29] MEDS ORDERED: PANTOPRAZOLE 40 MG TABLET PO SCH (07:30)
== END 2018-01-28 17:57 | DRG 682 ==
LOC: EC 23:30 → 5MS5E 01-25 02:04
PROVIDERS: ADMIT Hospitalist; ATTEND Hospitalist
DX: N17.9 Acute kidney failure, unspecified (principal); I62.00 Nontraumatic subdural hemorrhage, unspecified; E87.1 Hypo-osmolality and hyponatremia; G20 Parkinson's disease; I95.9 Hypotension, unspecified; J43.9 Emphysema, unspecified; F03.90 Unspecified dementia, unspecified severity, without behavioral disturbance, psychotic disturbance, mood disturbance, and anxiety; E86.0 Dehydration; E86.1 Hypovolemia; I25.10 Atherosclerotic heart disease of native coronary artery without angina pectoris; I10 Essential (primary) hypertension; E78.5 Hyperlipidemia, unspecified; K29.70 Gastritis, unspecified, without bleeding; M19.91 Primary osteoarthritis, unspecified site; D72.829 Elevated white blood cell count, unspecified; M81.0 Age-related osteoporosis without current pathological fracture; G89.29 Other chronic pain; M54.9 Dorsalgia, unspecified; F41.9 Anxiety disorder, unspecified; K59.00 Constipation, unspecified; R40.2142 Coma scale, eyes open, spontaneous, at arrival to emergency department; R40.2362 Coma scale, best motor response, obeys commands, at arrival to emergency department; R40.2252 Coma scale, best verbal response, oriented, at arrival to emergency department; I73.9 Peripheral vascular disease, unspecified; Z79.02 Long term (current) use of antithrombotics/antiplatelets; Z79.82 Long term (current) use of aspirin; Z79.899 Other long term (current) drug therapy; Z79.51 Long term (current) use of inhaled steroids; Z95.1 Presence of aortocoronary bypass graft; Z87.891 Personal history of nicotine dependence; Z95.828 Presence of other vascular implants and grafts; Z98.1 Arthrodesis status; Z98.42 Cataract extraction status, left eye; Z98.41 Cataract extraction status, right eye; Z91.012 Allergy to eggs; Z88.5 Allergy status to narcotic agent; Z91.013 Allergy to seafood; Z88.8 Allergy status to other drugs, medicaments and biological substances; Z91.018 Allergy to other foods; Z80.3 Family history of malignant neoplasm of breast; Z82.49 Family history of ischemic heart disease and other diseases of the circulatory system
CPT/HCPCS: 36415; 70450; 71046; 74018; 74230; 80048; 80053; 81001; 83605; 83735; 84484; 85025; 85610; 85730; 93005; 94640; 94760; 96360; 96361; 99285

== ENCOUNTER 2018-03-18 16:44 | Emergency (ER) | payer MEDICARE, OTHER ==
--- NOTE | 2018-03-18 18:18 | ED ---
Fall HPI - General Chief Complaint: Fall Stated Complaint: Fall Time Seen by Provider: 03/18/18 17:46 Source: patient, RN notes reviewed Mode of arrival: EMS Limitations: no limitations - History of Present Illness Initial Comments: This is a 72-year-old female who presents to the emergency department with chief complaint of fall injury. Patient was transported to the emergency department via EMS. She is a resident at [facility] where she stays for Parkinson' s. Patient states that prior to arrival she was sitting on the edge of her bed , lost her balance and fell forward hitting the right side of her face on the hard floor. Fall was witnessed and loss of consciousness is denied. Patient denies dizziness, chest pain or shortness of breath, weakness. Patient complains of right-sided face and neck pain. Her daughter is present and states the patient does have a history of a subdural hemorrhage. Patient is on Plavix for peripheral vascular disease. Patient denies any fevers or chills, abdominal pain, nausea or vomiting, numbness or tingling, constipation or diarrhea, dysuria or hematuria. She denies any vision changes or headache. - Related Data Home Medications Medication Instructions Recorded Confirmed amLODIPine [Norvasc] 5 mg PO DAILY 09/14/16 01/25/18 Baclofen 10 mg PO TID 05/21/17 01/25/18 Ferrous Sulfate [Iron (65 MG 325 mg PO DAILY@1700 05/21/17 01/25/18 Elemental)] Gabapentin [Neurontin] 200 mg PO TID 05/21/17 01/25/18 Metoprolol Tartrate [Lopressor] 25 mg PO BID 05/21/17 01/25/18 Na Phos,M-B/Na Phos,Di-Ba [Fleet 133 ml RECTAL DAILY PRN 05/21/17 01/25/18 Adult] Polyethylene Glycol 3350 [Miralax] 17 gm PO DAILY 05/21/17 01/25/18 Carbidopa-Levodopa 25-100 mg 2 tab PO BID 01/25/18 01/25/18 [Sinemet 25-100 mg] Cetirizine HCl 10 mg PO DAILY 01/25/18 01/25/18 Pravastatin Sodium [Pravachol] 20 mg PO HS 01/25/18 01/25/18 Previous Rx's Medication Instructions Recorded Clopidogrel [Plavix] 75 mg PO DAILY@0800 tab 01/28/18 Ranitidine HCl [Zantac] 150 mg PO BID #2 tab 01/28/18 Allergies Allergy/AdvReac Type Severity Reaction Status Date / Time acetaminophen [From [place]] Allergy Unknown Verified 01/25/18 08:30 codeine Allergy Unknown Verified 01/25/18 08:30 egg Allergy Unknown Verified 01/25/18 08:30 hydrocodone [From [place]] Allergy Unknown Verified 01/25/18 08:30 hydromorphone [From Dilaudid] Allergy Unknown Verified 01/25/18 08:30 ibuprofen Allergy Rash/Hives Verified 01/25/18 08:30 shellfish derived [Shrimp] Allergy Rash/Hives Verified 01/25/18 08:30 tomato Allergy Unknown Verified 01/25/18 08:30 strawberry AdvReac Diarrhea Verified 01/25/18 08:30 Review of Systems ROS Statement: Those systems with pertinent positive or pertinent negative responses have been documented in the HPI. ROS Other: All systems not noted in ROS Statement are negative. Past Medical History Past Medical History: Asthma, Coronary Artery Disease (CAD), Hyperlipidemia, Hypertension, Osteoarthritis (OA), Vascular Disorder Additional Past Medical History / Comment(s): STATES HEAD INJURY R/T A FALL, OSTEOPOROSIS, CHRONIC BACK PAIN, PAD, STATES USES A WHEELCHAIR MOST OF TIME, bruises present and she bruises easily parkinsons History of Any Multi-Drug Resistant Organisms: None Reported Past Surgical History: Coronary Bypass/CABG Additional Past Surgical History / Comment(s): CYST REMOVED FROM FINGER, FEM/FEM , SPINAL FUSION NECK, COURTNEY CATARACT SX, has a stent in R groin. stent in cartoid artery (right) Past Anesthesia/Blood Transfusion Reactions: No Reported Reaction Past Psychological History: Anxiety Smoking Status: Former smoker Past Alcohol Use History: None Reported Past Drug Use History: None Reported - Past Family History Sister(s) Family Medical History: Cancer Additional Family Medical History / Comment(s): 2 sisters with breast ca Father Family Medical History: Myocardial Infarction (DC) Additional Family Medical History / Comment(s): several mi's Mother History Unknown: Yes Family Medical History: No Reported History Additional Family Medical History / Comment(s): mom was health from natural causes. General Exam - General Exam Comments Initial Comments: General: Awake and alert, well-developed; in no apparent distress. HEENT: Large hematoma of the right cheek with right periorbital ecchymosis and swelling. There is an approximately 3.0 cm laceration superior and lateral to the right eyebrow. Pupils are equal, round and reactive to light. Extraocular movements intact. Oropharynx moist without erythema or exudate. Neck: Supple. Normal ROM. Patient is wearing c-collar. No tenderness of cervical spine. Cardiovascular: Regular rate and rhythm. No murmurs, rubs or gallops. Chest symmetrical. Respiratory: Lungs clear to auscultation bilaterally. No wheezes, rales or rhonchi. Normal respiratory effort with no use of accessory muscles. Abdomen: Soft, non-tender, non-distended. No rigidity, rebound or guarding. Normal bowel sounds in all 4 quadrants. Musculoskeletal: Normal ROM, no tenderness, strength 5/5 bilateral upper and lower extremities. Skin: Amo, warm and dry without rashes or lesions. Neurological: Alert and oriented x3. CN II-XII grossly intact. Speech is fluent and answers are appropriate. No focal neuro deficits. Psychiatric: Normal mood and affect. No overt signs of depression or anxiety noted. Limitations: no limitations Course Vital Signs 03/18/18 03/18/18 03/18/18 16:59 20:04 20:28 Temperature 98.4 F 98.1 F 97.6 F Pulse Rate 71 67 84 Respiratory 18 20 20 Rate Blood Pressure 158/69 137/65 142/78 O2 Sat by Pulse 98 95 97 Oximetry Procedures - Laceration Laceration #1 Consent Obtained: verbal consent Indication: laceration Site: face (superior/lateral to right eyebrow) Size (cm): 3 Description: linear Depth: simple, single layer Anesthetic Used: lidocaine 1% Anesthesia Technique: local infiltration Amount (mls): 2 Pre-repair: wound explored, irrigated extensively, deep structures intact Type of Sutures: nylon Size of Sutures: 6-0 Number of Sutures: 8 Technique: simple, interrupted Patient Tolerated Procedure: well, no complications Medical Decision Making - Medical Decision Making This is a 72-year-old female who presents to the emergency department with chief complaint of fall injury. Patient is a resident at [facility]. She states that she was sitting at the edge of her bed earlier today and lost her balance, falling forward and hitting the right side of her face on the floor. No loss of consciousness. Patient denies chest pain or shortness of breath, dizziness or vision changes. Denies any other injuries or trauma. Full range motion of bilateral upper and lower extremities. On physical examination, patient has a large hematoma to the right cheek and periorbital swelling/ecchymosis with subconjunctival hemorrage. She sustained a laceration superior to the right eyebrow. 8 sutures were placed and patient tolerated well without complication. Bleeding is under control. CT of the brain and C-spine revealed no acute abnormalities. CT of the facial bones revealed no evidence for acute fractures. Patient will be discharged back to [facility] at this time. Vitals are stable and she is in no acute distress. Recommended removal of sutures in 5 days. - Radiology Data Radiology results: report reviewed CT facial bones without contrast impression: Negative computed tomography scan of the facial bones. No fracture. CT brain and C-spine without contrast impression: Negative computed tomography scan of the brain. Right lateral facial soft tissue swelling. No fracture seen. Previous fusion surgery in the cervical spine. No fracture. No change compared to old exam. Disposition Clinical Impression: Fall, Facial hematoma, Subconjunctival hemorrhage of right eye, Facial laceration Disposition: HOME SELF-CARE Condition: Good Instructions: Subconjunctival Hemorrhage (ED), Hematoma (ED), Facial Laceration (ED) Additional Instructions: Please have sutures removed in 10-14 days. Please apply cool compresses to the face at least 3-4 times per day for up to 15 minutes. Please follow up with primary care provider within 1-2 days. Return to emergency department if symptoms should worsen or any concerns arise. Is patient prescribed a controlled substance at d/c from ED?: No Referrals: Farooq Jones DO [Primary Care Provider] - 1-2 days Time of Disposition: 20:00
--- NOTE | 2018-03-18 18:46 | CT ---
EXAMINATION TYPE: CT facial bones wo con DATE OF EXAM: 03/18/2018 COMPARISON: None HISTORY: Fall. Right orbit hematoma and swelling. CT DLP: 604.7 mGycm Automated exposure control for dose reduction was used. TECHNIQUE: CT scan of the sinuses is performed without contrast, axial images are obtained, coronal r eformatted images are also reviewed. FINDINGS: The orbital margins are intact. There is no evidence of blowout fracture. There is no evide nce of retro-orbital mass. Zygomatic arches appear normal. Maxilla is intact. Nasal bone is intact. T he mandible appears intact. Temporomandibular joints appear normal. There is fairly normal aeration o f the paranasal sinuses. IMPRESSION: Negative CT scan of the facial bones. No fracture.
--- NOTE | 2018-03-18 18:48 | CT ---
EXAMINATION TYPE: CT brain claudette wo con DATE OF EXAM: 03/18/2018 COMPARISON: 07/15/2016 HISTORY: Fall. Right orbit hematoma and swelling. CT DLP: 1373 mGycm Automated exposure control for dose reduction was used. TECHNIQUE: CT scan of the head and cervical spine are performed without contrast. FINDINGS: There is mild cerebral cortical atrophy. There is no mass effect nor midline shift. There is no sign of intracranial hemorrhage. There is extensive right side soft tissue swelling anterior t o the right zygoma. The calvarium is intact. There is multilevel anterior fusion surgery from C4 to C7. Cervical vertebra have normal alignment. P osterior elements are intact. Facet joints are intact. Skull base is intact. IMPRESSION: Negative CT scan of the brain. Right lateral facial soft tissue swelling. No fracture seen. Previous fusion surgery in the cervical spine. No fracture. No change compared to old exam.
[2018-03-18 20:04] VITALS: RESP 20
[2018-03-18 20:29] VITALS: BP 142/78; PULSE 84; TEMP 97.6
== END 2018-03-18 20:31 | disposition home or self-care (01) ==
LOC: EC 16:44
DX: S01.81XA Laceration without foreign body of other part of head, initial encounter (principal); H11.31 Conjunctival hemorrhage, right eye; I25.10 Atherosclerotic heart disease of native coronary artery without angina pectoris; E78.5 Hyperlipidemia, unspecified; I10 Essential (primary) hypertension; I73.9 Peripheral vascular disease, unspecified; G20 Parkinson's disease; Z87.891 Personal history of nicotine dependence; Z79.02 Long term (current) use of antithrombotics/antiplatelets; Z79.899 Other long term (current) drug therapy; Z88.6 Allergy status to analgesic agent; Z88.5 Allergy status to narcotic agent; Z91.012 Allergy to eggs; Z91.013 Allergy to seafood; Z91.018 Allergy to other foods; Z95.1 Presence of aortocoronary bypass graft; W18.09XA Striking against other object with subsequent fall, initial encounter
CPT/HCPCS: 12013; 70450; 70486; 72125; 99284

== ENCOUNTER 2019-05-06 07:20 | Observation (INO) | payer MEDICARE, OTHER ==
[2019-05-06] MEDS ORDERED: PANTOPRAZOLE 40 MG/10 ML VIAL IVP STA (07:30)
[2019-05-06] MEDS ORDERED: ONDANSETRON 4 MG/2 ML VIAL IVP STA (07:30)
[2019-05-06] MEDS ORDERED: SODIUM CHLORIDE 0.9% 1,000 ML IV STA (07:30)
--- NOTE | 2019-05-06 07:33 | ED ---
General Adult HPI - General Stated complaint: Vomiting Time Seen by Provider: 05/06/19 07:25 Source: patient, EMS, RN notes reviewed Mode of arrival: EMS Limitations: altered mental status, physical limitation - History of Present Illness Initial comments: Patient is a pleasant 73-year-old female presenting to the emergency Department with reported vomiting. Patient is a poor historian and has limited verbal capability. Patient appears to answer yes and no appropriately. Patient reportedly did have some concern for blood in emesis. Further history is limited. Patient denies any pain. Patient denies this being a chronic problem. No reported fevers. Patient denies diarrhea. - Related Data Home Medications Medication Instructions Recorded Confirmed amLODIPine [Norvasc] 5 mg PO DAILY@1700 09/14/16 05/06/19 Baclofen 10 mg PO TID@0800,1200,1700 05/21/17 05/06/19 Ferrous Sulfate [Iron (65 MG 325 mg PO Q48H 05/21/17 05/06/19 Elemental)] Gabapentin [Neurontin] 300 mg PO HS@2100 05/21/17 05/06/19 Metoprolol Tartrate [Lopressor] 25 mg PO BID@0800,1700 05/21/17 05/06/19 Na Phos,M-B/Na Phos,Di-Ba [Fleet 133 ml RECTAL DAILY PRN 05/21/17 05/06/19 Adult] Polyethylene Glycol 3350 [Miralax] 17 gm PO DAILY 05/21/17 05/06/19 Carbidopa-Levodopa 25-100 mg 2 tab PO BID@0800,1700 01/25/18 05/06/19 [Sinemet 25-100 mg] Cetirizine HCl 10 mg PO DAILY PRN 01/25/18 05/06/19 Pravastatin Sodium [Pravachol] 20 mg PO HS@2100 01/25/18 05/06/19 Acetaminophen Tab [Tylenol Tab] 500 mg PO Q8H PRN 05/06/19 05/06/19 Amantadine HCl [Amantadine] 100 mg PO BID@0800,1700 05/06/19 05/06/19 Aspirin 81 mg PO DAILY 05/06/19 05/06/19 Bisacodyl [Dulcolax] 10 mg RECTAL DAILY PRN 05/06/19 05/06/19 Budesonide [Pulmicort] 0.25 mg INHALATION RT-BID@0800,2100 05/06/19 05/06/19 Cholecalciferol [Vitamin D3 (25 1,000 unit PO DAILY 05/06/19 05/06/19 Mcg = 1000 Iu)] Ensure Clear 1 can PO BID@0800,1700 05/06/19 05/06/19 Gabapentin [Neurontin] 100 mg PO BID@0800,1400 05/06/19 05/06/19 Ipratropium-Albuterol Nebulize 3 ml INHALATION RT-Q6H 05/06/19 05/06/19 [Duoneb 0.5 mg-3 mg/3 ml Soln] Isosorbide Mononitrate [Isosorbide 30 mg PO DAILY@0800 05/06/19 05/06/19 Mononitrate ER] Levofloxacin [Levaquin] 250 mg PO DIRECTED 05/06/19 05/06/19 Levofloxacin [Levaquin] 500 mg PO DAILY 05/06/19 05/06/19 Loperamide [Imodium] 2 mg PO DAILY PRN 05/06/19 05/06/19 Mag Hydrox/Al Hydrox/Simeth 15 ml PO Q6H PRN 05/06/19 05/06/19 [Maalox] Magnesium Hydroxide [Milk of 2,400 mg PO DAILY PRN 05/06/19 05/06/19 Magnesia] Menthol [Biofreeze] 1 applic TOPICAL Q12H PRN 05/06/19 05/06/19 Multivitamins, Thera [Multivitamin 1 tab PO DAILY 05/06/19 05/06/19 (formulary)] Ranitidine HCl [Zantac] 150 mg PO DAILY@0800 05/06/19 05/06/19 Tamsulosin HCl [Flomax] 0.4 mg PO DAILY 05/06/19 05/06/19 guaiFENesin [guaiFENesin Oral 200 mg PO Q4H PRN 05/06/19 05/06/19 Solution] Previous Rx's Medication Instructions Recorded Clopidogrel [Plavix] 75 mg PO DAILY@0800 tab 01/28/18 Allergies Allergy/AdvReac Type Severity Reaction Status Date / Time acetaminophen [From [employer]] Allergy Unknown Verified 05/06/19 09:26 codeine Allergy Unknown Verified 05/06/19 09:26 egg Allergy Unknown Verified 05/06/19 09:26 hydrocodone [From [place]] Allergy Unknown Verified 05/06/19 09:26 hydromorphone [From Dilaudid] Allergy Unknown Verified 05/06/19 09:26 ibuprofen Allergy Rash/Hives Verified 05/06/19 09:26 shellfish derived [Shrimp] Allergy Rash/Hives Verified 05/06/19 09:26 tomato Allergy Unknown Verified 05/06/19 09:26 strawberry AdvReac Diarrhea Verified 05/06/19 09:26 Review of Systems ROS Statement: Those systems with pertinent positive or pertinent negative responses have been documented in the HPI. ROS Other: All systems not noted in ROS Statement are negative. Constitutional: Denies: fever Eyes: Denies: eye pain ENT: Denies: ear pain Respiratory: Denies: cough Cardiovascular: Denies: chest pain Endocrine: Denies: fatigue Gastrointestinal: Reports: nausea, vomiting. Denies: abdominal pain Genitourinary: Denies: dysuria Musculoskeletal: Denies: back pain Skin: Denies: rash Past Medical History Past Medical History: Asthma, Coronary Artery Disease (CAD), Hyperlipidemia, Hypertension, Osteoarthritis (OA), Vascular Disorder Additional Past Medical History / Comment(s): STATES HEAD INJURY R/T A FALL, OSTEOPOROSIS, CHRONIC BACK PAIN, PAD, STATES USES A WHEELCHAIR MOST OF TIME, bruises present and she bruises easily parkinsons History of Any Multi-Drug Resistant Organisms: None Reported Past Surgical History: Coronary Bypass/CABG Additional Past Surgical History / Comment(s): CYST REMOVED FROM FINGER, FEM/FEM, SPINAL FUSION NECK, COURTNEY CATARACT SX, has a stent in R groin. stent in cartoid artery (right) Past Anesthesia/Blood Transfusion Reactions: No Reported Reaction Past Psychological History: Anxiety Smoking Status: Former smoker Past Alcohol Use History: None Reported Past Drug Use History: None Reported - Past Family History Sister(s) Family Medical History: Cancer Additional Family Medical History / Comment(s): 2 sisters with breast ca Father Family Medical History: Myocardial Infarction ([place]) Additional Family Medical History / Comment(s): several mi's Mother History Unknown: Yes Family Medical History: No Reported History Additional Family Medical History / Comment(s): mom was health from natural causes. General Exam Limitations: altered mental status, physical limitation General appearance: alert, in no apparent distress, other (Arms and legs retracted. Limited verbal capability. Difficulty following commands.) Head exam: Present: normocephalic Eye exam: Present: normal appearance, PERRL ENT exam: Present: normal oropharynx Respiratory exam: Present: normal lung sounds bilaterally Cardiovascular Exam: Present: regular rate, normal rhythm GI/Abdominal exam: Present: soft. Absent: tenderness Extremities exam: Present: other (Contracted) Neurological exam: Present: alert, altered, other (Limited verbal capability. Limited movement of extremities) Psychiatric exam: Present: flat affect Skin exam: Present: normal color Course Vital Signs 05/06/19 07:22 Temperature 97.0 F L Pulse Rate 85 Respiratory 16 Rate Blood Pressure 141/82 O2 Sat by Pulse 95 Oximetry EKG Findings - EKG Comments: EKG Findings:: Normal sinus rhythm 78. MS 142. QRS 80. QT 366. QTc 417. Normal axis. Normal QRS. No acute ST change. Motion artifact present. Medical Decision Making - Medical Decision Making Patient reevaluated and resting comfortably in bed. Daughter reiterates the patient did have hematemesis. Patient and family updated on results and plan. Case was discussed in detail with Dr. Mendez, who will admit for Dr. Jones. - Lab Data Result diagrams: 05/06/19 07:50 05/06/19 07:50 Lab Results 05/06/19 05/06/19 05/06/19 Range/Units 07:50 07:50 07:50 WBC 12.0 H (3.8-10.6) k/uL RBC 5.12 (3.80-5.40) m/uL Hgb 15.1 (11.4-16.0) gm/dL Hct 46.2 H (34.0-46.0) % MCV 90.2 (80.0-100.0) fL MCH 29.5 (25.0-35.0) pg MCHC 32.7 (31.0-37.0) g/dL RDW 13.1 (11.5-15.5) % Plt Count 268 (150-450) k/uL Neutrophils % 86 % Lymphocytes % 5 % Monocytes % 4 % Eosinophils % 4 % Basophils % 0 % Neutrophils # 10.3 H (1.3-7.7) k/uL Lymphocytes # 0.6 L (1.0-4.8) k/uL Monocytes # 0.4 (0-1.0) k/uL Eosinophils # 0.4 (0-0.7) k/uL Basophils # 0.0 (0-0.2) k/uL PT 9.6 (9.0-12.0) sec INR 0.9 (<1.2) APTT 24.0 (22.0-30.0) sec Sodium 141 (137-145) mmol/L Potassium 4.9 (3.5-5.1) mmol/L Chloride 108 H (98-107) mmol/L Carbon Dioxide 20 L (22-30) mmol/L Anion Gap 13 mmol/L BUN 15 (7-17) mg/dL Creatinine 0.65 (0.52-1.04) mg/dL Est GFR (CKD-EPI)AfAm >90 (>60 ml/min/1.73 sqM) Est GFR (CKD-EPI)NonAf 87 (>60 ml/min/1.73 sqM) Glucose 130 H (74-99) mg/dL Calcium 10.1 (8.4-10.2) mg/dL Total Bilirubin 1.0 (0.2-1.3) mg/dL AST 40 H (14-36) U/L ALT 15 (9-52) U/L Alkaline Phosphatase 93 (38-126) U/L Troponin I (0.000-0.034) ng/mL Total Protein 8.3 H (6.3-8.2) g/dL Albumin 4.6 (3.5-5.0) g/dL Amylase 40 (30-110) U/L Lipase 16 L (23-300) U/L Urine Color Urine Appearance (Clear) Urine pH (5.0-8.0) Ur Specific [place] (1.001-1.035) Urine Protein (Negative) Urine Glucose (UA) (Negative) Urine Ketones (Negative) Urine Blood (Negative) Urine Nitrite (Negative) Urine Bilirubin (Negative) Urine Urobilinogen (<2.0) mg/dL Ur Leukocyte Esterase (Negative) Urine RBC (0-5) /hpf Urine WBC (0-5) /hpf Urine WBC Clumps (None) /hpf Ur Squamous Epith Cells (0-4) /hpf Calcium Oxalate Crystal (None) /hpf Urine Bacteria (None) /hpf Urine Mucus (None) /hpf 05/06/19 05/06/19 Range/Units 07:50 07:50 WBC (3.8-10.6) k/uL RBC (3.80-5.40) m/uL Hgb (11.4-16.0) gm/dL Hct (34.0-46.0) % MCV (80.0-100.0) fL MCH (25.0-35.0) pg MCHC (31.0-37.0) g/dL RDW (11.5-15.5) % Plt Count (150-450) k/uL Neutrophils % % Lymphocytes % % Monocytes % % Eosinophils % % Basophils % % Neutrophils # (1.3-7.7) k/uL Lymphocytes # (1.0-4.8) k/uL Monocytes # (0-1.0) k/uL Eosinophils # (0-0.7) k/uL Basophils # (0-0.2) k/uL PT (9.0-12.0) sec INR (<1.2) APTT (22.0-30.0) sec Sodium (137-145) mmol/L Potassium (3.5-5.1) mmol/L Chloride (98-107) mmol/L Carbon Dioxide (22-30) mmol/L Anion Gap mmol/L BUN (7-17) mg/dL Creatinine (0.52-1.04) mg/dL Est GFR (CKD-EPI)AfAm (>60 ml/min/1.73 sqM) Est GFR (CKD-EPI)NonAf (>60 ml/min/1.73 sqM) Glucose (74-99) mg/dL Calcium (8.4-10.2) mg/dL Total Bilirubin (0.2-1.3) mg/dL AST (14-36) U/L ALT (9-52) U/L Alkaline Phosphatase (38-126) U/L Troponin I <0.012 (0.000-0.034) ng/mL Total Protein (6.3-8.2) g/dL Albumin (3.5-5.0) g/dL Amylase (30-110) U/L Lipase (23-300) U/L Urine Color Yellow Urine Appearance Cloudy H (Clear) Urine pH 5.0 (5.0-8.0) Ur Specific [place] 1.013 (1.001-1.035) Urine Protein Trace H (Negative) Urine Glucose (UA) Negative (Negative) Urine Ketones Negative (Negative) Urine Blood Moderate H (Negative) Urine Nitrite Positive H (Negative) Urine Bilirubin Negative (Negative) Urine Urobilinogen <2.0 (<2.0) mg/dL Ur Leukocyte Esterase Large H (Negative) Urine RBC 58 H (0-5) /hpf Urine WBC 130 H (0-5) /hpf Urine WBC Clumps Occasional H (None) /hpf Ur Squamous Epith Cells <1 (0-4) /hpf Calcium Oxalate Crystal Occasional H (None) /hpf Urine Bacteria Occasional H (None) /hpf Urine Mucus Rare H (None) /hpf - Radiology Data Radiology results: image reviewed (Chest x-ray shows COPD, no acute process. Abdominal x-ray shows nondilated loops of colon. Possible large bowel ileus.) Disposition Clinical Impression: Hematemesis, Vomiting, Urinary tract infection Disposition: ADMITTED IP TO THIS HOSP Is patient prescribed a controlled substance at d/c from ED?: No Referrals: Farooq Jones DO [Primary Care Provider] - 1-2 days Decision Time: 10:25
[2019-05-06 08:19] LABS: ALT 15 U/L (9-52); AST 40 U/L (14-36); African American GFR (CKD) >90 (>60 ml/min/1.73 sqM); Albumin 4.6 g/dL (3.5-5.0); Alkaline Phosphatase 93 U/L (38-126); Amylase 40 U/L (30-110); Anion Gap 13 mmol/L; Blood Urea Nitrogen 15 mg/dL (7-17); Calcium 10.1 mg/dL (8.4-10.2); Carbon Dioxide 20 mmol/L (22-30); Chloride 108 mmol/L (98-107); Glucose 130 mg/dL (74-99); Non-African American GFR(CKD) 87 (>60 ml/min/1.73 sqM); Sodium 141 mmol/L (137-145); Total Protein 8.3 g/dL (6.3-8.2)
[2019-05-06 08:20] LABS: INR 0.9 (<1.2); Prothrombin Time 9.6 sec (9.0-12.0)
[2019-05-06 08:22] LABS: Basophils % (A) 0 %; Eosinophils # (A) 0.4 k/uL (0-0.7); Eosinophils % (A) 4 %; HCT 46.2 % (34.0-46.0); HGB 15.1 gm/dL (11.4-16.0); Lymphocytes # (A) 0.6 k/uL (1.0-4.8); Lymphocytes % (A) 5 %; MCH 29.5 pg (25.0-35.0); MCHC 32.7 g/dL (31.0-37.0); MCV 90.2 fL (80.0-100.0); Mean Platelet Volume 6.2; Monocytes # (A) 0.4 k/uL (0-1.0); Monocytes % (A) 4 %; Neutrophils # (A) 10.3 k/uL (1.3-7.7); Neutrophils % (A) 86 %; Platelet Count 268 k/uL (150-450); RBC 5.12 m/uL (3.80-5.40); RDW 13.1 % (11.5-15.5)
[2019-05-06 08:25] LABS: Appearance,Urine Cloudy (Clear); Bacteria,Urine Occasional /hpf; Bilirubin,Urine Negative (Negative); Blood,Urine Moderate (Negative); Calcium Oxalate Crystals,Urine Occasional /hpf; Color,Urine Yellow; Glucose,Urine (UA) Negative (Negative); Ketones,Urine Negative (Negative); Leukocyte Esterase,Urine Large (Negative); Mucus,Urine Rare /hpf; Nitrite,Urine Positive (Negative); Protein,Urine Trace (Negative); RBC,Urine 58 /hpf (0-5); Specific Gravity,Urine 1.013 (1.001-1.035); Squamous Epithelial Cell,Urine <1 /hpf (0-4); Urobilinogen,Urine <2.0 mg/dL (<2.0); WBC,Urine 130 /hpf (0-5)
[2019-05-06 08:27] LABS: Potassium 4.9 mmol/L (3.5-5.1)
--- NOTE | 2019-05-06 08:32 | XR ---
EXAMINATION TYPE: XR chest 1V portable DATE OF EXAM: 05/06/2019 Comparison: 01/25/2018 Clinical History: 73-year-old female abdominal pain Findings: The patient is obliqued and rotated towards the right. Median sternotomy wires and post-CABG clips. D iffuse interstitial prominence and mild hyperinflation is unchanged. No cristi consolidation or pleura l effusion allowing for patient positioning. ACDF hardware. Impression: Exam limitations due to patient positioning. COPD and chronic changes. No definite acute process.
--- NOTE | 2019-05-06 08:36 | XR ---
EXAMINATION TYPE: XR KUB DATE OF EXAM: 05/06/2019 8:23 AM CLINICAL HISTORY: Abdominal pain and vomiting TECHNIQUE: Single supine KUB image of the abdomen is obtained. COMPARISON: 01/25/2019. FINDINGS: The cecum is distended although within normal limits measuring up to 8 cm. Arrow seen throu ghout the nondilated large bowel. Calcification over the left hemipelvis is unchanged from 01/25/2019. Postsurgical changes of the lumbar spine and right iliac vascular stent is noted again. Surgical cli ps in the left hemipelvis. Supine examination limits evaluation for pneumoperitoneum. No gross eviden ce of pneumoperitoneum or dilated bowel. IMPRESSION: Air within prominent but nondilated loops of colon. Consider a large bowel ileus.
[2019-05-06] MEDS ORDERED: NALOXONE 0.4 MG/ML 1 ML VIAL IV PRN (10:26)
[2019-05-06] MEDS ORDERED: PIPERACILLIN-TAZOBACTAM 3.375 GM in SODIUM CHLORIDE 0.9% 100 ML IVPB STA (10:26)
[2019-05-06] MEDS ORDERED: ONDANSETRON 4 MG/2 ML VIAL IVP PRN (10:26)
[2019-05-06] MEDS: SODIUM CHLORIDE 0.9% 1,000 ML IV SCH ×2 (11:24→21:08)
[2019-05-06] MEDS: IPRATROPIUM-ALBUTEROL 3 ML NEB INHALATION SCH ×3 (15:15→23:41)
[2019-05-06] MEDS: PIPERACILLIN-TAZOBACTAM 3.375 GM in SODIUM CHLORIDE 0.9% 100 ML IVPB SCH ×2 (16:52→23:51)
[2019-05-06] MEDS: CARBIDOPA-LEVODOPA 25-100 MG 1 EACH TAB PO SCH (16:56)
[2019-05-06] MEDS: BACLOFEN 10 MG TAB PO SCH (16:57)
[2019-05-06] MEDS: amLODIPine 5 MG TAB PO SCH (16:57)
[2019-05-06] MEDS: METOPROLOL TARTRATE 25 MG TAB PO SCH (16:57)
[2019-05-06] MEDS: AMANTADINE HCL 100 MG CAP PO SCH (16:57)
[2019-05-06] MEDS: GABAPENTIN 300 MG CAP PO SCH (19:59)
[2019-05-06] MEDS: PRAVASTATIN SODIUM 20 MG TAB PO SCH (19:59)
[2019-05-06] MEDS: BUDESONIDE 0.25 MG/2 ML NEBU INHALATION SCH (20:48)
--- NOTE | 2019-05-06 21:51 | P.HPIM ---
History of Present Illness H&P Date: 05/06/19 Chief Complaint: Vomiting History of presenting complaint: This is a 73-year-old patient who is a resident of [facility] before per Dr. Jones. Patient was noticed by the staff Heather with yellow emesis on her sheets in the bed. There are also several bright red blood closely. Patient was not in distress or any trauma. Patient denied any abdominal pain. At baseline patien t's other in the bed or in the wheelchair. Patient has underlying parkinsonism and is able to feed herself. Patient does follow commands and can answer yes and no questions. Does speak very slowly. Chronic stable medical conditions include coronary artery disease, COPD, hypertension, hyperlipidemia, peripheral artery disease, advanced Parkinson's disease, dysphagia liquids Kiel arthritis. Patient's daughters including Munira and Lorena R legal guardians. One of patient's daughters at the bedside. To help most of the history. Patient has a slight congested cough. No fever no chills. Not really would also question to follow simple commands. Review of systems cannot be done because of patient's limited historian Social history: Lives at [facility]. The use a [place] lift wheelchair. Occasionally needs help with feeding. Smoked from 1959 through 2003. A pack a day. No alcohol. Physical examination: VITAL SIGNS: 97, 85, 16, 141/82, 95% room air GENERAL: BMI 22.5 daily but tired appearing awake. EYES: [Pupils equal. Conjunctiva pale l. HEENT: External appearance of nose and ears normal, oral cavity grossly normal. NECK: JVD unable to assess; masses not palpable. HEART: First and second heart sounds are normal; no edema. LUNGS: Respiratory rate slightly increased; decreased breath sound. ABDOMEN: Soft, nontender, liver spleen not palpable, no masses palpable. PSYCH: Following simple commandsl. NEUROLOGICAL: [Cranial nerves grossly intact; no facial asymmetry, cogwheel rigidity LYMPHATICS: No lymph nodes palpable in the axilla and neck INVESTIGATIONS, reviewed in the clinical context: White count 12 hemoglobin 15.1 potassium 4.9 crit 0.65 UA positive for leukoesterase WBC Assessment: -Acute upper GI bleed patient was noted to have blood clots, patient is on aspirin, Plavix and patient may have underlying peptic ulcer disease -COPD in an ex-smoker -Coronary artery disease with a prior history of "of bypass -Hyperlipidemia -Essential hypertension -Primary osteoarthritis -Idiopathic Parkinson's disease and bypass -Peripheral arterial disease -Abdominal aortic aneurysm -Chronic dysphagia specially liquid secondary to Parkinson's. -Chronic osteoporosis -Chronic medical debility mainly wheelchair bound -CODE STATUS-DO NOT RESUSCITATE Plan: -Care was discussed in detail with the patient daughter the bedside. Given patient's age and frailty patient not really a good candidate for EGD. Told that maybe the only option if she continues to bleed. At this point is twice to stop antiplatelet agents and treated with PPIs. Patient was initially nothing by mouth we'll start the patient clear liquids. Following a bit elevated H&H. Other home medications resumed. Advance care planning: Patient overall medical conditions and a condition of frailty and other medical issues were discussed with the patient daughter the bedside. The decided that IT'LL continue with treatment but patient does not for any instrumentation or CPR if she was to stop breathing or hardness.. CODE STATUS will be changed to DO NOT RESUSCITATE. About 20 minutes was spent with advance care planning. Patient's daughters are legal guardians Past Medical History Past Medical History: Asthma, Coronary Artery Disease (CAD), Hyperlipidemia, Hypertension, Osteoarthritis (OA), Vascular Disorder Additional Past Medical History / Comment(s): STATES HEAD INJURY R/T A FALL, OSTEOPOROSIS, CHRONIC BACK PAIN, PAD, STATES USES A WHEELCHAIR MOST OF TIME, bruises present and she bruises easily parkinsons History of Any Multi-Drug Resistant Organisms: None Reported Past Surgical History: Coronary Bypass/CABG Additional Past Surgical History / Comment(s): CYST REMOVED FROM FINGER, FEM/FEM, SPINAL FUSION NECK, COURTNEY CATARACT SX, has a stent in R groin. stent in cartoid artery (right) Past Anesthesia/Blood Transfusion Reactions: No Reported Reaction Past Psychological History: Anxiety Smoking Status: Former smoker Past Alcohol Use History: None Reported Past Drug Use History: None Reported - Past Family History Sister(s) Family Medical History: Cancer Additional Family Medical History / Comment(s): 2 sisters with breast ca Father Family Medical History: Myocardial Infarction ([place]) Additional Family Medical History / Comment(s): several mi's Mother History Unknown: Yes Family Medical History: No Reported History Additional Family Medical History / Comment(s): mom was health from natural causes. Medications and Allergies Home Medications Medication Instructions Recorded Confirmed Type amLODIPine [Norvasc] 5 mg PO DAILY@1700 09/14/16 05/06/19 History Baclofen 10 mg PO TID@0800,1200,1700 05/21/17 05/06/19 History Ferrous Sulfate [Iron (65 MG 325 mg PO Q48H 05/21/17 05/06/19 History Elemental)] Gabapentin [Neurontin] 300 mg PO HS@2100 05/21/17 05/06/19 History Metoprolol Tartrate [Lopressor] 25 mg PO BID@0800,1700 05/21/17 05/06/19 History Na Phos,M-B/Na Phos,Di-Ba [Fleet 133 ml RECTAL DAILY PRN 05/21/17 05/06/19 History Adult] Polyethylene Glycol 3350 [Miralax] 17 gm PO DAILY 05/21/17 05/06/19 History Carbidopa-Levodopa 25-100 mg 2 tab PO BID@0800,1700 01/25/18 05/06/19 History [Sinemet 25-100 mg] Cetirizine HCl 10 mg PO DAILY PRN 01/25/18 05/06/19 History Pravastatin Sodium [Pravachol] 20 mg PO HS@2100 01/25/18 05/06/19 History Clopidogrel [Plavix] 75 mg PO DAILY@0800 tab 01/28/18 05/06/19 Rx Acetaminophen Tab [Tylenol Tab] 500 mg PO Q8H PRN 05/06/19 05/06/19 History Amantadine HCl [Amantadine] 100 mg PO BID@0800,1700 05/06/19 05/06/19 History Aspirin 81 mg PO DAILY 05/06/19 05/06/19 History Bisacodyl [Dulcolax] 10 mg RECTAL DAILY PRN 05/06/19 05/06/19 History Budesonide [Pulmicort] 0.25 mg INHALATION RT-BID@0800,2100 05/06/19 05/06/19 History Cholecalciferol [Vitamin D3 (25 1,000 unit PO DAILY 05/06/19 05/06/19 History Mcg = 1000 Iu)] Ensure Clear 1 can PO BID@0800,1700 05/06/19 05/06/19 History Gabapentin [Neurontin] 100 mg PO BID@0800,1400 05/06/19 05/06/19 History Ipratropium-Albuterol Nebulize 3 ml INHALATION RT-Q6H 05/06/19 05/06/19 History [Duoneb 0.5 mg-3 mg/3 ml Soln] Isosorbide Mononitrate [Isosorbide 30 mg PO DAILY@0800 05/06/19 05/06/19 History Mononitrate ER] Levofloxacin [Levaquin] 250 mg PO DIRECTED 05/06/19 05/06/19 History Levofloxacin [Levaquin] 500 mg PO DAILY 05/06/19 05/06/19 History Loperamide [Imodium] 2 mg PO DAILY PRN 05/06/19 05/06/19 History Mag Hydrox/Al Hydrox/Simeth 15 ml PO Q6H PRN 05/06/19 05/06/19 History [Maalox] Magnesium Hydroxide [Milk of 2,400 mg PO DAILY PRN 05/06/19 05/06/19 History Magnesia] Menthol [Biofreeze] 1 applic TOPICAL Q12H PRN 05/06/19 05/06/19 History Multivitamins, Thera [Multivitamin 1 tab PO DAILY 05/06/19 05/06/19 History (formulary)] Ranitidine HCl [Zantac] 150 mg PO DAILY@0800 05/06/19 05/06/19 History Tamsulosin HCl [Flomax] 0.4 mg PO DAILY 05/06/19 05/06/19 History guaiFENesin [guaiFENesin Oral 200 mg PO Q4H PRN 05/06/19 05/06/19 History Solution] Allergies Allergy/AdvReac Type Severity Reaction Status Date / Time acetaminophen [From [place]] Allergy Unknown Verified 05/06/19 09:26 codeine Allergy Unknown Verified 05/06/19 09:26 egg Allergy Unknown Verified 05/06/19 09:26 hydrocodone [From [place]] Allergy Unknown Verified 05/06/19 09:26 hydromorphone [From Dilaudid] Allergy Unknown Verified 05/06/19 09:26 ibuprofen Allergy Rash/Hives Verified 05/06/19 09:26 shellfish derived [Shrimp] Allergy Rash/Hives Verified 05/06/19 09:26 tomato Allergy Unknown Verified 05/06/19 09:26 strawberry AdvReac Diarrhea Verified 05/06/19 09:26 Physical Exam Vitals: Vital Signs Temp Pulse Resp BP Pulse Ox 05/06/19 10:33 97.6 F 71 16 117/72 95 05/06/19 07:22 97.0 F L 85 16 141/82 95 Intake and Output 05/05/19 05/06/19 05/06/19 22:59 06:59 14:59 Other: Weight 61.235 kg Results CBC & Chem 7: 05/06/19 07:50 05/06/19 07:50 Labs: Abnormal Lab Results - Last 24 Hours (Table) 05/06/19 05/06/19 05/06/19 Range/Units 07:50 07:50 07:50 WBC 12.0 H (3.8-10.6) k/uL Hct 46.2 H (34.0-46.0) % Neutrophils # 10.3 H (1.3-7.7) k/uL Lymphocytes # 0.6 L (1.0-4.8) k/uL Chloride 108 H (98-107) mmol/L Carbon Dioxide 20 L (22-30) mmol/L Glucose 130 H (74-99) mg/dL AST 40 H (14-36) U/L Total Protein 8.3 H (6.3-8.2) g/dL Lipase 16 L (23-300) U/L Urine Appearance Cloudy H (Clear) Urine Protein Trace H (Negative) Urine Blood Moderate H (Negative) Urine Nitrite Positive H (Negative) Ur Leukocyte Esterase Large H (Negative) Urine RBC 58 H (0-5) /hpf Urine WBC 130 H (0-5) /hpf Urine WBC Clumps Occasional H (None) /hpf Calcium Oxalate Crystal Occasional H (None) /hpf Urine Bacteria Occasional H (None) /hpf Urine Mucus Rare H (None) /hpf
[2019-05-06] MEDS ORDERED: ACETAMINOPHEN TAB 500 MG TAB PO PRN (21:52)
[2019-05-06] MEDS: PANTOPRAZOLE 40 MG TABLET PO SCH (23:10)
[2019-05-07] MEDS: IPRATROPIUM-ALBUTEROL 3 ML NEB INHALATION SCH ×6 (03:45→23:34)
[2019-05-07] MEDS: SODIUM CHLORIDE 0.9% 1,000 ML IV SCH ×2 (05:02→22:25)
[2019-05-07] MEDS: BUDESONIDE 0.25 MG/2 ML NEBU INHALATION SCH ×2 (08:36→19:48)
[2019-05-07] MEDS ORDERED: PANTOPRAZOLE 40 MG/10 ML VIAL IV SCH (09:00)
[2019-05-07] MEDS: PIPERACILLIN-TAZOBACTAM 3.375 GM in SODIUM CHLORIDE 0.9% 100 ML IVPB SCH ×2 (09:02→17:27)
[2019-05-07] MEDS: CARBIDOPA-LEVODOPA 25-100 MG 1 EACH TAB PO SCH ×2 (09:02→17:26)
[2019-05-07] MEDS: GABAPENTIN 100 MG CAP PO SCH ×2 (09:02→14:12)
[2019-05-07] MEDS: ISOSORBIDE MONONITRATE ER 30 MG TAB.ER.24H PO SCH (09:02)
[2019-05-07] MEDS: METOPROLOL TARTRATE 25 MG TAB PO SCH ×2 (09:02→17:27)
[2019-05-07] MEDS: PANTOPRAZOLE 40 MG TABLET PO SCH ×2 (09:02→17:26)
[2019-05-07] MEDS: BACLOFEN 10 MG TAB PO SCH ×3 (09:03→17:26)
[2019-05-07] MEDS: TAMSULOSIN 0.4 MG CAP.ER.24H PO SCH (09:03)
[2019-05-07] MEDS: AMANTADINE HCL 100 MG CAP PO SCH ×2 (09:03→17:26)
[2019-05-07 09:27] LABS: Basophils % (A) 1 %; Eosinophils # (A) 0.4 k/uL (0-0.7); Eosinophils % (A) 9 %; HCT 38.9 % (34.0-46.0); HGB 12.9 gm/dL (11.4-16.0); Lymphocytes % (A) 19 %; MCH 30.6 pg (25.0-35.0); MCHC 33.1 g/dL (31.0-37.0); MCV 92.5 fL (80.0-100.0); Mean Platelet Volume 6.7; Monocytes # (A) 0.2 k/uL (0-1.0); Monocytes % (A) 4 %; Neutrophils # (A) 3.3 k/uL (1.3-7.7); Neutrophils % (A) 65 %; Platelet Count 229 k/uL (150-450); RDW 13.1 % (11.5-15.5); WBC 5.2 k/uL (3.8-10.6)
[2019-05-07 09:40] LABS: African American GFR (CKD) >90 (>60 ml/min/1.73 sqM); Anion Gap 7 mmol/L; Blood Urea Nitrogen 10 mg/dL (7-17); Calcium 8.9 mg/dL (8.4-10.2); Carbon Dioxide 23 mmol/L (22-30); Chloride 110 mmol/L (98-107); Glucose 79 mg/dL (74-99); Non-African American GFR(CKD) 88 (>60 ml/min/1.73 sqM); Potassium 4.1 mmol/L (3.5-5.1); Sodium 140 mmol/L (137-145)
[2019-05-07] MEDS: amLODIPine 5 MG TAB PO SCH (17:26)
--- NOTE | 2019-05-07 22:02 | P.PN ---
Progress Note - Text Progress Note Date: 05/07/19 Chief Complaint: Vomiting History of presenting complaint: This is a 73-year-old patient who is a resident of [facility] before per Dr. Jones. Patient was noticed by the staff Heather with yellow emesis on her sheets in the bed. There are also several bright red blood closely. Patient was not in distress or any trauma. Patient denied any abdominal pain. At baseline patient's other in the bed or in the wheelchair. Patient has underlying parkinsonism and is able to feed herself. Patient does follow commands and can answer yes and no questions. Does speak very slowly. Chronic stable medical conditions include coronary artery disease, COPD, hypertension, hyperlipidemia, peripheral artery disease, advanced Parkinson's disease, dysphagia liquids Kiel arthritis. Patient's daughters including Munira and Lorena Brennan legal guardians. Today-eating better with assistance. No further bleeding or vomiting. Patient does follow simple commands. Speaks slowly. Review of systems cannot be done because of patient's limited historian Active Medications Albuterol/Ipratropium (Duoneb 0.5 Mg-3 Mg/3 Ml Soln) 3 ml INHALATION RT-Q4H [facility] Last Admin: 05/07/19 19:48 Dose: 3 ml Documented by: Amantadine HCl (Symmetrel) 100 mg PO BID@0800,1700 [facility] Last Admin: 05/07/19 17:26 Dose: 100 mg Documented by: Amlodipine Besylate (Norvasc) 5 mg PO DAILY@1700 [facility] Last Admin: 05/07/19 17:26 Dose: Not Given Documented by: Baclofen (Lioresal) 10 mg PO TID@0800,1200,1700 [facility] Last Admin: 05/07/19 17:26 Dose: 10 mg Documented by: Budesonide (Pulmicort) 0.25 mg INHALATION RT-BID@0800,2100 [facility] Last Admin: 05/07/19 19:48 Dose: 0.25 mg Documented by: Carbidopa/Levodopa (Sinemet 25-100) 2 each PO BID@0800,1700 [facility] Last Admin: 05/07/19 17:26 Dose: 2 each Documented by: Gabapentin (Neurontin) 100 mg PO BID@0800,1400 [facility] Last Admin: 05/07/19 14:12 Dose: 100 mg Documented by: Gabapentin (Neurontin) 300 mg PO HS@2100 [facility] Last Admin: 05/06/19 19:59 Dose: 300 mg Documented by: Piperacillin Sod/Tazobactam (Sod 3.375 gm/ Sodium Chloride) 100 mls @ 25 mls/hr IVPB Q8HR [facility] Last Admin: 05/07/19 17:27 Dose: 25 mls/hr Documented by: Sodium Chloride (Saline 0.9%) 1,000 mls @ 110 mls/hr IV .Q9H6M [facility] Last Admin: 05/07/19 05:02 Dose: Not Given Documented by: Ceftriaxone Sodium 1 gm/ (Sodium Chloride) 50 mls @ 100 mls/hr IVPB Q24H [facility] Last Admin: 05/06/19 23:10 Dose: 100 mls/hr Documented by: Isosorbide Mononitrate (Imdur) 30 mg PO DAILY@0800 [facility] Last Admin: 05/07/19 09:02 Dose: 30 mg Documented by: Metoprolol Tartrate (Lopressor) 25 mg PO BID@0800,1700 [facility] Last Admin: 05/07/19 17:27 Dose: Not Given Documented by: Naloxone HCl (Narcan) 0.2 mg IV Q2M PRN PRN Reason: Opioid Reversal Ondansetron HCl (Zofran) 4 mg IVP Q8HR PRN PRN Reason: Nausea And Vomiting Pantoprazole Sodium (Protonix) 40 mg PO AC-BID [facility] Last Admin: 05/07/19 17:26 Dose: 40 mg Documented by: Pravastatin Sodium (Pravachol) 20 mg PO HS@2100 [facility] Last Admin: 05/06/19 19:59 Dose: 20 mg Documented by: Tamsulosin HCl (Flomax) 0.4 mg PO DAILY [facility] Last Admin: 05/07/19 09:03 Dose: 0.4 mg Documented by: Physical examination: VITAL SIGNS: 97.7, 64, 16, 84/54, 94% on 2 L GENERAL: Propped up in bed, but more awake EYES: [Pupils equal. Conjunctiva pale HEENT: External appearance of nose and ears normal, oral cavity grossly normal. NECK: JVD unable to assess; masses not palpable. HEART: First and second heart sounds are normal; no edema. LUNGS: Respiratory rate slightly increased; decreased breath sound. ABDOMEN: Soft, nontender, liver spleen not palpable, no masses palpable. PSYCH: Following simple commandsl. NEUROLOGICAL: cogwheel rigidity, slow speech INVESTIGATIONS, reviewed in the clinical context: White count 5.2 hemoglobin 12.9 potassium 4.1 crit 0.64 Previous testing White count 12 hemoglobin 15.1 potassium 4.9 crit 0.65 UA positive for leukoesterase WBC Assessment: -Acute upper GI bleed patient was noted to have blood clots, patient is on aspirin, Plavix and patient may have underlying peptic ulcer disease. Being managed conservatively. No further evidence of bleeding. -COPD in an ex-smoker -Coronary artery disease with a prior history of "of bypass -Hyperlipidemia -Essential hypertension -Primary osteoarthritis -Idiopathic Parkinson's disease and bypass -Peripheral arterial disease -Abdominal aortic aneurysm -Chronic dysphagia specially liquid secondary to Parkinson's. -Chronic osteoporosis -Chronic medical debility mainly wheelchair bound -CODE STATUS-DO NOT RESUSCITATE Plan: Diet is being advanced. Given her multiple comorbidities to manage conservati vely. Tolerating diet better. Abdomen stable can probably be discharged back to the [facility] tomorrow.
[2019-05-07] MEDS: PRAVASTATIN SODIUM 20 MG TAB PO SCH (22:23)
[2019-05-07] MEDS: GABAPENTIN 300 MG CAP PO SCH (22:24)
[2019-05-08] MEDS: PIPERACILLIN-TAZOBACTAM 3.375 GM in SODIUM CHLORIDE 0.9% 100 ML IVPB SCH ×2 (00:32→08:09)
[2019-05-08] MEDS: SODIUM CHLORIDE 0.9% 1,000 ML IV SCH ×2 (00:32→08:09)
[2019-05-08] MEDS: IPRATROPIUM-ALBUTEROL 3 ML NEB INHALATION SCH ×3 (03:04→11:54)
[2019-05-08 08:04] LABS: HGB 11.8 gm/dL (11.4-16.0); MCH 30.2 pg (25.0-35.0); MCHC 32.8 g/dL (31.0-37.0); MCV 92.1 fL (80.0-100.0); Mean Platelet Volume 6.3; Platelet Count 231 k/uL (150-450); RBC 3.91 m/uL (3.80-5.40); RDW 13.2 % (11.5-15.5); WBC 5.3 k/uL (3.8-10.6)
[2019-05-08] MEDS: BUDESONIDE 0.25 MG/2 ML NEBU INHALATION SCH (08:05)
[2019-05-08] MEDS: CARBIDOPA-LEVODOPA 25-100 MG 1 EACH TAB PO SCH (08:07)
[2019-05-08] MEDS: TAMSULOSIN 0.4 MG CAP.ER.24H PO SCH (08:07)
[2019-05-08] MEDS: BACLOFEN 10 MG TAB PO SCH ×2 (08:07→11:32)
[2019-05-08] MEDS: PANTOPRAZOLE 40 MG TABLET PO SCH (08:07)
[2019-05-08] MEDS: METOPROLOL TARTRATE 25 MG TAB PO SCH (08:08)
[2019-05-08] MEDS: AMANTADINE HCL 100 MG CAP PO SCH (08:08)
[2019-05-08] MEDS: ISOSORBIDE MONONITRATE ER 30 MG TAB.ER.24H PO SCH (08:08)
[2019-05-08] MEDS: GABAPENTIN 100 MG CAP PO SCH (08:08)
[2019-05-08 08:40] VITALS: BP 108/62; RESP 17; TEMP 97.5
[2019-05-08 11:56] VITALS: PULSE 68
--- NOTE | 2019-05-08 12:39 | P.DS ---
Providers Date of admission: 05/06/19 10:43 Expected date of discharge: 05/08/19 Attending physician: Sekou Mendez Consults: 05/06/19 10:27 Consult Physician Urgent Consulting Provider: Mayank Maradiaga Consult Reason/Comments: Hematemesis Do you want consulting provider notified?: Yes [facility] Course: Chief Complaint: Vomiting Hospital course: This is a 73-year-old patient who is a resident of [facility] [place] followed by Dr. Jones. Patient was noticed by the staff with yellow emesis on her sheets in the bed. There are also several bright red blood clots. Patient was not in distress or any trauma. Patient denied any abdominal pain. At baseline patient is the bed or in the wheelchair. Patient has underlying parkinsonism and is able to feed herself. Patient does follow commands and can answer by speaking very slowly. Chronic stable medical conditions include coronary artery disease, COPD, hypertension, hyperlipidemia, peripheral artery disease, advanced Parkinson's disease, dysphagia liquids Kiel arthritis. Patient's daughters including Munira and Lorena R legal guardians. Patient was managed conservatively. No further episodes of bleeding. Eating with assistance. Plavix has been discontinued. May resume aspirin and 5 days. PPIs have been added. Hemoglobin did drop from 15.1 down to 11.8. Consultation: Dr. Wilkerson from GI Physical examination: VITAL SIGNS: 97.5, 63, 17, 108/62, 97% on 2 L GENERAL: Laying in bed, comfortable EYES: [Pupils equal. Conjunctiva pale HEENT: External appearance of nose and ears normal, oral cavity grossly normal. NECK: JVD unable to assess; masses not palpable. HEART: First and second heart sounds are normal; no edema. LUNGS: Respiratory rate normal; decreased breath sound. ABDOMEN: Soft, nontender, liver spleen not palpable, no masses palpable. PSYCH: Houses questions slowly. NEUROLOGICAL: cogwheel rigidity, slow speech INVESTIGATIONS, reviewed in the clinical context: Hemoglobin 11.8 Previous testing White count 12 hemoglobin 15.1 potassium 4.9 crit 0.65 UA positive for leukoesterase WBC Discharge diagnoses: -Acute upper GI bleed patient was noted to have blood clots, patient is on aspirin, Plavix and patient may have underlying peptic ulcer disease. Being managed conservatively. No further evidence of bleeding. -Acute blood loss anemia from GI bleed -Acute UTI with cystitis -COPD in an ex-smoker -Coronary artery disease with a prior history of "of bypass -Hyperlipidemia -Essential hypertension -Primary osteoarthritis -Idiopathic Parkinson's disease and bypass -Peripheral arterial disease -Abdominal aortic aneurysm -Chronic dysphagia specially liquid secondary to Parkinson's. -Chronic osteoporosis -Chronic medical debility mainly wheelchair bound -CODE STATUS-DO NOT RESUSCITATE Disposition: [facility] Patient Condition at Discharge: Undetermined Plan - Discharge Summary Discharge Rx Participant: No New Discharge Prescriptions: New Psyllium Husk 100% [Metamucil Packet] 6 gm PO DAILY #1 packet Pantoprazole [Protonix] 40 mg PO AC-BID tablet.dr Continue amLODIPine [Norvasc] 5 mg PO DAILY@1700 Metoprolol Tartrate [Lopressor] 25 mg PO BID@0800,1700 Na Phos,M-B/Na Phos,Di-Ba [Fleet Adult] 133 ml RECTAL DAILY PRN PRN Reason: Constipation Baclofen 10 mg PO TID@0800,1200,1700 Ferrous Sulfate [Iron (65 MG Elemental)] 325 mg PO Q48H Pravastatin Sodium [Pravachol] 20 mg PO HS@2100 Carbidopa-Levodopa 25-100 mg [Sinemet 25-100 mg] 2 tab PO BID@0800,1700 Acetaminophen Tab [Tylenol] 500 mg PO Q8H PRN PRN Reason: Pain Mag Hydrox/Al Hydrox/Simeth [Maalox] 15 ml PO Q6H PRN PRN Reason: Gi Upset Loperamide [Imodium] 2 mg PO DAILY PRN PRN Reason: Loose Stool Menthol [Biofreeze] 1 applic TOPICAL Q12H PRN PRN Reason: Pain Ipratropium-Albuterol Nebulize [Duoneb 0.5 mg-3 mg/3 ml Soln] 3 ml INHALATION RT-Q6H Bisacodyl [Dulcolax] 10 mg RECTAL DAILY PRN PRN Reason: Constipation Ensure Clear 1 can PO BID@0800,1700 Budesonide [Pulmicort] 0.25 mg INHALATION RT-BID@0800,2100 Amantadine HCl [Amantadine] 100 mg PO BID@0800,1700 Multivitamins, Thera [Multivitamin (formulary)] 1 tab PO DAILY Isosorbide Mononitrate [Isosorbide Mononitrate ER] 30 mg PO DAILY@0800 Tamsulosin HCl [Flomax] 0.4 mg PO DAILY Aspirin 81 mg PO DAILY Magnesium Hydroxide [Milk of Magnesia] 2,400 mg PO DAILY PRN PRN Reason: Constipation Gabapentin [Neurontin] 300 mg PO HS@2100 #3 cap Gabapentin [Neurontin] 100 mg PO BID@0800,1400 #6 cap Discontinued Polyethylene Glycol 3350 [Miralax] 17 gm PO DAILY Cetirizine HCl 10 mg PO DAILY PRN PRN Reason: Allergy Symptoms Clopidogrel [Plavix] 75 mg PO DAILY@0800 tab Cholecalciferol [Vitamin D3 (25 Mcg = 1000 Iu)] 1,000 unit PO DAILY Levofloxacin [Levaquin] 250 mg PO DIRECTED guaiFENesin [guaiFENesin Oral Solution] 200 mg PO Q4H PRN PRN Reason: Cough Levofloxacin [Levaquin] 500 mg PO DAILY Ranitidine HCl [Zantac] 150 mg PO DAILY@0800 Discharge Medication List amLODIPine [Norvasc] 5 mg PO DAILY@1700 09/14/16 [History] Baclofen 10 mg PO TID@0800,1200,1700 05/21/17 [History] Ferrous Sulfate [Iron (65 MG Elemental)] 325 mg PO Q48H 05/21/17 [History] Metoprolol Tartrate [Lopressor] 25 mg PO BID@0800,1700 05/21/17 [History] Na Phos,M-B/Na Phos,Di-Ba [Fleet Adult] 133 ml RECTAL DAILY PRN 05/21/17 [History] Carbidopa-Levodopa 25-100 mg [Sinemet 25-100 mg] 2 tab PO BID@0800,1700 01/25/18 [History] Pravastatin Sodium [Pravachol] 20 mg PO HS@2100 01/25/18 [History] Acetaminophen Tab [Tylenol] 500 mg PO Q8H PRN 05/06/19 [History] Amantadine HCl [Amantadine] 100 mg PO BID@0800,1700 05/06/19 [History] Aspirin 81 mg PO DAILY 05/06/19 [History] Bisacodyl [Dulcolax] 10 mg RECTAL DAILY PRN 05/06/19 [History] Budesonide [Pulmicort] 0.25 mg INHALATION RT-BID@0800,2100 05/06/19 [History] Ensure Clear 1 can PO BID@0800,1700 05/06/19 [History] Ipratropium-Albuterol Nebulize [Duoneb 0.5 mg-3 mg/3 ml Soln] 3 ml INHALATION RT-Q6H 05/06/19 [History] Isosorbide Mononitrate [Isosorbide Mononitrate ER] 30 mg PO DAILY@0800 05/06/19 [History] Loperamide [Imodium] 2 mg PO DAILY PRN 05/06/19 [History] Mag Hydrox/Al Hydrox/Simeth [Maalox] 15 ml PO Q6H PRN 05/06/19 [History] Magnesium Hydroxide [Milk of Magnesia] 2,400 mg PO DAILY PRN 05/06/19 [History] Menthol [Biofreeze] 1 applic TOPICAL Q12H PRN 05/06/19 [History] Multivitamins, Thera [Multivitamin (formulary)] 1 tab PO DAILY 05/06/19 [History] Tamsulosin HCl [Flomax] 0.4 mg PO DAILY 05/06/19 [History] Gabapentin [Neurontin] 100 mg PO BID@0800,1400 #6 cap 05/08/19 [Rx] Gabapentin [Neurontin] 300 mg PO HS@2100 #3 cap 05/08/19 [Rx] Pantoprazole [Protonix] 40 mg PO AC-BID tablet. 05/08/19 [Rx] Psyllium Husk 100% [Metamucil Packet] 6 gm PO DAILY #1 packet 05/08/19 [Rx] Follow up Appointment(s)/Referral(s): Farooq Jones DO [Primary Care Provider] - 1-2 days Activity/Diet/Wound Care/Special Instructions: Resume aspirin' in 5 days
== END 2019-05-08 13:55 | disposition home or self-care (01) ==
LOC: EC 07:20 → 3NMEDONC 10:43 → 4SSUR 15:36
PROVIDERS: ADMIT Hospitalist; ATTEND Hospitalist
DX: K92.2 Gastrointestinal hemorrhage, unspecified (principal); D62 Acute posthemorrhagic anemia; N30.90 Cystitis, unspecified without hematuria; K92.0 Hematemesis; J44.9 Chronic obstructive pulmonary disease, unspecified; I25.10 Atherosclerotic heart disease of native coronary artery without angina pectoris; E78.5 Hyperlipidemia, unspecified; I10 Essential (primary) hypertension; G20 Parkinson's disease; R13.10 Dysphagia, unspecified; M19.91 Primary osteoarthritis, unspecified site; I73.9 Peripheral vascular disease, unspecified; I71.4 Abdominal aortic aneurysm, without rupture; M81.0 Age-related osteoporosis without current pathological fracture; M54.9 Dorsalgia, unspecified; G89.29 Other chronic pain; F41.9 Anxiety disorder, unspecified; R41.82 Altered mental status, unspecified; Z79.82 Long term (current) use of aspirin; Z79.02 Long term (current) use of antithrombotics/antiplatelets; Z79.899 Other long term (current) drug therapy; Z88.6 Allergy status to analgesic agent; Z91.012 Allergy to eggs; Z88.5 Allergy status to narcotic agent; Z91.013 Allergy to seafood; Z91.018 Allergy to other foods; Z79.51 Long term (current) use of inhaled steroids; Z79.2 Long term (current) use of antibiotics; Z87.891 Personal history of nicotine dependence; Z99.3 Dependence on wheelchair; R54 Age-related physical debility; Z66 Do not resuscitate; Z87.820 Personal history of traumatic brain injury; Z91.81 History of falling; Z95.1 Presence of aortocoronary bypass graft; Z98.1 Arthrodesis status; Z95.828 Presence of other vascular implants and grafts; Z98.42 Cataract extraction status, left eye; Z98.41 Cataract extraction status, right eye; Z80.3 Family history of malignant neoplasm of breast; Z82.49 Family history of ischemic heart disease and other diseases of the circulatory system
CPT/HCPCS: 96366 ×4; 96367; 96365; 96375; 99285; 36415; 94640 ×6; 93005; 80053; 80048; 82150; 83690; 84484; 85025 ×2; 85027; 85610; 85730; 81001; 71045; 74018; G0378 ×3; J2543 ×3; J2405; J0696 ×2; C9113